=== PATIENT | female | born 1965 | race Caucasian/White ===

== ENCOUNTER 2016-10-06 17:02 | Inpatient (IN) ==
[2016-10-06] MEDS ORDERED: CLINDAMYCIN INJ 600 MG in PREMIX 1 EACH IV STA (17:19)
[2016-10-06] MEDS ORDERED: SODIUM CHLORIDE 0.9% 500 ML IV STA (17:19)
[2016-10-06 18:12] LABS: Basophils # 0.1 10*3/uL (0.0-0.2); Basophils % 0.7 % (0.0-0.8); Eosinophils # 0.3 10*3/uL (0.0-0.87); Eosinophils % 3.7 % (0.00-10.9); Hematocrit 31.1 VOL% (35.7-47.0); Hemoglobin 10.5 GM/DL (12.0-16.0); Immature Granulocytes % 0.5 %; Immature Granulocytes Absolute 0.04 #; Lymphocytes # 1.4 10*3/uL (1.4-4.0); Lymphocytes % 17.3 % (21.3-54.2); Mean Corpuscular HGB Conc 33.8 GM/DL (32-36); Mean Corpuscular Hemoglobin 31 PG (27-34); Mean Corpuscular Volume 91.2 FL (87-102); Mean Platelet Volume 10.2 FL (9.6-12.0); Monocytes # 0.6 10*3/uL (0.11-0.8); Monocytes % 6.7 % (1.7-12.7); Neutrophils # 5.8 10*3/uL (1.4-7.4); Neutrophils % 71.1 % (38.7-73.9); Platelet Count 272 10*3/uL (130-400); Red Blood Count 3.41 10*6/uL (3.8-5.5); Red Cell Distribution Width 15.8 % (9.3-17.3); White Blood Count 8.2 10*3/uL (4.5-13.71)
--- NOTE | 2016-10-06 18:17 | CT Report ---
History: Nausea and vomiting. History of CVA Date: 10/06/2016 Study: CT head without contrast Comparison exam: July 30, [address] sections were obtained through the head without IV contrast. Total DLP measures 282.6 mGy*cm. The patient has undergone interval cranioplasty since the comparison CT. Metallic plate and screws stabilize a bony calvarial flap. The ventricles are midline in position without evidence of hydrocephalus. There is evidence of a chronic large hemispheric stroke on the left as before, with ex vacuo dilatation of the left lateral ventricle. There is also chronic lacunar infarction in the left putamen and posterior left internal capsule. There is no definite acute hemorrhage or new area of ischemia. There is no new intracranial mass. There is a postsurgical fluid collection in the left parietal scalp, superficial to the calvarium, measuring over 4 cm. This could represent postsurgical seroma. No significant interval changes have occurred otherwise. Impression: There is evidence of interval cranioplasty on the left. Previous ischemic changes from a large hemispheric stroke on the left are noted as before. No new areas of hemorrhage or obvious new stroke. Postsurgical soft tissue swelling and fluid collection superficial to the left parietal calvarium PROCEDURE INTERPRETED AT [facility] DEPARTMENT OF RADIOLOGY Final Report Signed by: Dr. Annabel Valenzuela
[2016-10-06] MEDS ORDERED: CLINDAMYCIN INJ 50 ML IV ONE (18:28)
--- NOTE | 2016-10-06 18:29 | CT Report ---
History: Left parotid swelling Date: 10/06/2016 Study: CT soft tissue neck with IV contrast Comparison exam: Neck CT August 29, [address] sections were obtained through the soft tissue neck following 80 mL Omnipaque 350 IV contrast. Multiplanar reconstruction images are also evaluated. Total DLP measures 282.6 mGy*cm. There is extensive lymphadenopathy on the left. This includes a 20 mm short axis diameter left submandibular node, 19 mm internal jugular chain node inferior to the hyoid level, additional left internal jugular lymphadenopathy superior and inferior to the level of hyoid, and enlarged posterior cervical lymph nodes at and below the level of the hyoid. Some mildly enlarged intraparotid nodes are present as well. There is no intrinsic thyroid mass. There are remote tracheostomy changes below the level of the thyroid gland with mild narrowing of the trachea at this level. There is no intrinsic thyroid lesion. There is lobular mucosal thickening in the right maxillary sinus. There is mild scattered cervical degenerative disc narrowing. Impression: Extensive lymphadenopathy on the left. Consider reactive lymphadenopathy, lymphoma, and metastatic disease PROCEDURE INTERPRETED AT [facility] DEPARTMENT OF RADIOLOGY Final Report Signed by: Dr. Annabel Valenzuela
[2016-10-06 18:32] LABS: Albumin 3.3 G/DL (3.4-5.0); Bilirubin,Total 0.4 MG/DL (0.2-1.0); Calcium 8.9 MG/DL (8.5-10.1); Osmolality,Calculated 280.3 MOS/KG (273-304); Potassium 4.2 MMOL/L (3.5-5.1)
--- NOTE | 2016-10-06 18:50 | XRay Report ---
History: Dyspnea Date: 10/06/2016 Study: Chest x-ray AP portable Comparison exam: Chest x-ray September 19, 2016 The cardiac silhouette is borderline prominent. The mediastinal contours are similar to the previous study. The pulmonary vasculature is not engorged. There is some mild hazy and strandy increased perihilar parenchymal disease which could represent pneumonia. There is no gross pleural effusion. Shallow inspiration. The osseous structures are unchanged. The tracheostomy tube has been removed. Impression: Bilateral perihilar and infrahilar infiltrate which could represent pneumonia. Followup x-rays may provide clarification PROCEDURE INTERPRETED AT [facility] DEPARTMENT OF RADIOLOGY Final Report Signed by: Dr. Annabel Valenzuela
[2016-10-06] MEDS ORDERED: DEXAMETHASONE 4 MG/1 ML VIAL IV STA (19:09)
[2016-10-06] MEDS ORDERED: PIPERACILLIN/TAZOBACTAM 3,375 MG in SODIUM CHLORIDE 0.9% 100 ML IV STA (19:09)
[2016-10-06] MEDS ORDERED: DEXAMETHASONE 10 MG/1 ML VIAL ONE (19:39)
[2016-10-06] MEDS ORDERED: PIPERACILLIN/TAZOBACTAM 3,375 MG VIAL IV ONE (19:39)
--- NOTE | 2016-10-06 19:42 | Hospitalist History & Physical ---
Assessment and Plan - Time spent with patient Time spent with patient: Greater than 30 minutes (1) Parotid swelling Status: Acute Assessment and plan: She has left parotid swelling. We'll place her in ICU overnight for close monitoring of her airway. She's been cultured and placed on empiric IV antibiotics. We'll consult ENT for their evaluation in the morning. Of note her chest x-ray reveals possible pneumonitis however she is having no pulmonary symptoms at this time. We will continue low-dose O2, nebulizer therapy, IV antibiotics. 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 She's been at [facility]. Been no recent noted neurologic deterioration her condition. We'll continue current medical regimen and plan transfer back to [facility] once her acute issues have been resolved. Current Visit: No (4) Right hemiplegia Status: Chronic Current Visit: No (5) Seizures Status: Chronic Assessment and plan: No recent seizure activity documented. We'll continue her current antiepileptics. Current Visit: No (6) Status post craniotomy Status: Chronic Current Visit: No (7) Status post insertion of percutaneous endoscopic gastrostomy (PEG) tube Status: Chronic Assessment and plan: She received enteral feedings per PEG tube. We'll hold nothing by mouth for tonight and reinitiate after ENT evaluation in the a.m. Current Visit: No (8) Status post tracheostomy Status: Chronic Assessment and plan: Tracheostomy site appears to be healing well. We'll continue to follow. Current Visit: No History of Present Illness Chief complaint: clammy, nausea, vomiting, left neck swelling History of present illness: Ms. Goddard is a 51 year old female who is been at [facility] after sustaining a hemorrhagic followed by ischemic cerebrovascular accident. Her states he was called today and check an episode where she was clammy with associated nausea and vomiting. She had some swelling about her left neck yesterday which worsened today. There's no history of fever, chest pain, cough , shortness of breath, abdominal pain, melena, hematochezia, hematemesis. She is a phasic will obey simple commands. She previous tracheotomy which is healing and receives feedings per PEG tube. She was evaluated in our emergency room and is felt that she would benefit from admission with close observation in the ICU overnight, IV antibiotics empirically, and ENT evaluation in the a.m. Home Medications Medication Instructions Recorded Confirmed Type Acyclovir [Acyclovir Cap/Tab] 400 mg PO BID 03/17/15 10/06/16 History Amitriptyline [Elavil] 20 mg PO BEDTIME 03/17/15 10/06/16 History Dextroamphetamine/Amphetamine 30 mg PO AC BREAKFAST 03/17/15 10/06/16 History [Adderall XR] Loratadine [Claritin] 10 mg PO DAILY PRN 03/17/15 10/06/16 History Methocarbamol Tab [Robaxin Tab] 750 mg PO BID 03/17/15 10/06/16 History Atorvastatin [Lipitor] 10 mg PO BEDTIME 09/18/16 10/06/16 History Hydrocodone/Acetaminophen 1 each PO Q6H PRN 09/18/16 10/06/16 History [Hydrocodon-Acetaminophen 5-325] Naproxen [Naprosyn Tab] 500 mg PO DAILY 09/18/16 10/06/16 History Pantoprazole Tab [Protonix Tab] 40 mg PO DAILY 09/18/16 10/06/16 History guaiFENesin/DM ER 600-30 [Mucinex 1 tablet PO BID 09/18/16 10/06/16 History Dm] levETIRAcetam [Levetiracetam] 1,000 mg PO BID 09/18/16 10/06/16 History Acetaminophen [Acetaminophen ER 650 mg PO Q6H PRN 10/06/16 10/06/16 History Tab] Alum/Mag/Simeth Max Str Liquid 30 ml PO Q6H PRN 10/06/16 10/06/16 History [Mylanta Max Strength Liquid] Enoxaparin Sodium 40 mg SUBCUT Q24H 10/06/16 10/06/16 History HYDROcodone/ACETAMIN 5-325 [[place] 2 tablet PO Q6H PRN 10/06/16 10/06/16 History 5-325] Magnesium Hydroxide Susp [Milk of 30 ml PO DAILY PRN 10/06/16 10/06/16 History Magnesia] Nitrofurantoin Macro/[place] 100 mg PO BID 10/06/16 10/06/16 History [Macrobid] Ondansetron HCl/Pf [Ondansetron 4 4 mg IJ Q6H PRN 10/06/16 10/06/16 History mg/2 ml Ampule] Ondansetron Tab [Zofran Tab] 4 mg PO Q6H PRN 10/06/16 10/06/16 History Polyethylene Glycol Powder 17 gm PO DAILY PRN 10/06/16 10/06/16 History [Miralax] Allergies Allergy/AdvReac Type Severity Reaction Status Date / Time No Known Allergies Allergy Verified 03/17/15 13:59 Medical,Surgical,& Family Hx - Medical History Cardio: History of: Hypertension Psychological: History of: ADHD, Depression Neurology: History of: Cerebrovascular Accident (February 2016), Migraine Genitourinary: History of: Recurring Urinary Tract Infections Gastrointestinal: History of: GI Problems (Lactose intolerant) Musculoskeletal: History of: Musculoskeletal Problems (fibromyalgia) Other: History of: Miscellaneous Medical Problems (narcolepsy) - Surgical History Cardiac Surgeries: Sugical HX of: Cardiac Catheterization (x2) Abdominal Surgeries: Patient denies: Abdominal Surgery Reproductive Surgeries: Patient denies;: Genitourinary Surgery, Gynecologic Surgery Additional Surgical History: She's had craniotomy and tracheostomy - Family History Family History: Reports;: Family Cancer (BROTHER), Family Diabetes (FATHER), Family Hypertension (MOTHER AND FATHER), Family Stroke (FAHTER) - Social History Smoking Status: Former smoker Frequency of Alcohol Use: None Type of Drug Use: None 12 point system: reviewed and no additional remarkable complaints except as stated Exam - Constitutional Vitals: Period Temp Pulse Resp BP Sys/Mcwilliams Pulse Ox Last 24 Hr 97.8 F-97.8 F 92-92 18-18 106-106/72-72 97 General appearance: no acute distress - Head Head exam: Present: other (postcraniotomy changes) - Eye Eye exam: Present: EOMI Pupils: Present: DUSTIN - ENT ENT exam: Present: normal oropharynx - Neck Neck exam: Present: other (tender palpable mass over the parotid and left anterior neck; old tracheostomy site with dressing applied with no evidence of purulence or fluctuance or erythema) - Respiratory Respiratory exam: Present: clear to auscultation bilaterally. Absent: rales, rhonchi, wheezes - Cardiovascular Cardiovascular exam: Present: regular rate and rhythm. Absent: systolic murmur , tachycardia - GI/Abdominal GI/Abdominal exam: Present: normal bowel sounds, soft, other (PEG tube in place) . Absent: distended, mass, tenderness, rebound - Extremities Exam Extremities exam: Absent: calf tenderness, edema - Back Exam Back exam: Present: normal inspection - Neurological Exam Neurological exam: Present: alert, other (a phasic with a right hemiparesis; she will obey simple commands) - Psychiatric Psychiatric exam: Absent: agitated, anxious - Skin Skin exam: Present: warm, dry. Absent: rash Results - Labs CBC & BMP: 10/06/16 18:02 10/06/16 18:02 Lab Results: I have reviewed the past 24 hour labs - Diagnostic Findings Procedure: Chest x-ray: report reviewed by me, CT: report reviewed by me
[2016-10-06] MEDS ORDERED: LORATADINE 10 MG TABLET PO PRN (21:03)
[2016-10-06] MEDS ORDERED: MAGNESIUM HYDROXIDE SUSP 30 ML UDCUP PO PRN (21:03)
[2016-10-06] MEDS ORDERED: ONDANSETRON 4 MG/2 ML VIAL IV PRN (21:03)
[2016-10-06] MEDS ORDERED: ACETAMINOPHEN 325 MG TABLET PO PRN (21:03)
[2016-10-06] MEDS ORDERED: ALBUTEROL 0.63 MG/3 ML NEB RESP TX PRN (21:03)
[2016-10-06] MEDS ORDERED: ONDANSETRON 4 MG TABLET PO PRN (21:03)
[2016-10-06] MEDS ORDERED: ALUMINUM/MAGNES/SIMETH MAX STR 30 ML UDCUP PO PRN (21:03)
[2016-10-06] MEDS: SODIUM CHLORIDE 0.9% 1,000 ML IV SCH (21:53)
[2016-10-06] MEDS: levETIRAcetam 500 MG TABLET PO SCH (21:58)
[2016-10-06] MEDS: AMITRIPTYLINE 10 MG TABLET PO SCH (21:58)
[2016-10-06] MEDS: ENOXAPARIN 40 MG/0.4 ML SYRINGE SUBCUT SCH (21:58)
[2016-10-06] MEDS: ATORVASTATIN 10 MG TABLET PO SCH (21:58)
[2016-10-06] MEDS: METHOCARBAMOL 750 MG TABLET PO SCH (21:59)
[2016-10-06] MEDS: ACYCLOVIR 200 MG CAPSULE PO SCH (21:59)
[2016-10-06] MEDS: guaiFENesin/DM ER 600-30 MG TABLET PO SCH (21:59)
[2016-10-06] MEDS: ALBUTEROL 0.63 MG/3 ML NEB RESP TX SCH (23:46)
[2016-10-07] MEDS: ALBUTEROL 0.63 MG/3 ML NEB RESP TX SCH ×6 (03:27→23:02)
[2016-10-07 04:51] LABS: Basophils % 0.5 % (0.0-0.8); Eosinophils % 0.2 % (0.00-10.9); Hematocrit 28.1 VOL% (35.7-47.0); Immature Granulocytes % 0.3 %; Immature Granulocytes Absolute 0.02 #; Lymphocytes # 0.9 10*3/uL (1.4-4.0); Lymphocytes % 13.6 % (21.3-54.2); Mean Corpuscular HGB Conc 35.6 GM/DL (32-36); Mean Corpuscular Hemoglobin 32 PG (27-34); Mean Corpuscular Volume 88.6 FL (87-102); Mean Platelet Volume 10.7 FL (9.6-12.0); Monocytes % 0.6 % (1.7-12.7); Neutrophils # 5.3 10*3/uL (1.4-7.4); Neutrophils % 84.8 % (38.7-73.9); Platelet Count 276 10*3/uL (130-400); Red Blood Count 3.17 10*6/uL (3.8-5.5); Red Cell Distribution Width 15.3 % (9.3-17.3); White Blood Count 6.2 10*3/uL (4.5-13.71)
[2016-10-07] MEDS: PIPERACILLIN/TAZOBACTAM 3,375 MG in SODIUM CHLORIDE 0.9% 100 ML IV SCH ×3 (05:04→20:24)
[2016-10-07] MEDS: SODIUM CHLORIDE 0.9% 1,000 ML IV SCH ×2 (05:05→18:26)
[2016-10-07 05:20] LABS: Calcium 8.4 MG/DL (8.5-10.1); Osmolality,Calculated 289.7 MOS/KG (273-304); Potassium 4.7 MMOL/L (3.5-5.1)
--- NOTE | 2016-10-07 08:38 | Hospitalist Progress Note ---
Assessment and Plan - Time spent with patient Time spent with patient: Less than 30 minutes (1) Parotid swelling Status: Acute Assessment and plan: Swelling also extends above and around the ear. There is a fluid collection in the left scalp region status post craniotomy and bone flap replacement. No fevers overnight. ENT consult reviewed. Needle aspiration pending for today. KUB ordered. 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 Patient continues to have swelling and discomfort underneath the left jaw and into the left neck. Patient seen and examined with nurse and her at the bedside. Exam - Constitutional Vitals: Period Temp Pulse Resp BP Sys/Mcwilliams Pulse Ox Last 24 Hr 96.3 F-98.4 F 61-89 15-19 80-128/52-90 91-100 General appearance: no acute distress - Head Head exam: Present: hematoma, other (craniotomy noted) - Eye Pupils: Present: DUSTIN - Neck Neck exam: Present: tenderness (Swelling also extends above and around the ear. There is a fluid collection in the left scalp region status post craniotomy and bone flap replacement.) - Respiratory Respiratory exam: Present: clear to auscultation bilaterally - Cardiovascular Cardiovascular exam: Present: regular rate and rhythm - GI/Abdominal GI/Abdominal exam: Present: normal bowel sounds - Extremities Exam Extremities exam: Absent: edema - Neurological Exam Neurological exam: Present: alert, other (aphasic, right hemiparesis noted) - Skin Skin exam: Present: normal color, dry, intact. Absent: rash Results - Labs CBC & BMP: 10/07/16 03:36 10/07/16 03:36 Lab Results: I have reviewed the past 24 hour labs Specialty Discharge - Follow Up or Referrals - Discharge Medications No Action Acyclovir [Acyclovir Cap/Tab] 400 mg PO BID Dextroamphetamine/Amphetamine [Adderall XR] 30 mg PO AC BREAKFAST Amitriptyline [Elavil] 20 mg PO BEDTIME Loratadine [Claritin] 10 mg PO DAILY PRN PRN Reason: Allergy Symptoms Methocarbamol Tab [Robaxin Tab] 750 mg PO BID Polyethylene Glycol Powder [Miralax] 17 gm PO DAILY PRN PRN Reason: Constipation Ondansetron Tab [Zofran Tab] 4 mg PO Q6H PRN PRN Reason: Nausea/Vomiting Nitrofurantoin Macro/[place] [Macrobid] 100 mg PO BID Magnesium Hydroxide Susp [Milk of Magnesia] 30 ml PO DAILY PRN PRN Reason: Indigestion Enoxaparin Sodium 40 mg SUBCUT Q24H Alum/Mag/Simeth Max Str Liquid [Mylanta Max Strength Liquid] 30 ml PO Q6H PRN PRN Reason: Indigestion HYDROcodone/ACETAMIN 5-325 [[place] 5-325] 2 tablet PO Q6H PRN PRN Reason: Pain Ondansetron HCl/Pf [Ondansetron 4 mg/2 ml Ampule] 4 mg IJ Q6H PRN PRN Reason: Nausea/Vomiting Acetaminophen [Acetaminophen ER Tab] 650 mg PO Q6H PRN PRN Reason: Fever levETIRAcetam [Levetiracetam] 1,000 mg PO BID Pantoprazole Tab [Protonix Tab] 40 mg PO DAILY Naproxen [Naprosyn Tab] 500 mg PO DAILY guaiFENesin/DM ER 600-30 [Mucinex Dm] 1 tablet PO BID Atorvastatin [Lipitor] 10 mg PO BEDTIME Hydrocodone/Acetaminophen [Hydrocodon-Acetaminophen 5-325] 1 each PO Q6H PRN PRN Reason: Pain Moderate (4-7)
--- NOTE | 2016-10-07 09:40 | XRay Report ---
XR KUB Indication: Abdominal pain. Comparison: Abdominal series 03/21/2010. Technique: Supine AP image of the abdomen was obtained. Findings: Lung bases are clear. There is no evidence of organomegaly. Bowel gas pattern is unremarkable. Renal contours are bilaterally symmetric. Bones and soft tissues demonstrate no significant abnormalities. Gastrostomy tube is present within the left upper abdomen. Impression: 1. No active process is demonstrated within the abdomen or pelvis. 10/07/2016 9:37 AM PROCEDURE INTERPRETED AT [facility] DEPARTMENT OF RADIOLOGY Final Report Signed by: Dr. Sen Tellez
[2016-10-07] MEDS: ACYCLOVIR 200 MG CAPSULE PO SCH ×2 (10:10→20:27)
[2016-10-07] MEDS: guaiFENesin/DM ER 600-30 MG TABLET PO SCH ×2 (10:10→20:25)
[2016-10-07] MEDS: METHOCARBAMOL 750 MG TABLET PO SCH ×2 (10:12→20:26)
[2016-10-07] MEDS: PANTOPRAZOLE 40 MG TABLET PO SCH (10:13)
[2016-10-07] MEDS: levETIRAcetam 500 MG TABLET PO SCH ×2 (10:13→20:28)
[2016-10-07] MEDS: DEXTROAMPHETAMINE PO SCH (13:48)
[2016-10-07] MEDS: AMPHETAMINE PO SCH (13:48)
[2016-10-07] MEDS: fentaNYL 100 MCG/2 ML VIAL IV SCH ×3 (14:34→22:30)
[2016-10-07] MEDS: AMITRIPTYLINE 10 MG TABLET PO SCH (20:25)
[2016-10-07] MEDS: ATORVASTATIN 10 MG TABLET PO SCH (20:26)
[2016-10-07] MEDS: ENOXAPARIN 40 MG/0.4 ML SYRINGE SUBCUT SCH (20:28)
[2016-10-08] MEDS: SODIUM CHLORIDE 0.9% 1,000 ML IV SCH ×3 (01:24→16:09)
[2016-10-08] MEDS: ALBUTEROL 0.63 MG/3 ML NEB RESP TX SCH ×6 (03:03→23:50)
[2016-10-08] MEDS: PIPERACILLIN/TAZOBACTAM 3,375 MG in SODIUM CHLORIDE 0.9% 100 ML IV SCH ×3 (03:43→21:30)
--- NOTE | 2016-10-08 09:02 | Hospitalist Progress Note ---
Assessment and Plan (1) Parotid swelling Status: Acute Assessment and plan: Swelling also extends above and around the ear. There is a fluid collection in the left scalp region status post craniotomy and bone flap replacement. No fevers overnight. Needle aspiration pending for today. 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 No acute events overnight. No fever or chills. She continues to have pain and swelling in the left side of her neck. Needle biopsy is planned with interventional radiology for today. Could potentially move to the floor after her procedure if she is stable. Exam - Constitutional Vitals: Period Temp Pulse Resp BP Sys/Mcwilliams Pulse Ox Last 24 Hr 96.4 F-98.1 F 63-95 13-29 79-110/49-78 94-100 General appearance: no acute distress - Head Head exam: Present: other (previous craniotomy noted) - Eye Eye exam: Present: EOMI Pupils: Present: DUSTIN - Neck Neck exam: Present: other (previous tracheostomy noted. Swelling and tenderness without redness persists on the left neck. ) - Respiratory Respiratory exam: Present: clear to auscultation bilaterally - Cardiovascular Cardiovascular exam: Present: regular rate and rhythm - GI/Abdominal GI/Abdominal exam: Present: normal bowel sounds, soft - Extremities Exam Extremities exam: Present: normal inspection, other (right hemiparesis.). Absent: edema - Neurological Exam Neurological exam: Present: alert - Psychiatric Psychiatric exam: Present: normal affect Results - Labs CBC & BMP: 10/07/16 03:36 10/07/16 03:36 Lab Results: I have reviewed the past 24 hour labs Specialty Discharge - Follow Up or Referrals - Discharge Medications No Action Acyclovir [Acyclovir Cap/Tab] 400 mg PO BID Dextroamphetamine/Amphetamine [Adderall XR] 30 mg PO AC BREAKFAST Amitriptyline [Elavil] 20 mg PO BEDTIME Loratadine [Claritin] 10 mg PO DAILY PRN PRN Reason: Allergy Symptoms Methocarbamol Tab [Robaxin Tab] 750 mg PO BID Polyethylene Glycol Powder [Miralax] 17 gm PO DAILY PRN PRN Reason: Constipation Ondansetron Tab [Zofran Tab] 4 mg PO Q6H PRN PRN Reason: Nausea/Vomiting Nitrofurantoin Macro/[place] [Macrobid] 100 mg PO BID Magnesium Hydroxide Susp [Milk of Magnesia] 30 ml PO DAILY PRN PRN Reason: Indigestion Enoxaparin Sodium 40 mg SUBCUT Q24H Alum/Mag/Simeth Max Str Liquid [Mylanta Max Strength Liquid] 30 ml PO Q6H PRN PRN Reason: Indigestion HYDROcodone/ACETAMIN 5-325 [[place] 5-325] 2 tablet PO Q6H PRN PRN Reason: Pain Ondansetron HCl/Pf [Ondansetron 4 mg/2 ml Ampule] 4 mg IJ Q6H PRN PRN Reason: Nausea/Vomiting Acetaminophen [Acetaminophen ER Tab] 650 mg PO Q6H PRN PRN Reason: Fever levETIRAcetam [Levetiracetam] 1,000 mg PO BID Pantoprazole Tab [Protonix Tab] 40 mg PO DAILY Naproxen [Naprosyn Tab] 500 mg PO DAILY guaiFENesin/DM ER 600-30 [Mucinex Dm] 1 tablet PO BID Atorvastatin [Lipitor] 10 mg PO BEDTIME Hydrocodone/Acetaminophen [Hydrocodon-Acetaminophen 5-325] 1 each PO Q6H PRN PRN Reason: Pain Moderate (4-7)
[2016-10-08] MEDS: AMPHETAMINE PO SCH (09:24)
[2016-10-08] MEDS: DEXTROAMPHETAMINE PO SCH (09:24)
[2016-10-08] MEDS: fentaNYL 100 MCG/2 ML VIAL IV SCH ×3 (09:25→14:11)
[2016-10-08] MEDS: PANTOPRAZOLE 40 MG TABLET PO SCH (09:25)
[2016-10-08] MEDS: METHOCARBAMOL 750 MG TABLET PO SCH ×2 (09:25→21:29)
[2016-10-08] MEDS: guaiFENesin/DM ER 600-30 MG TABLET PO SCH ×2 (09:25→21:29)
[2016-10-08] MEDS: ACYCLOVIR 200 MG CAPSULE PO SCH ×2 (09:25→21:29)
--- NOTE | 2016-10-08 09:27 | IR History and Physical Update ---
IR Pre-Procedure - History and Physical H&P was reviewed, the patient examined and there: are no changes in the patients condition since last H&P was completed. Reason for procedure:: 51-year-old female with complicated medical course including recent stroke and new onset left neck swelling. CT shows extensive lymphadenopathy in the left neck of indeterminate etiology. Biopsy requested. - Dictation Physical: refer to scanned H&P - Physical Exam Vital Signs: Last Vital Signs Temp 97.5 F L 10/08/16 07:00 Pulse 67 10/08/16 08:00 Resp 15 10/08/16 08:00 BP 89/63 10/08/16 08:00 Pulse Ox 100 10/08/16 08:00 Mental Status: alert and oriented (expressive aphasia) - Sedation IR anesthesia plan for sedation: minimal ASA Class: III - Risks Risks: Bleeding, infection, pain. Plan ultrasound-guided FNA of left neck nodes, for routine pathology, culture and Gram stain and flow cytometry. Risks and benefits discussed with: patient, spouse Consent obtained from: patient, spouse All questions answered: Yes
[2016-10-08] MEDS: levETIRAcetam 500 MG TABLET PO SCH ×2 (10:45→21:29)
--- NOTE | 2016-10-08 14:17 | Post Interventional Procedure ---
Pre-op diagnosis: left neck lymphadenopathy Post-op diagnosis: same Procedure: Ultrasound-guided biopsy left neck lymph nodes Radiologist: Jayro Lake Anesthesia: local Specimens: other (218 Hemant core samples for flow cytometry, 218-gauge core samples for routine pathology) Estimated blood loss: none Complications: none Condition: stable Description/Findings: Uncomplicated ultrasound-guided biopsy reactive left neck lymphadenopathy. No abnormally solid mass identified on ultrasound. Tissue consistency was soft suggesting simply reactive lymphadenopathy as opposed to infiltrative neoplastic process.
--- NOTE | 2016-10-08 15:43 | Ultrasound Report ---
US biopsy soft tissue neck jordana Indication: Lymphadenopathy throughout the left neck. Ultrasound-guided biopsy of left neck lymphadenopathy Description: A formal timeout performed. Sonographic evaluation of the left neck was then performed showing extensive lymphadenopathy with multiple enlarged lymph nodes that maintain their normal architecture. No solid mass is seen. Specifically, no discrete parotid lesion is identified as is described in history. Regardless, the left neck was prepped and draped in sterile fashion. Under sonographic guidance, a 17-gauge guide needle was advanced into the dominant left cervical chain lymph node identified. Captured sonographic image documents needle position. Through the needle, multiple 18-gauge core samples were obtained. Needle was removed. Final imaging showed no evidence of hematoma. Patient tolerated the procedure well. Specimen: [id number] core samples for flow cytometry, [id number] core samples for routine pathology. Impression: Extensive lymphadenopathy throughout the left neck sampled with 18-gauge core biopsy as described above. No mass is separate from the identified lymph nodes in the left neck present on ultrasound. No parotid mass. PROCEDURE INTERPRETED AT [facility] DEPARTMENT OF RADIOLOGY Final Report Signed by: Jayro Lake M.D.
--- NOTE | 2016-10-08 17:09 | Consultation ---
Assessment and Plan - Time spent with patient Time spent with patient: Greater than 30 minutes (1) Reactive cervical lymphadenopathy Status: Acute Assessment and plan: I recommend confirmation with ultrasound-guided needle biopsy if possible and I recommend interventional radiology consultation for this. I do feel strongly this is just reactive cervical lymphadenopathy and I would recommend to move forward with massage physical therapy range of motion exercises and other lymphatic drainage techniques to improve this reactive cervical lymphadenopathy. I demonstrated some of the different options and treatment techniques with nursing and discussed the if it appears this is too painful for the patient she may be dosed with 50 g of fentanyl IV if that is cleared and okay with primary care physician prior to lymphatic drainage techniques. Thank you very much for this consult I will follow this patient intermittently I will be away from the hospital the rest of the day on 10/07/2016 but we will continue to follow this patient intermittently to watch for ultrasound guided needle biopsy results. Current Visit: Yes (2) Cervicalgia Status: Acute Current Visit: Yes (3) CVA (cerebral vascular accident) Status: Chronic Current Visit: No History of Present Illness - Data of Consult Patient: new to practice Consult date: 10/07/16 - Consult Narrative Reason for consult: Cervical lymphadenopathy History of present illness: Ms. Goddard is a 51 year old female status post cranial bone flap repositioning with new onset left cervical lymph adenopathy/lymphadenitis/possible neoplastic process. The patient notes tenderness to palpation which has not improved and ENT is consulted for evaluation and treatment recommendation CC: Gabino Campos MD - Home Medications and Allergies Home Medications: Home Medications Medication Instructions Recorded Confirmed Type Acyclovir [Acyclovir Cap/Tab] 400 mg PO BID 03/17/15 10/06/16 History Amitriptyline [Elavil] 20 mg PO BEDTIME 03/17/15 10/06/16 History Dextroamphetamine/Amphetamine 30 mg PO AC BREAKFAST 03/17/15 10/06/16 History [Adderall XR] Loratadine [Claritin] 10 mg PO DAILY PRN 03/17/15 10/06/16 History Methocarbamol Tab [Robaxin Tab] 750 mg PO BID 03/17/15 10/06/16 History Atorvastatin [Lipitor] 10 mg PO BEDTIME 09/18/16 10/06/16 History Hydrocodone/Acetaminophen 1 each PO Q6H PRN 09/18/16 10/06/16 History [Hydrocodon-Acetaminophen 5-325] Naproxen [Naprosyn Tab] 500 mg PO DAILY 09/18/16 10/06/16 History Pantoprazole Tab [Protonix Tab] 40 mg PO DAILY 09/18/16 10/06/16 History guaiFENesin/DM ER 600-30 [Mucinex 1 tablet PO BID 09/18/16 10/06/16 History Dm] levETIRAcetam [Levetiracetam] 1,000 mg PO BID 09/18/16 10/06/16 History Acetaminophen [Acetaminophen ER 650 mg PO Q6H PRN 10/06/16 10/06/16 History Tab] Alum/Mag/Simeth Max Str Liquid 30 ml PO Q6H PRN 10/06/16 10/06/16 History [Mylanta Max Strength Liquid] Enoxaparin Sodium 40 mg SUBCUT Q24H 10/06/16 10/06/16 History HYDROcodone/ACETAMIN 5-325 [[place] 2 tablet PO Q6H PRN 10/06/16 10/06/16 History 5-325] Magnesium Hydroxide Susp [Milk of 30 ml PO DAILY PRN 10/06/16 10/06/16 History Magnesia] Nitrofurantoin Macro/[place] 100 mg PO BID 10/06/16 10/06/16 History [Macrobid] Ondansetron HCl/Pf [Ondansetron 4 4 mg IJ Q6H PRN 10/06/16 10/06/16 History mg/2 ml Ampule] Ondansetron Tab [Zofran Tab] 4 mg PO Q6H PRN 10/06/16 10/06/16 History Polyethylene Glycol Powder 17 gm PO DAILY PRN 10/06/16 10/06/16 History [Miralax] Allergies/Adverse Reactions: Allergies Allergy/AdvReac Type Severity Reaction Status Date / Time No Known Allergies Allergy Verified 03/17/15 13:59 ROS unobtainable: due to mental status Medical,Surgical,& Family Hx - Medical History Cardio: History of: Hypertension (in the past. not taking meds at present) Psychological: History of: ADHD, Depression Neurology: History of: Cerebral Hemorrhage (disection), Cerebrovascular Accident (February 2016), Migraine, Seizures (after stroke in hospital), TIA ( possible in past?) No history of: Cerebral Palsy, Dementia, Parkinson's Disease, Peripheral Neuropathy, Vertigo, Neurologocal Cancer HEENT: History of: HEENT Problems (old trach. just d/c'd in september 2016) Rheumatology: History of;: Fibromyalgia Respiratory: History of: Intubation, Pneumonia Genitourinary: History of: Recurring Urinary Tract Infections Gastrointestinal: History of: GI Problems (Lactose intolerant) Musculoskeletal: History of: Musculoskeletal Problems (spondylosis. right side paralysis) Other: History of: Miscellaneous Medical Problems (narcolepsy) - Surgical History Cardiac Surgeries: Sugical HX of: Cardiac Catheterization (x2 (all negative)) Neurologic Surgeries: Surgical HX of: Cerebral Hemorrhage (disection), Neurologic Surgery (crainiotomy) Abdominal Surgeries: Surgical HX of: Abdominal Surgery (old peg. but does not use anymore) Reproductive Surgeries: Surgical HX of;: Gynecologic Surgery, Hysterectomy Patient denies;: Genitourinary Surgery - Family History Family History: Reports;: Family Cancer (mother), Family Diabetes (FATHER), Family Heart Disease (father and brother), Family Hypertension (MOTHER AND FATHER), Family Stroke (father) - Social History Smoking Status: Former smoker Frequency of Alcohol Use: None Type of Drug Use: None Exam - Constitutional Vitals: Period Temp Pulse Resp BP Sys/[place]illiams Pulse Ox Last 24 Hr 97.1 F-98.1 F 64-95 13-29 83-113/50-73 95-100 General appearance: mild distress, over weight - Head Head exam: Present: hematoma, other (Status post bone flap repositioning with secondary healing and swelling) - ENT ENT exam: Present: normal exam, normal external ear exam, normal oropharynx - Neck Neck exam: Present: lymphadenopathy (Clinically consistent with reactive lymphadenopathy versus lymphadenitis from bone flap repositioning no evidence of gross infection and no evidence of an underlying malignancy and clinically does not present like an underlying malignancy especially considering the level of tenderness. I would recommend ultrasound guided needle biopsy but I feel confident that it would be more than safe to proceed with massage and different lymphatic pump procedures to encourage drainage from the reactive lymphadenitis) , tenderness - GI/Abdominal GI/Abdominal exam: Present: soft, other (No gross organomegaly) - Neurological Exam Neurological exam: Present: altered (See previous surgical history this would be considered baseline at this point) - Psychiatric Psychiatric exam: Present: other (See above) - Skin Skin exam: Present: normal color, warm Results - Labs CBC & BMP: 10/07/16 03:36 10/07/16 03:36 Lab Results: I have reviewed the past 24 hour labs (Normal white blood cell count consistent with a reactive lymphadenitis) - Diagnostic Findings Procedure: CT: image reviewed by me, report reviewed by me (This appears to be a normal physiologic pathophysiologic reactive lymphadenitis lymphadenopathy of the left lymphatic chain after bone flap repositioning) Specialty Discharge - Follow Up or Referrals - Discharge Medications No Action Acyclovir [Acyclovir Cap/Tab] 400 mg PO BID Dextroamphetamine/Amphetamine [Adderall XR] 30 mg PO AC BREAKFAST Amitriptyline [Elavil] 20 mg PO BEDTIME Loratadine [Claritin] 10 mg PO DAILY PRN PRN Reason: Allergy Symptoms Methocarbamol Tab [Robaxin Tab] 750 mg PO BID Polyethylene Glycol Powder [Miralax] 17 gm PO DAILY PRN PRN Reason: Constipation Ondansetron Tab [Zofran Tab] 4 mg PO Q6H PRN PRN Reason: Nausea/Vomiting Nitrofurantoin Macro/[place] [Macrobid] 100 mg PO BID Magnesium Hydroxide Susp [Milk of Magnesia] 30 ml PO DAILY PRN PRN Reason: Indigestion Enoxaparin Sodium 40 mg SUBCUT Q24H Alum/Mag/Simeth Max Str Liquid [Mylanta Max Strength Liquid] 30 ml PO Q6H PRN PRN Reason: Indigestion HYDROcodone/ACETAMIN 5-325 [[place] 5-325] 2 tablet PO Q6H PRN PRN Reason: Pain Ondansetron HCl/Pf [Ondansetron 4 mg/2 ml Ampule] 4 mg IJ Q6H PRN PRN Reason: Nausea/Vomiting Acetaminophen [Acetaminophen ER Tab] 650 mg PO Q6H PRN PRN Reason: Fever levETIRAcetam [Levetiracetam] 1,000 mg PO BID Pantoprazole Tab [Protonix Tab] 40 mg PO DAILY Naproxen [Naprosyn Tab] 500 mg PO DAILY guaiFENesin/DM ER 600-30 [Mucinex Dm] 1 tablet PO BID Atorvastatin [Lipitor] 10 mg PO BEDTIME Hydrocodone/Acetaminophen [Hydrocodon-Acetaminophen 5-325] 1 each PO Q6H PRN PRN Reason: Pain Moderate (4-7)
[2016-10-08] MEDS: ATORVASTATIN 10 MG TABLET PO SCH (21:28)
[2016-10-08] MEDS: AMITRIPTYLINE 10 MG TABLET PO SCH (21:28)
[2016-10-09] MEDS: PIPERACILLIN/TAZOBACTAM 3,375 MG in SODIUM CHLORIDE 0.9% 100 ML IV SCH ×3 (03:19→22:27)
[2016-10-09] MEDS: ALBUTEROL 0.63 MG/3 ML NEB RESP TX SCH ×5 (03:30→20:34)
[2016-10-09] MEDS: fentaNYL 100 MCG/2 ML VIAL IV SCH ×8 (05:03→22:27)
[2016-10-09 05:26] LABS: Basophils # 0.1 10*3/uL (0.0-0.2); Eosinophils # 0.1 10*3/uL (0.0-0.87); Eosinophils % 1.7 % (0.00-10.9); Hematocrit 28.7 VOL% (35.7-47.0); Hemoglobin 9.2 GM/DL (12.0-16.0); Immature Granulocytes % 0.4 %; Immature Granulocytes Absolute 0.02 #; Lymphocytes # 1.5 10*3/uL (1.4-4.0); Lymphocytes % 29.3 % (21.3-54.2); Mean Corpuscular HGB Conc 32.1 GM/DL (32-36); Mean Corpuscular Hemoglobin 29 PG (27-34); Mean Platelet Volume 10.5 FL (9.6-12.0); Monocytes # 0.5 10*3/uL (0.11-0.8); Monocytes % 9.6 % (1.7-12.7); Platelet Count 235 10*3/uL (130-400); Red Blood Count 3.19 10*6/uL (3.8-5.5); Red Cell Distribution Width 15.4 % (9.3-17.3); White Blood Count 5.2 10*3/uL (4.5-13.71)
[2016-10-09] MEDS: SODIUM CHLORIDE 0.9% 1,000 ML IV SCH ×4 (09:20→21:43)
[2016-10-09] MEDS: AMPHETAMINE PO SCH (09:32)
[2016-10-09] MEDS: DEXTROAMPHETAMINE PO SCH (09:32)
[2016-10-09] MEDS: PANTOPRAZOLE 40 MG TABLET PO SCH (09:33)
[2016-10-09] MEDS: guaiFENesin/DM ER 600-30 MG TABLET PO SCH ×2 (09:33→22:23)
[2016-10-09] MEDS: METHOCARBAMOL 750 MG TABLET PO SCH ×2 (09:33→22:23)
[2016-10-09] MEDS: levETIRAcetam 500 MG TABLET PO SCH ×2 (09:33→22:23)
[2016-10-09] MEDS: ACYCLOVIR 200 MG CAPSULE PO SCH ×2 (09:33→22:22)
--- NOTE | 2016-10-09 17:10 | Hospitalist Progress Note ---
Assessment and Plan (1) Reactive cervical lymphadenopathy Status: Acute Assessment and plan: Swelling also extends above and around the ear. There is a fluid collection in the left scalp region status post craniotomy and bone flap replacement. No fevers overnight. Continue Zosyn IV -empiric abx Aspiration was performed as well as biopsy. Results pending. No significant change in the left side of the neck Current Visit: Yes (2) Parotid swelling Status: Acute Assessment and plan: This does not appear to involve the parotid gland. According to the ultrasound and interventional radiology reports this is related to lymphadenopathy. No solid masses noted.. 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 Family member at the bedside. No acute events overnight. She continues to have left neck swelling and lymphadenopathy. Exam - Constitutional Vitals: Period Temp Pulse Resp BP Sys/Mcwilliams Pulse Ox Last 24 Hr 97.5 F-98.3 F 61-96 16-20 87-115/55-74 94-99 General appearance: no acute distress - Head Head exam: Present: other (craniotomy changes noted.) - Neck Neck exam: Present: lymphadenopathy, tenderness, other (pain and swelling to palpation left side of the neck) - Respiratory Respiratory exam: Present: clear to auscultation bilaterally - Cardiovascular Cardiovascular exam: Present: regular rate and rhythm - GI/Abdominal GI/Abdominal exam: Present: normal bowel sounds, soft - Neurological Exam Neurological exam: Present: alert Results - Labs CBC & BMP: 10/09/16 04:29 10/07/16 03:36 Lab Results: I have reviewed the past 24 hour labs Specialty Discharge - Follow Up or Referrals - Discharge Medications No Action Acyclovir [Acyclovir Cap/Tab] 400 mg PO BID Dextroamphetamine/Amphetamine [Adderall XR] 30 mg PO AC BREAKFAST Amitriptyline [Elavil] 20 mg PO BEDTIME Loratadine [Claritin] 10 mg PO DAILY PRN PRN Reason: Allergy Symptoms Methocarbamol Tab [Robaxin Tab] 750 mg PO BID Polyethylene Glycol Powder [Miralax] 17 gm PO DAILY PRN PRN Reason: Constipation Ondansetron Tab [Zofran Tab] 4 mg PO Q6H PRN PRN Reason: Nausea/Vomiting Nitrofurantoin Macro/[place] [Macrobid] 100 mg PO BID Magnesium Hydroxide Susp [Milk of Magnesia] 30 ml PO DAILY PRN PRN Reason: Indigestion Enoxaparin Sodium 40 mg SUBCUT Q24H Alum/Mag/Simeth Max Str Liquid [Mylanta Max Strength Liquid] 30 ml PO Q6H PRN PRN Reason: Indigestion HYDROcodone/ACETAMIN 5-325 [[place] 5-325] 2 tablet PO Q6H PRN PRN Reason: Pain Ondansetron HCl/Pf [Ondansetron 4 mg/2 ml Ampule] 4 mg IJ Q6H PRN PRN Reason: Nausea/Vomiting Acetaminophen [Acetaminophen ER Tab] 650 mg PO Q6H PRN PRN Reason: Fever levETIRAcetam [Levetiracetam] 1,000 mg PO BID Pantoprazole Tab [Protonix Tab] 40 mg PO DAILY Naproxen [Naprosyn Tab] 500 mg PO DAILY guaiFENesin/DM ER 600-30 [Mucinex Dm] 1 tablet PO BID Atorvastatin [Lipitor] 10 mg PO BEDTIME Hydrocodone/Acetaminophen [Hydrocodon-Acetaminophen 5-325] 1 each PO Q6H PRN PRN Reason: Pain Moderate (4-7)
[2016-10-09] MEDS: AMITRIPTYLINE 10 MG TABLET PO SCH (22:23)
[2016-10-09] MEDS: ATORVASTATIN 10 MG TABLET PO SCH (22:23)
[2016-10-10] MEDS: ALBUTEROL 0.63 MG/3 ML NEB RESP TX SCH ×7 (00:05→23:28)
[2016-10-10] MEDS: PIPERACILLIN/TAZOBACTAM 3,375 MG in SODIUM CHLORIDE 0.9% 100 ML IV SCH ×3 (04:54→21:09)
[2016-10-10] MEDS: fentaNYL 100 MCG/2 ML VIAL IV SCH ×5 (06:24→23:44)
[2016-10-10] MEDS: METHOCARBAMOL 750 MG TABLET PO SCH ×2 (09:30→21:06)
[2016-10-10] MEDS: PANTOPRAZOLE 40 MG TABLET PO SCH (09:30)
[2016-10-10] MEDS: ACYCLOVIR 200 MG CAPSULE PO SCH ×2 (09:30→21:05)
[2016-10-10] MEDS: guaiFENesin/DM ER 600-30 MG TABLET PO SCH ×2 (09:30→21:06)
[2016-10-10] MEDS: levETIRAcetam 500 MG TABLET PO SCH ×2 (09:30→21:05)
[2016-10-10] MEDS: SODIUM CHLORIDE 0.9% 1,000 ML IV SCH ×2 (09:31→18:23)
--- NOTE | 2016-10-10 09:57 | Discharge Summary ---
Hospital Course - Hospital Course Hospital Course: 51-year-old female admitted with left neck swelling and pain. She was found to have acute lymphadenopathy without abscess formation. She was seen in consultation by ear nose and throat Dr. KIRK. She underwent a biopsy under ultrasound guidance. There were no masses. There were no pockets of infection or abscess or pus. She never had a fever. White blood cell count has remained normal. She was treated with Zosyn initially. Her hospital course has been uncomplicated. She continues to have some swelling and tenderness under the left jaw on the left neck consistent with her diagnosis of lymphadenopathy. This is likely reactive due to multiple procedures done on the left cranial cavity and previous craniotomy after stroke. She has been cleared for discharge back to [facility]. ENT recommends continued physical therapy to avoid any myositis involving the sternocleidomastoid muscle. He also recommended massage and stretching. She can follow-up as an outpatient with Dr. Kirk. 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 Specialty Discharge - Follow Up or Referrals - Discharge Medications No Action Acyclovir [Acyclovir Cap/Tab] 400 mg PO BID Dextroamphetamine/Amphetamine [Adderall XR] 30 mg PO AC BREAKFAST Amitriptyline [Elavil] 20 mg PO BEDTIME Loratadine [Claritin] 10 mg PO DAILY PRN PRN Reason: Allergy Symptoms Methocarbamol Tab [Robaxin Tab] 750 mg PO BID Polyethylene Glycol Powder [Miralax] 17 gm PO DAILY PRN PRN Reason: Constipation Ondansetron Tab [Zofran Tab] 4 mg PO Q6H PRN PRN Reason: Nausea/Vomiting Nitrofurantoin Macro/[place] [Macrobid] 100 mg PO BID Magnesium Hydroxide Susp [Milk of Magnesia] 30 ml PO DAILY PRN PRN Reason: Indigestion Enoxaparin Sodium 40 mg SUBCUT Q24H Alum/Mag/Simeth Max Str Liquid [Mylanta Max Strength Liquid] 30 ml PO Q6H PRN PRN Reason: Indigestion HYDROcodone/ACETAMIN 5-325 [[place] 5-325] 2 tablet PO Q6H PRN PRN Reason: Pain Ondansetron HCl/Pf [Ondansetron 4 mg/2 ml Ampule] 4 mg IJ Q6H PRN PRN Reason: Nausea/Vomiting Acetaminophen [Acetaminophen ER Tab] 650 mg PO Q6H PRN PRN Reason: Fever levETIRAcetam [Levetiracetam] 1,000 mg PO BID Pantoprazole Tab [Protonix Tab] 40 mg PO DAILY Naproxen [Naprosyn Tab] 500 mg PO DAILY guaiFENesin/DM ER 600-30 [Mucinex Dm] 1 tablet PO BID Atorvastatin [Lipitor] 10 mg PO BEDTIME Hydrocodone/Acetaminophen [Hydrocodon-Acetaminophen 5-325] 1 each PO Q6H PRN PRN Reason: Pain Moderate (4-7) Discharge Plan - Discharge Data Disposition: Disch/Xfer-Ip Rehab Fac Condition at Discharge: Stable Discharge Diet: advance to your usual diet Activity: as per physical therapy - Discharge Medications New oxyCODONE/ACETAMINOPHEN 5-325 [Percocet 5-325] 1 tablet PO Q6H #30 tablet Continue Acyclovir [Acyclovir Cap/Tab] 400 mg PO BID Dextroamphetamine/Amphetamine [Adderall XR] 30 mg PO AC BREAKFAST Amitriptyline [Elavil] 20 mg PO BEDTIME Loratadine [Claritin] 10 mg PO DAILY PRN PRN Reason: Allergy Symptoms Methocarbamol Tab [Robaxin Tab] 750 mg PO BID Polyethylene Glycol Powder [Miralax] 17 gm PO DAILY PRN PRN Reason: Constipation Ondansetron Tab [Zofran Tab] 4 mg PO Q6H PRN PRN Reason: Nausea/Vomiting Nitrofurantoin Macro/[place] [Macrobid] 100 mg PO BID Magnesium Hydroxide Susp [Milk of Magnesia] 30 ml PO DAILY PRN PRN Reason: Indigestion Enoxaparin Sodium 40 mg SUBCUT Q24H Alum/Mag/Simeth Max Str Liquid [Mylanta Max Strength Liquid] 30 ml PO Q6H PRN PRN Reason: Indigestion HYDROcodone/ACETAMIN 5-325 [[place] 5-325] 2 tablet PO Q6H PRN PRN Reason: Pain Ondansetron HCl/Pf [Ondansetron 4 mg/2 ml Ampule] 4 mg IJ Q6H PRN PRN Reason: Nausea/Vomiting Acetaminophen [Acetaminophen ER Tab] 650 mg PO Q6H PRN PRN Reason: Fever Hydrocodone/Acetaminophen [Hydrocodon-Acetaminophen 5-325] 1 each PO Q6H PRN #30 tablet PRN Reason: Pain Moderate (4-7) levETIRAcetam [Levetiracetam] 1,000 mg PO BID Pantoprazole Tab [Protonix Tab] 40 mg PO DAILY Naproxen [Naprosyn Tab] 500 mg PO DAILY guaiFENesin/DM ER 600-30 [Mucinex Dm] 1 tablet PO BID Atorvastatin [Lipitor] 10 mg PO BEDTIME - Follow Up or Referral - Forms/Instructions Exam - Constitutional Vitals: Period Temp Pulse Resp BP Sys/Mcwilliams Pulse Ox Last 24 Hr 97.6 F-98.3 F 61-99 16-24 96-120/58-77 90-99 General appearance: no acute distress - Head Head exam: Present: other (craniotomy noted) - Neck Neck exam: Present: lymphadenopathy, tenderness, other - Respiratory Respiratory exam: Present: clear to auscultation bilaterally - Cardiovascular Cardiovascular exam: Present: regular rate and rhythm - GI/Abdominal GI/Abdominal exam: Present: normal bowel sounds, soft - Neurological Exam Neurological exam: Present: alert DS: Provider Date of admission: 10/06/16 19:34 Primary care physician: . No PCP Attending physician on admission: Gabino Campos MD Consults: 10/06/16 21:03 Consult to Physician [CONS] Routine Comment: left parotid swelling Consulting Provider: Meek Kirk Consulting Provider Notified: Yes When should Consulting Provider be notified: Now Person Notified: carolin called Date Notified: 10/09/16 Time Notified: 08:27 Discharging clinician: Gabino Campos MD Expected date of discharge: 10/10/16
[2016-10-10] MEDS: DEXTROAMPHETAMINE PO SCH (10:48)
[2016-10-10] MEDS: AMPHETAMINE PO SCH (10:48)
[2016-10-10] MEDS: oxyCODONE/ACETAMINOPHEN 5-325 MG TABLET PO PRN (14:14)
[2016-10-10] MEDS: AMITRIPTYLINE 10 MG TABLET PO SCH (21:05)
[2016-10-10] MEDS: ATORVASTATIN 10 MG TABLET PO SCH (21:06)
[2016-10-11] MEDS: oxyCODONE/ACETAMINOPHEN 5-325 MG TABLET PO PRN ×2 (02:57→11:33)
[2016-10-11] MEDS: ALBUTEROL 0.63 MG/3 ML NEB RESP TX SCH ×6 (03:22→23:36)
[2016-10-11] MEDS: PIPERACILLIN/TAZOBACTAM 3,375 MG in SODIUM CHLORIDE 0.9% 100 ML IV SCH ×2 (04:52→12:08)
[2016-10-11] MEDS: fentaNYL 100 MCG/2 ML VIAL IV SCH ×5 (06:49→23:21)
[2016-10-11] MEDS: guaiFENesin/DM ER 600-30 MG TABLET PO SCH ×2 (09:14→20:17)
[2016-10-11] MEDS: levETIRAcetam 500 MG TABLET PO SCH ×2 (09:14→20:16)
[2016-10-11] MEDS: PANTOPRAZOLE 40 MG TABLET PO SCH (09:15)
[2016-10-11] MEDS: METHOCARBAMOL 750 MG TABLET PO SCH ×2 (09:15→20:17)
[2016-10-11] MEDS: AMPHETAMINE PO SCH (09:15)
[2016-10-11] MEDS: DEXTROAMPHETAMINE PO SCH (09:15)
[2016-10-11] MEDS: ACYCLOVIR 200 MG CAPSULE PO SCH ×2 (09:15→20:17)
[2016-10-11] MEDS: SODIUM CHLORIDE 0.9% 1,000 ML IV SCH ×2 (12:09→12:10)
--- NOTE | 2016-10-11 16:05 | Event Note ---
The patient has been discharged to rehabilitation. We are awaiting insurance approval. Antibiotics and IV fluids have been stopped. Oley and Percocet are ordered for pain control. We'll consult physical therapy. Case discussed with the patient's and [id number] today. There have been no changes. Left neck swelling and lymphadenopathy continue. Pain on palpation. No significant redness. No discharge. Remainder of physical exam unchanged.
[2016-10-11] MEDS: AMITRIPTYLINE 10 MG TABLET PO SCH (20:17)
[2016-10-11] MEDS: ATORVASTATIN 10 MG TABLET PO SCH (20:17)
[2016-10-12] MEDS: SODIUM CHLORIDE 0.9% 1,000 ML IV SCH (00:23)
[2016-10-12] MEDS: ALBUTEROL 0.63 MG/3 ML NEB RESP TX SCH ×6 (04:16→23:59)
[2016-10-12] MEDS: fentaNYL 100 MCG/2 ML VIAL IV SCH ×5 (07:05→21:42)
--- NOTE | 2016-10-12 09:27 | Hospitalist Progress Note ---
Assessment and Plan (1) Reactive cervical lymphadenopathy Status: Acute Assessment and plan: Swelling also extends above and around the ear. There is a fluid collection in the left scalp region status post craniotomy and bone flap replacement. No fevers overnight. Continue Zosyn IV -empiric abx Aspiration was performed as well as biopsy. Results pending. No significant change in the left side of the neck Current Visit: Yes (2) Parotid swelling Status: Ruled-out Assessment and plan: This does not appear to involve the parotid gland. According to the ultrasound and interventional radiology reports this is related to lymphadenopathy. No solid masses noted.. 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 at the bedside. Awaiting insurance approval. Pain is better controlled. Exam - Constitutional Vitals: Period Temp Pulse Resp BP Sys/Mcwilliams Pulse Ox Last 24 Hr 97.8 F-99.3 F 82-112 12-20 102-132/65-81 90-100 General appearance: no acute distress - Neck Neck exam: Present: lymphadenopathy, tenderness - Respiratory Respiratory exam: Present: clear to auscultation bilaterally - Cardiovascular Cardiovascular exam: Present: regular rate and rhythm - GI/Abdominal GI/Abdominal exam: Present: normal bowel sounds, soft - Neurological Exam Neurological exam: Present: alert - Skin Skin exam: Present: normal color, warm Results - Labs CBC & BMP: 10/09/16 04:29 10/07/16 03:36 Lab Results: I have reviewed the past 24 hour labs Specialty Discharge - Follow Up or Referrals Follow up with: Meek Hendricks DO [Physician] - (Call office if needed) - Discharge Medications New oxyCODONE/ACETAMINOPHEN 5-325 [Percocet 5-325] 1 tablet PO Q6H #30 tablet Continue Acyclovir [Acyclovir Cap/Tab] 400 mg PO BID Dextroamphetamine/Amphetamine [Adderall XR] 30 mg PO AC BREAKFAST Amitriptyline [Elavil] 20 mg PO BEDTIME Loratadine [Claritin] 10 mg PO DAILY PRN PRN Reason: Allergy Symptoms Methocarbamol Tab [Robaxin Tab] 750 mg PO BID Polyethylene Glycol Powder [Miralax] 17 gm PO DAILY PRN PRN Reason: Constipation Ondansetron Tab [Zofran Tab] 4 mg PO Q6H PRN PRN Reason: Nausea/Vomiting Nitrofurantoin Macro/[place] [Macrobid] 100 mg PO BID Magnesium Hydroxide Susp [Milk of Magnesia] 30 ml PO DAILY PRN PRN Reason: Indigestion Enoxaparin Sodium 40 mg SUBCUT Q24H Alum/Mag/Simeth Max Str Liquid [Mylanta Max Strength Liquid] 30 ml PO Q6H PRN PRN Reason: Indigestion HYDROcodone/ACETAMIN 5-325 [[place] 5-325] 2 tablet PO Q6H PRN PRN Reason: Pain Ondansetron HCl/Pf [Ondansetron 4 mg/2 ml Ampule] 4 mg IJ Q6H PRN PRN Reason: Nausea/Vomiting Acetaminophen [Acetaminophen ER Tab] 650 mg PO Q6H PRN PRN Reason: Fever Hydrocodone/Acetaminophen [Hydrocodon-Acetaminophen 5-325] 1 each PO Q6H PRN #30 tablet PRN Reason: Pain Moderate (4-7) levETIRAcetam [Levetiracetam] 1,000 mg PO BID Pantoprazole Tab [Protonix Tab] 40 mg PO DAILY Naproxen [Naprosyn Tab] 500 mg PO DAILY guaiFENesin/DM ER 600-30 [Mucinex Dm] 1 tablet PO BID Atorvastatin [Lipitor] 10 mg PO BEDTIME
[2016-10-12] MEDS: METHOCARBAMOL 750 MG TABLET PO SCH ×2 (10:41→20:53)
[2016-10-12] MEDS: PANTOPRAZOLE 40 MG TABLET PO SCH (10:41)
[2016-10-12] MEDS: levETIRAcetam 500 MG TABLET PO SCH ×2 (10:41→20:41)
[2016-10-12] MEDS: guaiFENesin/DM ER 600-30 MG TABLET PO SCH ×2 (10:41→20:41)
[2016-10-12] MEDS: AMPHETAMINE PO SCH (10:42)
[2016-10-12] MEDS: DEXTROAMPHETAMINE PO SCH (10:42)
[2016-10-12] MEDS: ACYCLOVIR 200 MG CAPSULE PO SCH ×2 (10:42→20:40)
[2016-10-12] MEDS: oxyCODONE/ACETAMINOPHEN 5-325 MG TABLET PO PRN (10:46)
[2016-10-12] MEDS: ATORVASTATIN 10 MG TABLET PO SCH (20:41)
[2016-10-12] MEDS: AMITRIPTYLINE 10 MG TABLET PO SCH (20:41)
[2016-10-13] MEDS: oxyCODONE/ACETAMINOPHEN 5-325 MG TABLET PO PRN (00:38)
[2016-10-13] MEDS: ALBUTEROL 0.63 MG/3 ML NEB RESP TX SCH ×5 (03:29→19:53)
[2016-10-13] MEDS: fentaNYL 100 MCG/2 ML VIAL IV SCH ×5 (05:41→23:51)
[2016-10-13] MEDS: ACYCLOVIR 200 MG CAPSULE PO SCH ×2 (08:06→21:10)
[2016-10-13] MEDS: levETIRAcetam 500 MG TABLET PO SCH ×2 (08:06→21:10)
[2016-10-13] MEDS: guaiFENesin/DM ER 600-30 MG TABLET PO SCH ×2 (08:06→21:10)
[2016-10-13] MEDS: DEXTROAMPHETAMINE PO SCH (08:07)
[2016-10-13] MEDS: METHOCARBAMOL 750 MG TABLET PO SCH ×2 (08:07→21:15)
[2016-10-13] MEDS: AMPHETAMINE PO SCH (08:07)
[2016-10-13] MEDS: PANTOPRAZOLE 40 MG TABLET PO SCH (08:07)
--- NOTE | 2016-10-13 09:17 | Pathology Report from [facility] ---
ACCESSION # : [id number] PATIENT NAME : Awilda Goddard ORDERING DR : KANCHAN GONZALEZ MD CLINICAL HX: Lymphadenopathy POST-OP DX: Same SPECIMEN INFO: Left neck mass sent for flow and permanent sections GROSS DESCRIPTION: #1 & #2 Received labeled with the patient's name "AWILDA GODDARD and LT NECK MASS BX" consists of multiple red-rivera tissue fragments measuring from 0.1 cm to 1.0 x 0.1 cm. Submitted for flow and permanent sections. 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 The integrity of the sample is suitable for analysis. B-cells are rare. There is no evidence of a monotypic B -cell population. T-cells show normal antigen expression, and the CD4:CD8 ratio is normal. NK-cells and plasma cells are not increased. There are ~94% non-lymphoid cells. A non-lymphoid neoplasm cannot be excluded. Correlation with all clinical data, morphology, and ancillary studies is recommended for complete evaluation. These results are interpreted with caution due to reduced viability of the specimen. SERVICE DATE: 10/08/2016 REPORT DATE: 10/11/2016 PATHOLOGIST: Frankie Fox III, M.D. MTDD
--- NOTE | 2016-10-13 11:29 | Hospitalist Progress Note ---
Assessment and Plan (1) Reactive cervical lymphadenopathy Status: Acute Assessment and plan: Swelling also extends above and around the ear. There is a fluid collection in the left scalp region status post craniotomy and bone flap replacement. No fevers overnight. Aspiration was performed as well as biopsy. No significant change in the left side of the neck. Follow up Needle biopsy results. Current Visit: Yes (2) Parotid swelling Status: Ruled-out Assessment and plan: This does not appear to involve the parotid gland. According to the ultrasound and interventional radiology reports this is related to lymphadenopathy. No solid masses noted.. 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 at the bedside. patients awaiting insurance approval for return to rehab. Exam - Constitutional Vitals: Period Temp Pulse Resp BP Sys/Mcwilliams Pulse Ox Last 24 Hr 97.1 F-100.3 F 76-129 18-24 97-119/57-78 90-99 General appearance: no acute distress - Head Head exam: Present: other (s/p craniotomy) - Neck Neck exam: Present: lymphadenopathy, tenderness - Respiratory Respiratory exam: Present: clear to auscultation bilaterally - Cardiovascular Cardiovascular exam: Present: regular rate and rhythm - GI/Abdominal GI/Abdominal exam: Present: normal bowel sounds, soft. Absent: tenderness, rebound - Neurological Exam Neurological exam: Present: alert - Skin Skin exam: Present: normal color, warm, dry Results - Labs CBC & BMP: 10/09/16 04:29 10/07/16 03:36 Lab Results: I have reviewed the past 24 hour labs Specialty Discharge - Follow Up or Referrals Follow up with: Meek Hendricks DO [Physician] - (Call office if needed) - Discharge Medications New oxyCODONE/ACETAMINOPHEN 5-325 [Percocet 5-325] 1 tablet PO Q6H #30 tablet Continue Acyclovir [Acyclovir Cap/Tab] 400 mg PO BID Dextroamphetamine/Amphetamine [Adderall XR] 30 mg PO AC BREAKFAST Amitriptyline [Elavil] 20 mg PO BEDTIME Loratadine [Claritin] 10 mg PO DAILY PRN PRN Reason: Allergy Symptoms Methocarbamol Tab [Robaxin Tab] 750 mg PO BID Polyethylene Glycol Powder [Miralax] 17 gm PO DAILY PRN PRN Reason: Constipation Ondansetron Tab [Zofran Tab] 4 mg PO Q6H PRN PRN Reason: Nausea/Vomiting Nitrofurantoin Macro/[place] [Macrobid] 100 mg PO BID Magnesium Hydroxide Susp [Milk of Magnesia] 30 ml PO DAILY PRN PRN Reason: Indigestion Enoxaparin Sodium 40 mg SUBCUT Q24H Alum/Mag/[place] Max Str Liquid [Mylanta Max Strength Liquid] 30 ml PO Q6H PRN PRN Reason: Indigestion HYDROcodone/ACETAMIN 5-325 [[place] 5-325] 2 tablet PO Q6H PRN PRN Reason: Pain Ondansetron HCl/Pf [Ondansetron 4 mg/2 ml Ampule] 4 mg IJ Q6H PRN PRN Reason: Nausea/Vomiting Acetaminophen [Acetaminophen ER Tab] 650 mg PO Q6H PRN PRN Reason: Fever Hydrocodone/Acetaminophen [Hydrocodon-Acetaminophen 5-325] 1 each PO Q6H PRN #30 tablet PRN Reason: Pain Moderate (4-7) levETIRAcetam [Levetiracetam] 1,000 mg PO BID Pantoprazole Tab [Protonix Tab] 40 mg PO DAILY Naproxen [Naprosyn Tab] 500 mg PO DAILY guaiFENesin/DM ER 600-30 [Mucinex Dm] 1 tablet PO BID Atorvastatin [Lipitor] 10 mg PO BEDTIME
[2016-10-13] MEDS: AMITRIPTYLINE 10 MG TABLET PO SCH (21:09)
[2016-10-13] MEDS: ATORVASTATIN 10 MG TABLET PO SCH (21:10)
[2016-10-14] MEDS: ALBUTEROL 0.63 MG/3 ML NEB RESP TX SCH ×6 (00:23→19:45)
[2016-10-14] MEDS: fentaNYL 100 MCG/2 ML VIAL IV SCH ×5 (06:24→22:47)
[2016-10-14] MEDS: ACYCLOVIR 200 MG CAPSULE PO SCH ×2 (09:41→22:37)
[2016-10-14] MEDS: PANTOPRAZOLE 40 MG TABLET PO SCH (09:42)
[2016-10-14] MEDS: guaiFENesin/DM ER 600-30 MG TABLET PO SCH ×2 (09:42→22:39)
[2016-10-14] MEDS: AMPHETAMINE PO SCH (09:42)
[2016-10-14] MEDS: levETIRAcetam 500 MG TABLET PO SCH ×2 (09:42→22:38)
[2016-10-14] MEDS: METHOCARBAMOL 750 MG TABLET PO SCH ×2 (09:42→22:37)
[2016-10-14] MEDS: DEXTROAMPHETAMINE PO SCH (09:42)
--- NOTE | 2016-10-14 10:13 | Hospitalist Progress Note ---
Assessment and Plan (1) Reactive cervical lymphadenopathy Status: Acute Assessment and plan: Swelling also extends above and around the ear. There is a fluid collection in the left scalp region status post craniotomy and bone flap replacement. No fevers overnight. Aspiration was performed as well as biopsy. No significant change in the left side of the neck. Needle biopsy results reviewed with pathology and ENT. Plan for further exploration and sampling to obtain bigger/better specimen for further testing. Planned for Friday this week. 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 Case discussed with her by phone and family members at the bedside. I also discussed the case with ENT and the pathologist. The patient has abnormal cells on the fine-needle aspiration that was performed. Recommendations are made for further exploration and excision of the symptomatic lymph nodes to ensure no malignant process. This is currently planned for Friday. If the patient is accepted to rehabilitation, she may return for outpatient surgery according to the ENT. Exam - Constitutional Vitals: Period Temp Pulse Resp BP Sys/Mcwilliams Pulse Ox Last 24 Hr 97.7 F-99.3 F 84-119 18-25 97-114/57-78 90-99 General appearance: no acute distress - Neck Neck exam: Present: lymphadenopathy, tenderness - Respiratory Respiratory exam: Present: clear to auscultation bilaterally - Cardiovascular Cardiovascular exam: Present: regular rate and rhythm - GI/Abdominal GI/Abdominal exam: Present: normal bowel sounds, soft - Extremities Exam Extremities exam: Absent: edema - Neurological Exam Neurological exam: Present: alert - Skin Skin exam: Present: normal color, warm Results - Labs CBC & BMP: 10/09/16 04:29 10/07/16 03:36 Lab Results: I have reviewed the past 24 hour labs Specialty Discharge - Follow Up or Referrals Follow up with: Meek Hendricks DO [Physician] - (Call office if needed) - Discharge Medications New oxyCODONE/ACETAMINOPHEN 5-325 [Percocet 5-325] 1 tablet PO Q6H #30 tablet Continue Acyclovir [Acyclovir Cap/Tab] 400 mg PO BID Dextroamphetamine/Amphetamine [Adderall XR] 30 mg PO AC BREAKFAST Amitriptyline [Elavil] 20 mg PO BEDTIME Loratadine [Claritin] 10 mg PO DAILY PRN PRN Reason: Allergy Symptoms Methocarbamol Tab [Robaxin Tab] 750 mg PO BID Polyethylene Glycol Powder [Miralax] 17 gm PO DAILY PRN PRN Reason: Constipation Ondansetron Tab [Zofran Tab] 4 mg PO Q6H PRN PRN Reason: Nausea/Vomiting Nitrofurantoin Macro/[place] [Macrobid] 100 mg PO BID Magnesium Hydroxide Susp [Milk of Magnesia] 30 ml PO DAILY PRN PRN Reason: Indigestion Enoxaparin Sodium 40 mg SUBCUT Q24H Alum/Mag/[place] Max Str Liquid [Mylanta Max Strength Liquid] 30 ml PO Q6H PRN PRN Reason: Indigestion HYDROcodone/ACETAMIN 5-325 [[place] 5-325] 2 tablet PO Q6H PRN PRN Reason: Pain Ondansetron HCl/Pf [Ondansetron 4 mg/2 ml Ampule] 4 mg IJ Q6H PRN PRN Reason: Nausea/Vomiting Acetaminophen [Acetaminophen ER Tab] 650 mg PO Q6H PRN PRN Reason: Fever Hydrocodone/Acetaminophen [Hydrocodon-Acetaminophen 5-325] 1 each PO Q6H PRN #30 tablet PRN Reason: Pain Moderate (4-7) levETIRAcetam [Levetiracetam] 1,000 mg PO BID Pantoprazole Tab [Protonix Tab] 40 mg PO DAILY Naproxen [Naprosyn Tab] 500 mg PO DAILY guaiFENesin/DM ER 600-30 [Mucinex Dm] 1 tablet PO BID Atorvastatin [Lipitor] 10 mg PO BEDTIME
[2016-10-14] MEDS: oxyCODONE/ACETAMINOPHEN 5-325 MG TABLET PO PRN ×2 (16:31→23:47)
--- NOTE | 2016-10-14 17:16 | Consultation ---
Assessment and Plan (1) Reactive cervical lymphadenopathy Status: Acute Assessment and plan: I recommend confirmation with ultrasound-guided needle biopsy if possible and I recommend interventional radiology consultation for this. I do feel strongly this is just reactive cervical lymphadenopathy and I would recommend to move forward with massage physical therapy range of motion exercises and other lymphatic drainage techniques to improve this reactive cervical lymphadenopathy. I demonstrated some of the different options and treatment techniques with nursing and discussed the if it appears this is too painful for the patient she may be dosed with 50 g of fentanyl IV if that is cleared and okay with primary care physician prior to lymphatic drainage techniques. Thank you very much for this consult I will follow this patient intermittently I will be away from the hospital the rest of the day on 10/07/2016 but we will continue to follow this patient intermittently to watch for ultrasound guided needle biopsy results. 10/14/2016 Because of the conflicting cytology versus pathology results are recommend an open biopsy versus potentially a core biopsy under ultrasound guidance for interventional radiology. Open biopsy may be difficult because of the diffuse cervical lymphadenitis and cellulitis but would be an option. I still feel strongly this is reactive cervical lymphadenopathy. If she is still present in the hospital will expect to perform 1 of the above on either Friday. Thank you very much for this consultation. Current Visit: Yes (2) Cervicalgia Status: Acute Current Visit: Yes (3) CVA (cerebral vascular accident) Status: Chronic Current Visit: No History of Present Illness - Data of Consult Patient: new to practice Consult date: 10/14/16 - Consult Narrative Reason for consult: Left cervical lymphadenopathy with differing pathology versus cytology History of present illness: Ms. Goddard is a 51 year old female with left-sided tender cervical lymphadenopathy secondary cervical cellulitis and tenderness. A fine-needle aspiration was performed and cytology was positive for lymphoma but pathology did not reveal anything concerning lymphoma. ENT was asked to reevaluate options for the patient. She has clinically improved but has a multitude of underlying medical comorbidities including multiple left-sided operations secondary to CVA and secondary craniotomy and recent replacement of a bone flap. All of these can contribute to her left-sided cervical reactive lymphadenitis which is the most likely cause for this but there may be an underlying pathologic process. CC: Gabino Campos MD - Home Medications and Allergies Home Medications: Home Medications Medication Instructions Recorded Confirmed Type Acyclovir [Acyclovir Cap/Tab] 400 mg PO BID 03/17/15 10/06/16 History Amitriptyline [Elavil] 20 mg PO BEDTIME 03/17/15 10/06/16 History Dextroamphetamine/Amphetamine 30 mg PO AC BREAKFAST 03/17/15 10/06/16 History [Adderall XR] Loratadine [Claritin] 10 mg PO DAILY PRN 03/17/15 10/06/16 History Methocarbamol Tab [Robaxin Tab] 750 mg PO BID 03/17/15 10/06/16 History Atorvastatin [Lipitor] 10 mg PO BEDTIME 09/18/16 10/06/16 History Naproxen [Naprosyn Tab] 500 mg PO DAILY 09/18/16 10/06/16 History Pantoprazole Tab [Protonix Tab] 40 mg PO DAILY 09/18/16 10/06/16 History guaiFENesin/DM ER 600-30 [Mucinex 1 tablet PO BID 09/18/16 10/06/16 History Dm] levETIRAcetam [Levetiracetam] 1,000 mg PO BID 09/18/16 10/06/16 History Acetaminophen [Acetaminophen ER 650 mg PO Q6H PRN 10/06/16 10/06/16 History Tab] Alum/Mag/Simeth Max Str Liquid 30 ml PO Q6H PRN 10/06/16 10/06/16 History [Mylanta Max Strength Liquid] Enoxaparin Sodium 40 mg SUBCUT Q24H 10/06/16 10/06/16 History HYDROcodone/ACETAMIN 5-325 [[place] 2 tablet PO Q6H PRN 10/06/16 10/06/16 History 5-325] Magnesium Hydroxide Susp [Milk of 30 ml PO DAILY PRN 10/06/16 10/06/16 History Magnesia] Nitrofurantoin Macro/[place] 100 mg PO BID 10/06/16 10/06/16 History [Macrobid] Ondansetron HCl/Pf [Ondansetron 4 4 mg IJ Q6H PRN 10/06/16 10/06/16 History mg/2 ml Ampule] Ondansetron Tab [Zofran Tab] 4 mg PO Q6H PRN 10/06/16 10/06/16 History Polyethylene Glycol Powder 17 gm PO DAILY PRN 10/06/16 10/06/16 History [Miralax] Hydrocodone/Acetaminophen 1 each PO Q6H PRN #30 tablet 10/10/16 Rx [Hydrocodon-Acetaminophen 5-325] oxyCODONE/ACETAMINOPHEN 5-325 1 tablet PO Q6H #30 tablet 10/10/16 Rx [Percocet 5-325] Allergies/Adverse Reactions: Allergies Allergy/AdvReac Type Severity Reaction Status Date / Time No Known Allergies Allergy Verified 03/17/15 13:59 ROS unobtainable: due to mental status Medical,Surgical,& Family Hx - Medical History Cardio: History of: Hypertension (in the past. not taking meds at present) Psychological: History of: ADHD, Depression Neurology: History of: Cerebral Hemorrhage (disection), Cerebrovascular Accident (February 2016), Migraine, Seizures (after stroke in hospital), TIA ( possible in past?) No history of: Cerebral Palsy, Dementia, Parkinson's Disease, Peripheral Neuropathy, Vertigo, Neurologocal Cancer HEENT: History of: HEENT Problems (old trach. just d/c'd in september 2016) Rheumatology: History of;: Fibromyalgia Respiratory: History of: Intubation, Pneumonia Genitourinary: History of: Recurring Urinary Tract Infections Gastrointestinal: History of: GI Problems (Lactose intolerant) Musculoskeletal: History of: Musculoskeletal Problems (spondylosis. right side paralysis) Other: History of: Miscellaneous Medical Problems (narcolepsy) - Surgical History Cardiac Surgeries: Sugical HX of: Cardiac Catheterization (x2 (all negative)) Neurologic Surgeries: Surgical HX of: Cerebral Hemorrhage (disection), Neurologic Surgery (crainiotomy) Abdominal Surgeries: Surgical HX of: Abdominal Surgery (old peg. but does not use anymore) Reproductive Surgeries: Surgical HX of;: Gynecologic Surgery, Hysterectomy Patient denies;: Genitourinary Surgery - Family History Family History: Reports;: Family Cancer (mother), Family Diabetes (FATHER), Family Heart Disease (father and brother), Family Hypertension (MOTHER AND FATHER), Family Stroke (father) - Social History Smoking Status: Former smoker Frequency of Alcohol Use: None Type of Drug Use: None Exam - Constitutional Vitals: Period Temp Pulse Resp BP Sys/Mcwilliams Pulse Ox Last 24 Hr 98.4 F-98.6 F 84-119 18-25 97-114/68-78 90-99 General appearance: mild distress, over weight - Head Head exam: Present: other (Well-healing left-sided bone flap incision with continued swelling consistent with her previous surgeries.) - ENT ENT exam: Present: normal exam, normal external ear exam, normal oropharynx - Neck Neck exam: Present: lymphadenopathy, tenderness, other (I recommend a open excisional biopsy versus a core biopsy under ultrasound guidance per interventional radiology I will try to ask interventional radiology and evaluate as to their recommendations. She has such extensive swelling that an open biopsy is possible but may not be prudent and may not yield the lymphadenopathy results needed.) - GI/Abdominal GI/Abdominal exam: Present: soft - Extremities Exam Extremities exam: Present: normal inspection, normal capillary refill - Neurological Exam Neurological exam: Present: altered - Psychiatric Psychiatric exam: Present: other - Skin Skin exam: Present: normal color, warm Results - Labs CBC & BMP: 10/09/16 04:29 10/07/16 03:36 Lab Results: I have reviewed the past 24 hour labs Specialty Discharge - Follow Up or Referrals Follow up with: Meek Hendricks DO [Physician] - (Call office if needed) - Discharge Medications New oxyCODONE/ACETAMINOPHEN 5-325 [Percocet 5-325] 1 tablet PO Q6H #30 tablet Continue Acyclovir [Acyclovir Cap/Tab] 400 mg PO BID Dextroamphetamine/Amphetamine [Adderall XR] 30 mg PO AC BREAKFAST Amitriptyline [Elavil] 20 mg PO BEDTIME Loratadine [Claritin] 10 mg PO DAILY PRN PRN Reason: Allergy Symptoms Methocarbamol Tab [Robaxin Tab] 750 mg PO BID Polyethylene Glycol Powder [Miralax] 17 gm PO DAILY PRN PRN Reason: Constipation Ondansetron Tab [Zofran Tab] 4 mg PO Q6H PRN PRN Reason: Nausea/Vomiting Nitrofurantoin Macro/[place] [Macrobid] 100 mg PO BID Magnesium Hydroxide Susp [Milk of Magnesia] 30 ml PO DAILY PRN PRN Reason: Indigestion Enoxaparin Sodium 40 mg SUBCUT Q24H Alum/Mag/[place] Max Str Liquid [Mylanta Max Strength Liquid] 30 ml PO Q6H PRN PRN Reason: Indigestion HYDROcodone/ACETAMIN 5-325 [[place] 5-325] 2 tablet PO Q6H PRN PRN Reason: Pain Ondansetron HCl/Pf [Ondansetron 4 mg/2 ml Ampule] 4 mg IJ Q6H PRN PRN Reason: Nausea/Vomiting Acetaminophen [Acetaminophen ER Tab] 650 mg PO Q6H PRN PRN Reason: Fever Hydrocodone/Acetaminophen [Hydrocodon-Acetaminophen 5-325] 1 each PO Q6H PRN #30 tablet PRN Reason: Pain Moderate (4-7) levETIRAcetam [Levetiracetam] 1,000 mg PO BID Pantoprazole Tab [Protonix Tab] 40 mg PO DAILY Naproxen [Naprosyn Tab] 500 mg PO DAILY guaiFENesin/DM ER 600-30 [Mucinex Dm] 1 tablet PO BID Atorvastatin [Lipitor] 10 mg PO BEDTIME
[2016-10-14] MEDS: AMITRIPTYLINE 10 MG TABLET PO SCH (22:38)
[2016-10-14] MEDS: ATORVASTATIN 10 MG TABLET PO SCH (22:38)
[2016-10-15] MEDS: ALBUTEROL 0.63 MG/3 ML NEB RESP TX SCH ×6 (00:57→20:51)
[2016-10-15] MEDS: fentaNYL 100 MCG/2 ML VIAL IV SCH ×5 (05:44→22:49)
[2016-10-15 06:20] LABS: Basophils # 0.1 10*3/uL (0.0-0.2); Basophils % 0.8 % (0.0-0.8); Eosinophils # 0.3 10*3/uL (0.0-0.87); Eosinophils % 4.3 % (0.00-10.9); Hematocrit 33.2 VOL% (35.7-47.0); Hemoglobin 9.9 GM/DL (12.0-16.0); Immature Granulocytes % 0.3 %; Immature Granulocytes Absolute 0.02 #; Lymphocytes # 1.8 10*3/uL (1.4-4.0); Lymphocytes % 22.7 % (21.3-54.2); Mean Corpuscular HGB Conc 29.8 GM/DL (32-36); Mean Corpuscular Hemoglobin 26 PG (27-34); Mean Corpuscular Volume 88.1 FL (87-102); Mean Platelet Volume 10.2 FL (9.6-12.0); Monocytes # 0.9 10*3/uL (0.11-0.8); Monocytes % 11.1 % (1.7-12.7); Neutrophils # 4.8 10*3/uL (1.4-7.4); Neutrophils % 60.8 % (38.7-73.9); Platelet Count 411 10*3/uL (130-400); Red Blood Count 3.77 10*6/uL (3.8-5.5); Red Cell Distribution Width 15.1 % (9.3-17.3); White Blood Count 7.9 10*3/uL (4.5-13.71)
[2016-10-15 06:34] LABS: PT Patient Result 10.7 SECS
[2016-10-15 07:00] LABS: Magnesium 2.1 MG/DL (1.8-2.4); Osmolality,Calculated 280.1 MOS/KG (273-304); Potassium 4.1 MMOL/L (3.5-5.1)
[2016-10-15 08:33] LABS: Sedimentation Rate-Westergren 107 MM/HR (0-30)
[2016-10-15] MEDS: DEXTROAMPHETAMINE PO SCH (09:43)
[2016-10-15] MEDS: AMPHETAMINE PO SCH (09:43)
[2016-10-15] MEDS: ACYCLOVIR 200 MG CAPSULE PO SCH ×2 (09:44→21:12)
[2016-10-15] MEDS: levETIRAcetam 500 MG TABLET PO SCH ×2 (09:44→21:12)
[2016-10-15] MEDS: PANTOPRAZOLE 40 MG TABLET PO SCH (09:44)
[2016-10-15] MEDS: METHOCARBAMOL 750 MG TABLET PO SCH ×2 (09:44→21:12)
[2016-10-15] MEDS: guaiFENesin/DM ER 600-30 MG TABLET PO SCH ×2 (09:44→21:12)
--- NOTE | 2016-10-15 14:31 | Hospitalist Progress Note ---
Assessment and Plan (1) Reactive cervical lymphadenopathy Status: Acute Assessment and plan: Swelling also extends above and around the ear. There is a fluid collection in the left scalp region status post craniotomy and bone flap replacement. No fevers overnight. Aspiration was performed as well as biopsy. No significant change in the left side of the neck. Needle biopsy results reviewed with pathology and ENT. Plan for further exploration and sampling to obtain bigger/better specimen for further testing. Planned for Friday this week. 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 Case discussed with Dr. Hendricks and patients family at the bedside. Plan for surgery tomorrow. Exam - Constitutional Vitals: Period Temp Pulse Resp BP Sys/Mcwilliams Pulse Ox Last 24 Hr 96.5 F-98.1 F 63-103 18-20 86-111/52-76 91-100 General appearance: no acute distress - Neck Neck exam: Present: lymphadenopathy, tenderness - Respiratory Respiratory exam: Present: clear to auscultation bilaterally - Cardiovascular Cardiovascular exam: Present: regular rate and rhythm - GI/Abdominal GI/Abdominal exam: Present: normal bowel sounds - Neurological Exam Neurological exam: Present: alert - Skin Skin exam: Present: normal color, warm Results - Labs CBC & BMP: 10/15/16 05:18 10/15/16 05:18 Lab Results: I have reviewed the past 24 hour labs Specialty Discharge - Follow Up or Referrals Follow up with: Meek Hendricks DO [Physician] - (Call office if needed) - Discharge Medications New oxyCODONE/ACETAMINOPHEN 5-325 [Percocet 5-325] 1 tablet PO Q6H #30 tablet Continue Acyclovir [Acyclovir Cap/Tab] 400 mg PO BID Dextroamphetamine/Amphetamine [Adderall XR] 30 mg PO AC BREAKFAST Amitriptyline [Elavil] 20 mg PO BEDTIME Loratadine [Claritin] 10 mg PO DAILY PRN PRN Reason: Allergy Symptoms Methocarbamol Tab [Robaxin Tab] 750 mg PO BID Polyethylene Glycol Powder [Miralax] 17 gm PO DAILY PRN PRN Reason: Constipation Ondansetron Tab [Zofran Tab] 4 mg PO Q6H PRN PRN Reason: Nausea/Vomiting Nitrofurantoin Macro/[place] [Macrobid] 100 mg PO BID Magnesium Hydroxide Susp [Milk of Magnesia] 30 ml PO DAILY PRN PRN Reason: Indigestion Enoxaparin Sodium 40 mg SUBCUT Q24H Alum/Mag/[place] Max Str Liquid [Mylanta Max Strength Liquid] 30 ml PO Q6H PRN PRN Reason: Indigestion HYDROcodone/ACETAMIN 5-325 [[place] 5-325] 2 tablet PO Q6H PRN PRN Reason: Pain Ondansetron HCl/Pf [Ondansetron 4 mg/2 ml Ampule] 4 mg IJ Q6H PRN PRN Reason: Nausea/Vomiting Acetaminophen [Acetaminophen ER Tab] 650 mg PO Q6H PRN PRN Reason: Fever Hydrocodone/Acetaminophen [Hydrocodon-Acetaminophen 5-325] 1 each PO Q6H PRN #30 tablet PRN Reason: Pain Moderate (4-7) levETIRAcetam [Levetiracetam] 1,000 mg PO BID Pantoprazole Tab [Protonix Tab] 40 mg PO DAILY Naproxen [Naprosyn Tab] 500 mg PO DAILY guaiFENesin/DM ER 600-30 [Mucinex Dm] 1 tablet PO BID Atorvastatin [Lipitor] 10 mg PO BEDTIME
--- NOTE | 2016-10-15 16:44 | Progress Note ---
Assessment and Plan - Time spent with patient Time spent with patient: Greater than 30 minutes (1) Reactive cervical lymphadenopathy Status: Acute Assessment and plan: I recommend confirmation with ultrasound-guided needle biopsy if possible and I recommend interventional radiology consultation for this. I do feel strongly this is just reactive cervical lymphadenopathy and I would recommend to move forward with massage physical therapy range of motion exercises and other lymphatic drainage techniques to improve this reactive cervical lymphadenopathy. I demonstrated some of the different options and treatment techniques with nursing and discussed the if it appears this is too painful for the patient she may be dosed with 50 g of fentanyl IV if that is cleared and okay with primary care physician prior to lymphatic drainage techniques. Thank you very much for this consult I will follow this patient intermittently I will be away from the hospital the rest of the day on 10/07/2016 but we will continue to follow this patient intermittently to watch for ultrasound guided needle biopsy results. 10/14/2016 Because of the conflicting cytology versus pathology results are recommend an open biopsy versus potentially a core biopsy under ultrasound guidance for interventional radiology. Open biopsy may be difficult because of the diffuse cervical lymphadenitis and cellulitis but would be an option. I still feel strongly this is reactive cervical lymphadenopathy. If she is still present in the hospital will expect to perform 1 of the above on either Friday. Thank you very much for this consultation. 10/15/2016. I recommend moving forward with open excisional biopsy of deep neck/jugular lymph adenopathy and neck ultrasound which will be performed for localization of lymphadenopathy prior to surgery. Risks and benefits were discussed and the patient's and family desired to proceed with surgery. Current Visit: Yes (2) Cervicalgia Status: Acute Current Visit: Yes (3) CVA (cerebral vascular accident) Status: Chronic Current Visit: No Family Medicine PN Sub Interval history: After speaking with interventional radiology the biopsies obtained for cord and large-bore and there were no other options except for to move to an open biopsy. No improvement since yesterday and spoke with regards they desired to proceed with open biopsy. Exam (Progress Note) - Constitutional Vitals: Period Temp Pulse Resp BP Sys/Mcwilliams Pulse Ox Last 24 Hr 96.5 F-98.1 F 63-103 18-20 86-111/52-76 91-100 General appearance: no acute distress, over weight - Head Head exam: Present: other (status post CVA with craniotomy and recently replaced bone flap.) - ENT ENT exam: Present: normal exam, normal oropharynx - Neck Neck exam: Present: lymphadenopathy, tenderness, other (gross tenderness and cellulitis along with reactive lymphadenitis) - GI/Abdominal GI/Abdominal exam: Present: soft - Extremities Exam Extremities exam: Present: normal inspection, normal capillary refill - Neurological Exam Neurological exam: Present: altered - Psychiatric Psychiatric exam: Present: flat affect, other (secondary to multiple CVAs this is her baseline affect) - Skin Skin exam: Present: normal color, warm Results - Labs CBC & BMP: 10/15/16 05:18 10/15/16 05:18 Lab Results: I have reviewed the past 24 hour labs Specialty Discharge - Follow Up or Referrals Follow up with: Meek Hendricks DO [Physician] - (Call office if needed) - Discharge Medications New oxyCODONE/ACETAMINOPHEN 5-325 [Percocet 5-325] 1 tablet PO Q6H #30 tablet Continue Acyclovir [Acyclovir Cap/Tab] 400 mg PO BID Dextroamphetamine/Amphetamine [Adderall XR] 30 mg PO AC BREAKFAST Amitriptyline [Elavil] 20 mg PO BEDTIME Loratadine [Claritin] 10 mg PO DAILY PRN PRN Reason: Allergy Symptoms Methocarbamol Tab [Robaxin Tab] 750 mg PO BID Polyethylene Glycol Powder [Miralax] 17 gm PO DAILY PRN PRN Reason: Constipation Ondansetron Tab [Zofran Tab] 4 mg PO Q6H PRN PRN Reason: Nausea/Vomiting Nitrofurantoin Macro/[place] [Macrobid] 100 mg PO BID Magnesium Hydroxide Susp [Milk of Magnesia] 30 ml PO DAILY PRN PRN Reason: Indigestion Enoxaparin Sodium 40 mg SUBCUT Q24H Alum/Mag/Simeth Max Str Liquid [Mylanta Max Strength Liquid] 30 ml PO Q6H PRN PRN Reason: Indigestion HYDROcodone/ACETAMIN 5-325 [[place] 5-325] 2 tablet PO Q6H PRN PRN Reason: Pain Ondansetron HCl/Pf [Ondansetron 4 mg/2 ml Ampule] 4 mg IJ Q6H PRN PRN Reason: Nausea/Vomiting Acetaminophen [Acetaminophen ER Tab] 650 mg PO Q6H PRN PRN Reason: Fever Hydrocodone/Acetaminophen [Hydrocodon-Acetaminophen 5-325] 1 each PO Q6H PRN #30 tablet PRN Reason: Pain Moderate (4-7) levETIRAcetam [Levetiracetam] 1,000 mg PO BID Pantoprazole Tab [Protonix Tab] 40 mg PO DAILY Naproxen [Naprosyn Tab] 500 mg PO DAILY guaiFENesin/DM ER 600-30 [Mucinex Dm] 1 tablet PO BID Atorvastatin [Lipitor] 10 mg PO BEDTIME
[2016-10-15] MEDS: oxyCODONE/ACETAMINOPHEN 5-325 MG TABLET PO PRN (17:58)
[2016-10-15] MEDS: AMITRIPTYLINE 10 MG TABLET PO SCH (21:12)
[2016-10-15] MEDS: ATORVASTATIN 10 MG TABLET PO SCH (21:12)
[2016-10-16] MEDS: ALBUTEROL 0.63 MG/3 ML NEB RESP TX SCH ×7 (00:25→23:44)
[2016-10-16] MEDS: oxyCODONE/ACETAMINOPHEN 5-325 MG TABLET PO PRN ×4 (01:47→22:58)
[2016-10-16] MEDS: PANTOPRAZOLE 40 MG TABLET PO SCH (09:36)
[2016-10-16] MEDS: DEXTROAMPHETAMINE PO SCH (09:36)
[2016-10-16] MEDS: AMPHETAMINE PO SCH (09:36)
[2016-10-16] MEDS: levETIRAcetam 500 MG TABLET PO SCH ×2 (09:36→21:51)
[2016-10-16] MEDS: METHOCARBAMOL 750 MG TABLET PO SCH ×2 (09:36→21:51)
[2016-10-16] MEDS: ACYCLOVIR 200 MG CAPSULE PO SCH ×2 (09:36→21:50)
[2016-10-16] MEDS: guaiFENesin/DM ER 600-30 MG TABLET PO SCH ×2 (09:36→21:51)
[2016-10-16] MEDS: fentaNYL 100 MCG/2 ML VIAL IV SCH ×5 (10:27→22:00)
--- NOTE | 2016-10-16 13:28 | EKG Report ---
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
[2016-10-16] MEDS ORDERED: PROPOFOL 200 MG/20 ML VIAL IV ONE (13:46)
[2016-10-16] MEDS ORDERED: ONDANSETRON 4 MG/2 ML VIAL ONE (13:46)
[2016-10-16] MEDS ORDERED: LIDOCAINE 1% 5 ML VIAL ONE (13:46)
[2016-10-16] MEDS ORDERED: ROCURONIUM 100 MG/10 ML VIAL IV ONE (13:46)
--- NOTE | 2016-10-16 14:37 | Hospitalist Progress Note ---
Assessment and Plan (1) Reactive cervical lymphadenopathy Status: Acute Assessment and plan: Swelling also extends above and around the ear. There is a fluid collection in the left scalp region status post craniotomy and bone flap replacement. No fevers overnight. Aspiration was performed as well as biopsy. No significant change in the left side of the neck. Needle biopsy results reviewed with pathology and ENT. Plan for further exploration and sampling to obtain bigger/better specimen for further testing. Planned for today. 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 No acute events overnight. Plan for operating room today for examination of lymphadenopathy and repeat sampling and biopsy. Exam - Constitutional Vitals: Period Temp Pulse Resp BP Sys/Mcwilliams Pulse Ox Last 24 Hr 97.7 F-99.3 F 77-123 17-20 103-110/59-71 91-100 General appearance: no acute distress - Neck Neck exam: Present: lymphadenopathy, tenderness - Respiratory Respiratory exam: Present: clear to auscultation bilaterally - Cardiovascular Cardiovascular exam: Present: regular rate and rhythm - GI/Abdominal GI/Abdominal exam: Present: normal bowel sounds, soft. Absent: tenderness, rebound - Extremities Exam Extremities exam: Absent: edema - Neurological Exam Neurological exam: Present: alert - Skin Skin exam: Present: normal color, warm, dry Results - Labs CBC & BMP: 10/15/16 05:18 10/15/16 05:18 Lab Results: I have reviewed the past 24 hour labs Specialty Discharge - Follow Up or Referrals Follow up with: Meek Hendricks DO [Physician] - (Call office if needed)
[2016-10-16] MEDS ORDERED: SEVOFLURANE 1 UNIT/15 MINUTE INH ONE (14:44)
[2016-10-16] MEDS ORDERED: fentaNYL 100 MCG/2 ML VIAL ONE (14:44)
[2016-10-16] MEDS: AMITRIPTYLINE 10 MG TABLET PO SCH (21:51)
[2016-10-16] MEDS: ATORVASTATIN 10 MG TABLET PO SCH (21:51)
[2016-10-17] MEDS: ALBUTEROL 0.63 MG/3 ML NEB RESP TX SCH ×6 (03:23→23:50)
[2016-10-17] MEDS: fentaNYL 100 MCG/2 ML VIAL IV SCH ×5 (06:00→21:33)
[2016-10-17] MEDS ORDERED: MIDAZOLAM 2 MG/2 ML VIAL ONE (06:59)
--- NOTE | 2016-10-17 07:39 | EKG Report ---
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
[2016-10-17] MEDS: PANTOPRAZOLE 40 MG TABLET PO SCH (08:20)
[2016-10-17] MEDS: ACYCLOVIR 200 MG CAPSULE PO SCH ×2 (08:20→20:57)
[2016-10-17] MEDS: levETIRAcetam 500 MG TABLET PO SCH ×2 (08:20→20:57)
[2016-10-17] MEDS: guaiFENesin/DM ER 600-30 MG TABLET PO SCH ×2 (08:21→20:57)
[2016-10-17] MEDS: METHOCARBAMOL 750 MG TABLET PO SCH ×2 (08:21→20:58)
[2016-10-17] MEDS: oxyCODONE/ACETAMINOPHEN 5-325 MG TABLET PO PRN ×2 (08:21→16:06)
--- NOTE | 2016-10-17 10:03 | Hospitalist Progress Note ---
Assessment and Plan (1) Reactive cervical lymphadenopathy Status: Acute Assessment and plan: Status post excisional biopsy. Follow-up path report. Follow-up with ENT as an outpatient as needed. 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 Operative notes reviewed. at the bedside. Awaiting acceptance to rehabilitation. No acute events overnight. Exam - Constitutional Vitals: Period Temp Pulse Resp BP Sys/Mcwilliams Pulse Ox Last 24 Hr 96.3 F-99.2 F 89-117 15-20 87-133/38-83 89-100 General appearance: no acute distress - Neck Neck exam: Present: lymphadenopathy, tenderness, other (postop area clean dry and intact) - Respiratory Respiratory exam: Present: clear to auscultation bilaterally - Cardiovascular Cardiovascular exam: Present: regular rate and rhythm - GI/Abdominal GI/Abdominal exam: Present: normal bowel sounds, soft. Absent: rebound Results - Labs CBC & BMP: 10/15/16 05:18 10/15/16 05:18 Lab Results: I have reviewed the past 24 hour labs Specialty Discharge - Follow Up or Referrals Follow up with: Meek Hendricks DO [Physician] - (Call office if needed)
[2016-10-17] MEDS: AMPHETAMINE PO SCH (10:23)
[2016-10-17] MEDS: DEXTROAMPHETAMINE PO SCH (10:23)
--- NOTE | 2016-10-17 10:28 | Anesthesia ---
Anesthesia Post OP - Post Ansesthetic Evaluation Patient seen in post op: Yes Resp: within normal limits CV: within normal limits Mental: within normal limits Temp: within normal limits [id number]: within normal limits Nausea and Vomiting: within normal limits Pain: within normal limits
[2016-10-17] MEDS: AMITRIPTYLINE 10 MG TABLET PO SCH (20:57)
[2016-10-17] MEDS: ATORVASTATIN 10 MG TABLET PO SCH (20:58)
[2016-10-18] MEDS: ALBUTEROL 0.63 MG/3 ML NEB RESP TX SCH ×5 (02:49→19:28)
[2016-10-18] MEDS: oxyCODONE/ACETAMINOPHEN 5-325 MG TABLET PO PRN ×2 (03:05→21:24)
[2016-10-18] MEDS: fentaNYL 100 MCG/2 ML VIAL IV SCH ×5 (05:55→23:32)
[2016-10-18] MEDS: METHOCARBAMOL 750 MG TABLET PO SCH ×2 (10:24→21:13)
[2016-10-18] MEDS: guaiFENesin/DM ER 600-30 MG TABLET PO SCH ×2 (10:24→21:12)
[2016-10-18] MEDS: DEXTROAMPHETAMINE PO SCH (10:24)
[2016-10-18] MEDS: ACYCLOVIR 200 MG CAPSULE PO SCH ×2 (10:24→21:13)
[2016-10-18] MEDS: levETIRAcetam 500 MG TABLET PO SCH ×2 (10:24→21:12)
[2016-10-18] MEDS: PANTOPRAZOLE 40 MG TABLET PO SCH (10:24)
[2016-10-18] MEDS: AMPHETAMINE PO SCH (10:24)
--- NOTE | 2016-10-18 12:20 | Pathology Report from [facility] ---
ACCESSION # : [id number] PATIENT NAME : Awilda Goddard ORDERING DR : Meek Hendricks DO CLINICAL HX: Reactive cervical lymphadenopathy POST-OP DX: Same SPECIMEN INFO: Left cervical lymph node GROSS DESCRIPTION: Received fresh labeled with the patient's name "AWILDA GODDARD " and consists of multiple fragments of hyperemic rivera tissue measuring 2.5 x 1.4 cm. Sectioned and submitted in one cassette. DIAGNOSIS FOR AWILDA GODDARD: LEFT CERVICAL LYMPH NODE: Malignant lymphoma, CD20+ Sent for marker studies. SERVICE DATE: 10/17/2016 REPORT DATE: 10/18/2016 PATHOLOGIST: Frankie Fox III, M.D. MTDD
--- NOTE | 2016-10-18 17:35 | Hospitalist Progress Note ---
Assessment and Plan (1) Reactive cervical lymphadenopathy Status: Acute Assessment and plan: Status post excisional biopsy. Follow-up path report. Follow-up with ENT as an outpatient as needed. 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 Case discussed with case management. Awaiting approval from insurance and possible swing bed transfer. Exam - Constitutional Vitals: Period Temp Pulse Resp BP Sys/Mcwilliams Pulse Ox Last 24 Hr 97.5 F-98.6 F 84-108 16-22 92-118/57-84 93-100 General appearance: no acute distress - Head Head exam: Present: other (status post craniotomy.) - Neck Neck exam: Present: lymphadenopathy, tenderness - Respiratory Respiratory exam: Present: clear to auscultation bilaterally - Cardiovascular Cardiovascular exam: Present: regular rate and rhythm - GI/Abdominal GI/Abdominal exam: Present: normal bowel sounds, soft. Absent: tenderness, rebound - Neurological Exam Neurological exam: Present: alert Results - Labs CBC & BMP: 10/15/16 05:18 10/15/16 05:18 Lab Results: I have reviewed the past 24 hour labs Specialty Discharge - Follow Up or Referrals Follow up with: Meek Hendricks DO [Physician] - (Call office if needed)
[2016-10-18] MEDS: AMITRIPTYLINE 10 MG TABLET PO SCH (21:12)
[2016-10-18] MEDS: ZALEPLON 5 MG CAPSULE PO PRN (21:13)
[2016-10-18] MEDS: ATORVASTATIN 10 MG TABLET PO SCH (21:13)
[2016-10-19] MEDS: ALBUTEROL 0.63 MG/3 ML NEB RESP TX SCH ×7 (00:23→23:00)
[2016-10-19] MEDS: oxyCODONE/ACETAMINOPHEN 5-325 MG TABLET PO PRN ×2 (03:49→21:05)
[2016-10-19] MEDS: fentaNYL 100 MCG/2 ML VIAL IV SCH ×4 (05:50→17:33)
[2016-10-19] MEDS: ACYCLOVIR 200 MG CAPSULE PO SCH ×2 (08:42→21:06)
[2016-10-19] MEDS: METHOCARBAMOL 750 MG TABLET PO SCH ×2 (08:42→21:05)
[2016-10-19] MEDS: AMPHETAMINE PO SCH (08:42)
[2016-10-19] MEDS: guaiFENesin/DM ER 600-30 MG TABLET PO SCH ×2 (08:42→21:05)
[2016-10-19] MEDS: DEXTROAMPHETAMINE PO SCH (08:42)
[2016-10-19] MEDS: levETIRAcetam 500 MG TABLET PO SCH ×2 (08:42→21:05)
[2016-10-19] MEDS: PANTOPRAZOLE 40 MG TABLET PO SCH (08:42)
--- NOTE | 2016-10-19 14:03 | Hospitalist Progress Note ---
Assessment and Plan (1) Reactive cervical lymphadenopathy Status: Acute Assessment and plan: Status post excisional biopsy. Follow-up path report. Follow-up with ENT as an outpatient as needed. Current Visit: Yes (2) Status post tracheostomy Status: Chronic Current Visit: No (3) Status post craniotomy Status: Chronic Current Visit: No (4) Right hemiplegia Status: Chronic Assessment and plan: continue PT and await acceptance to rehab. 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 Her father is at the bedside. Complains of pain overnight and difficulty sleeping. They are waiting except and started rehabilitation. Case discussed with nursing staff and family at the bedside. Pathology report pending. Exam - Constitutional Vitals: Period Temp Pulse Resp BP Sys/Mcwilliams Pulse Ox Last 24 Hr 97.2 F-99.5 F 90-115 16-21 106-117/59-84 92-100 General appearance: mild distress - Neck Neck exam: Present: lymphadenopathy, tenderness - Respiratory Respiratory exam: Present: clear to auscultation bilaterally - Cardiovascular Cardiovascular exam: Present: regular rate and rhythm - GI/Abdominal GI/Abdominal exam: Present: normal bowel sounds, soft. Absent: tenderness, rebound - Extremities Exam Extremities exam: Absent: edema - Psychiatric Psychiatric exam: Present: agitated - Skin Skin exam: Present: normal color, warm, dry Results - Labs CBC & BMP: 10/15/16 05:18 10/15/16 05:18 Lab Results: I have reviewed the past 24 hour labs Specialty Discharge - Follow Up or Referrals Follow up with: Meek Hendricks DO [Physician] - (Call office if needed)
[2016-10-19] MEDS: ATORVASTATIN 10 MG TABLET PO SCH (21:05)
[2016-10-19] MEDS: AMITRIPTYLINE 10 MG TABLET PO SCH (21:05)
[2016-10-20] MEDS: fentaNYL 100 MCG/2 ML VIAL IV SCH ×6 (00:40→22:35)
[2016-10-20 02:25] LABS: Basophils # 0.1 10*3/uL (0.0-0.2); Basophils % 0.8 % (0.0-0.8); Eosinophils # 0.3 10*3/uL (0.0-0.87); Eosinophils % 3.3 % (0.00-10.9); Hematocrit 33.3 VOL% (35.7-47.0); Hemoglobin 10.6 GM/DL (12.0-16.0); Immature Granulocytes % 0.5 %; Immature Granulocytes Absolute 0.04 #; Lymphocytes # 1.7 10*3/uL (1.4-4.0); Mean Corpuscular HGB Conc 31.8 GM/DL (32-36); Mean Corpuscular Hemoglobin 28 PG (27-34); Mean Corpuscular Volume 87.9 FL (87-102); Mean Platelet Volume 9.7 FL (9.6-12.0); Monocytes # 0.7 10*3/uL (0.11-0.8); Monocytes % 8.4 % (1.7-12.7); Neutrophils # 5.8 10*3/uL (1.4-7.4); Platelet Count 455 10*3/uL (130-400); Red Blood Count 3.79 10*6/uL (3.8-5.5); Red Cell Distribution Width 14.8 % (9.3-17.3); White Blood Count 8.7 10*3/uL (4.5-13.71)
[2016-10-20 02:57] LABS: Calcium 8.8 MG/DL (8.5-10.1); Osmolality,Calculated 282.1 MOS/KG (273-304); Potassium 4.4 MMOL/L (3.5-5.1)
[2016-10-20] MEDS: ALBUTEROL 0.63 MG/3 ML NEB RESP TX SCH ×5 (03:20→19:20)
[2016-10-20] MEDS: METHOCARBAMOL 750 MG TABLET PO SCH ×2 (09:11→21:12)
[2016-10-20] MEDS: levETIRAcetam 500 MG TABLET PO SCH ×2 (09:11→21:11)
[2016-10-20] MEDS: AMPHETAMINE PO SCH (09:11)
[2016-10-20] MEDS: DEXTROAMPHETAMINE PO SCH (09:11)
[2016-10-20] MEDS: ACYCLOVIR 200 MG CAPSULE PO SCH ×2 (09:11→21:12)
[2016-10-20] MEDS: guaiFENesin/DM ER 600-30 MG TABLET PO SCH ×2 (09:11→21:12)
[2016-10-20] MEDS: PANTOPRAZOLE 40 MG TABLET PO SCH (09:12)
[2016-10-20] MEDS: oxyCODONE/ACETAMINOPHEN 5-325 MG TABLET PO PRN (13:55)
--- NOTE | 2016-10-20 16:10 | Hospitalist Progress Note ---
Assessment and Plan (1) Reactive cervical lymphadenopathy Status: Acute Assessment and plan: Status post excisional biopsy. Follow-up path report. suspect lymphoma Current Visit: Yes (2) Status post tracheostomy Status: Chronic Current Visit: No (3) Status post craniotomy Status: Chronic Current Visit: No (4) Right hemiplegia Status: Chronic Assessment and plan: continue PT and await acceptance to rehab. 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 Family reports poor pain control overnight. Preliminary path report shows lymphoma. Final pending. Exam - Constitutional Vitals: Period Temp Pulse Resp BP Sys/Mcwilliams Pulse Ox Last 24 Hr 97.2 F-98.6 F 90-109 18-22 95-109/60-75 91-100 General appearance: mild distress - Neck Neck exam: Present: lymphadenopathy - Respiratory Respiratory exam: Present: clear to auscultation bilaterally - Cardiovascular Cardiovascular exam: Present: regular rate and rhythm - GI/Abdominal GI/Abdominal exam: Present: normal bowel sounds, soft - Neurological Exam Neurological exam: Present: other (right hemiparesis) Results - Labs CBC & BMP: 10/20/16 01:33 10/20/16 01:33 Lab Results: I have reviewed the past 24 hour labs Specialty Discharge - Follow Up or Referrals Follow up with: Meek Hendricks DO [Physician] - (Call office if needed)
[2016-10-20] MEDS: fentaNYL 25 MCG/HR PATCH TRANSDERM SCH (16:36)
[2016-10-20] MEDS: ATORVASTATIN 10 MG TABLET PO SCH (21:12)
[2016-10-20] MEDS: AMITRIPTYLINE 10 MG TABLET PO SCH (21:12)
[2016-10-21] MEDS: ALBUTEROL 0.63 MG/3 ML NEB RESP TX SCH ×7 (00:32→23:10)
[2016-10-21] MEDS: fentaNYL 100 MCG/2 ML VIAL IV SCH ×5 (07:30→22:03)
[2016-10-21] MEDS: oxyCODONE/ACETAMINOPHEN 5-325 MG TABLET PO PRN ×2 (08:55→20:03)
[2016-10-21] MEDS: guaiFENesin/DM ER 600-30 MG TABLET PO SCH ×2 (10:03→20:02)
[2016-10-21] MEDS: AMPHETAMINE PO SCH (10:03)
[2016-10-21] MEDS: DEXTROAMPHETAMINE PO SCH (10:03)
[2016-10-21] MEDS: METHOCARBAMOL 750 MG TABLET PO SCH ×2 (10:03→20:01)
[2016-10-21] MEDS: PANTOPRAZOLE 40 MG TABLET PO SCH (10:04)
[2016-10-21] MEDS: ACYCLOVIR 200 MG CAPSULE PO SCH ×2 (10:04→20:01)
[2016-10-21] MEDS: levETIRAcetam 500 MG TABLET PO SCH ×2 (10:04→20:03)
--- NOTE | 2016-10-21 11:46 | Hospitalist Progress Note ---
Assessment and Plan (1) Reactive cervical lymphadenopathy Status: Acute Assessment and plan: Status post excisional biopsy. Preliminary path report suggests lymphoma. Further testing pending Current Visit: Yes (2) Status post tracheostomy Status: Chronic Current Visit: No (3) Status post craniotomy Status: Chronic Current Visit: No (4) Right hemiplegia Status: Chronic Assessment and plan: continue PT and await acceptance to rehab. 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 Chart reviewed. Case discussed with and [id number]. The initial pathology report is positive for lymphoma. Awaiting final report and we'll proceed with heme/onc evaluation and plan. Case also discussed with case management & social group worker. She has been awaiting acceptance to rehabilitation, however this is being held up by this new diagnosis of lymphoma and possible treatment. Exam - Constitutional Vitals: Period Temp Pulse Resp BP Sys/Mcwilliams Pulse Ox Last 24 Hr 96.3 F-98.6 F 73-105 16-24 96-110/53-82 93-99 General appearance: no acute distress - Neck Neck exam: Present: lymphadenopathy, tenderness - Respiratory Respiratory exam: Present: clear to auscultation bilaterally - Cardiovascular Cardiovascular exam: Present: regular rate and rhythm - GI/Abdominal GI/Abdominal exam: Present: normal bowel sounds, soft - Extremities Exam Extremities exam: Absent: edema Results - Labs CBC & BMP: 10/20/16 01:33 10/20/16 01:33 Lab Results: I have reviewed the past 24 hour labs Specialty Discharge - Follow Up or Referrals Follow up with: Meek Hendricks DO [Physician] - (Call office if needed)
[2016-10-21] MEDS: ATORVASTATIN 10 MG TABLET PO SCH (20:02)
[2016-10-21] MEDS: AMITRIPTYLINE 10 MG TABLET PO SCH (20:02)
[2016-10-22] MEDS: ALBUTEROL 0.63 MG/3 ML NEB RESP TX SCH ×5 (03:38→21:00)
[2016-10-22] MEDS: fentaNYL 100 MCG/2 ML VIAL IV SCH ×6 (07:00→22:34)
--- NOTE | 2016-10-22 08:30 | Hospitalist Progress Note ---
Assessment and Plan (1) CVA (cerebral vascular accident) Status: Chronic Assessment and plan: Residual right hemiplegia and expressive aphasia with initial acute decompressive craniotomy. Current Visit: No (2) Reactive cervical lymphadenopathy Status: Acute Assessment and plan: Final pathology report pending with preliminary suggesting lymphoma. Current Visit: Yes Hospitalist: Subjective Interval history: 51 yo female with February 2015 hemorrhagic dominant hemispheric CVA with dense RIND. Had initially required decompressing craniotomy with subsequent repair precipitating tracheostomy and PEG. Found to have lymphadenopathy with biopsy on the preliminary consistent with lymphoma. Her vitals were stable overnight and she is awake and alert with dense right hemiplegia and expressive aphasia. Right foot cool with palpable pulse and capillary refill present, family member describes as consistent finding and patient indicates only sensation of numbness. Exam - Constitutional Vitals: Period Temp Pulse Resp BP Sys/Mcwilliams Pulse Ox Last 24 Hr 96.8 F-98.3 F 73-110 18-21 103-123/58-80 91-99 General appearance: normal weight - Respiratory Respiratory exam: Present: clear to auscultation bilaterally. Absent: rales, rhonchi, wheezes - Cardiovascular Cardiovascular exam: Present: regular rate and rhythm - GI/Abdominal GI/Abdominal exam: Present: normal bowel sounds. Absent: tenderness - Extremities Exam Extremities exam: Present: other (right lower extremity discoloration and reduced skin temperature) - Neurological Exam Neurological exam: Present: alert, oriented X3, other (RIND with right hemiplegia and expressive aphasiia) Results - Labs CBC & BMP: 10/20/16 01:33 10/20/16 01:33 Specialty Discharge - Follow Up or Referrals Follow up with: Meek Hendricks DO [Physician] - (Call office if needed)
[2016-10-22] MEDS: guaiFENesin/DM ER 600-30 MG TABLET PO SCH ×2 (08:49→20:32)
[2016-10-22] MEDS: levETIRAcetam 500 MG TABLET PO SCH ×2 (08:49→20:32)
[2016-10-22] MEDS: METHOCARBAMOL 750 MG TABLET PO SCH ×2 (08:49→20:32)
[2016-10-22] MEDS: ACYCLOVIR 200 MG CAPSULE PO SCH ×2 (08:50→20:32)
[2016-10-22] MEDS: AMPHETAMINE PO SCH (08:50)
[2016-10-22] MEDS: DEXTROAMPHETAMINE PO SCH (08:50)
[2016-10-22] MEDS: PANTOPRAZOLE 40 MG TABLET PO SCH (08:50)
[2016-10-22] MEDS: diphenhydrAMINE CAP 50 MG CAPSULE PO PRN (12:11)
[2016-10-22] MEDS: ZALEPLON 5 MG CAPSULE PO PRN (20:31)
[2016-10-22] MEDS: ATORVASTATIN 10 MG TABLET PO SCH (20:32)
[2016-10-22] MEDS: AMITRIPTYLINE 10 MG TABLET PO SCH (20:32)
[2016-10-22] MEDS: oxyCODONE/ACETAMINOPHEN 5-325 MG TABLET PO PRN (20:32)
[2016-10-23] MEDS: ALBUTEROL 0.63 MG/3 ML NEB RESP TX SCH ×6 (01:01→20:12)
[2016-10-23] MEDS: fentaNYL 100 MCG/2 ML VIAL IV SCH ×5 (05:55→22:50)
--- NOTE | 2016-10-23 07:41 | Hospitalist Progress Note ---
Assessment and Plan (1) CVA (cerebral vascular accident) Status: Chronic Assessment and plan: Residual right hemiplegia and expressive aphasia with initial acute decompressive craniotomy. Current Visit: No (2) Reactive cervical lymphadenopathy Status: Acute Assessment and plan: Final pathology report pending with preliminary suggesting lymphoma. Current Visit: Yes Hospitalist: Subjective Interval history: 51 yo female sustaining in February 2015 hemorrhagic dominant hemispheric CVA with dense residual neurologic deficit. Found to have lymph node enlargement with preliminary biopsy report indicating lymphoma on this admission. Yesterday's right foot changes have resolved supporting post CVA vascular instability rather than fixed obstruction (Doppler report pending). Exam - Constitutional Vitals: Period Temp Pulse Resp BP Sys/Mcwilliams Pulse Ox Last 24 Hr 97.7 F-98.5 F 61-113 18-25 95-117/62-70 91-100 General appearance: normal weight - Respiratory Respiratory exam: Present: clear to auscultation bilaterally. Absent: rales, rhonchi, wheezes - Cardiovascular Cardiovascular exam: Present: regular rate and rhythm - GI/Abdominal GI/Abdominal exam: Present: normal bowel sounds. Absent: tenderness - Extremities Exam Extremities exam: Absent: edema - Neurological Exam Neurological exam: Present: alert, other (stable neurologic defect (expressive aphasia with dense right hemiplegia)) - Psychiatric Psychiatric exam: Present: other (appears uncomfortable this AM) Results - Labs CBC & BMP: 10/20/16 01:33 10/20/16 01:33 Specialty Discharge - Follow Up or Referrals Follow up with: Meek Hendricks DO [Physician] - (Call office if needed)
[2016-10-23] MEDS: AMPHETAMINE PO SCH (08:04)
[2016-10-23] MEDS: DEXTROAMPHETAMINE PO SCH (08:04)
[2016-10-23] MEDS: fentaNYL 25 MCG/HR PATCH TRANSDERM SCH (10:28)
[2016-10-23] MEDS: METHOCARBAMOL 750 MG TABLET PO SCH ×2 (10:30→20:29)
[2016-10-23] MEDS: PANTOPRAZOLE 40 MG TABLET PO SCH (10:31)
[2016-10-23] MEDS: guaiFENesin/DM ER 600-30 MG TABLET PO SCH ×2 (10:31→20:30)
[2016-10-23] MEDS: levETIRAcetam 500 MG TABLET PO SCH ×2 (10:31→20:29)
[2016-10-23] MEDS: ACYCLOVIR 200 MG CAPSULE PO SCH ×2 (10:34→20:29)
[2016-10-23] MEDS: AMITRIPTYLINE 10 MG TABLET PO SCH (20:29)
[2016-10-23] MEDS: ZALEPLON 5 MG CAPSULE PO PRN (20:29)
[2016-10-23] MEDS: ATORVASTATIN 10 MG TABLET PO SCH (20:30)
[2016-10-23] MEDS: oxyCODONE/ACETAMINOPHEN 5-325 MG TABLET PO PRN (20:35)
[2016-10-24] MEDS: ALBUTEROL 0.63 MG/3 ML NEB RESP TX SCH ×6 (00:04→20:22)
[2016-10-24] MEDS: fentaNYL 100 MCG/2 ML VIAL IV SCH ×5 (06:27→23:42)
--- NOTE | 2016-10-24 08:22 | Hospitalist Progress Note ---
Assessment and Plan (1) CVA (cerebral vascular accident) Status: Chronic Assessment and plan: Residual right hemiplegia and expressive aphasia with initial acute decompressive craniotomy. Current Visit: No (2) Reactive cervical lymphadenopathy Status: Acute Assessment and plan: Final pathology report pending with preliminary suggesting lymphoma. Current Visit: Yes Hospitalist: Subjective Interval history: 51 yo female sustaining in February 2015 hemorrhagic dominant hemispheric CVA with dense residual neurologic deficit. Complicated course subsequently with repair of decompressive craniotomy apparently complicated by requirement for tracheostomy and PEG tube placement. Admitted after had been noted to have neck swelling at rehab center. Had initial needle biopsy done on the with indeterminate report on the . Operative biopsy was done on the with report of the consistent with lymphoma apparently awaiting surface antigen report. She continues clinically stable Exam - Constitutional Vitals: Period Temp Pulse Resp BP Sys/Mcwilliams Pulse Ox Last 24 Hr 97.3 F-98.3 F 86-112 17-20 81-110/56-80 92-110 General appearance: normal weight - Respiratory Respiratory exam: Present: clear to auscultation bilaterally - Cardiovascular Cardiovascular exam: Present: regular rate and rhythm - GI/Abdominal GI/Abdominal exam: Present: normal bowel sounds. Absent: tenderness - Extremities Exam Extremities exam: Absent: edema - Neurological Exam Neurological exam: Present: alert, oriented X3, other (expressive aphasia and dense right hemiplegia.) Results - Labs CBC & BMP: 10/20/16 01:33 10/20/16 01:33 Specialty Discharge - Follow Up or Referrals Follow up with: Meek Hendricks DO [Physician] - (Call office if needed)
[2016-10-24] MEDS: AMPHETAMINE PO SCH (09:20)
[2016-10-24] MEDS: ACYCLOVIR 200 MG CAPSULE PO SCH ×2 (09:20→20:36)
[2016-10-24] MEDS: METHOCARBAMOL 750 MG TABLET PO SCH ×2 (09:20→20:36)
[2016-10-24] MEDS: guaiFENesin/DM ER 600-30 MG TABLET PO SCH ×2 (09:20→20:36)
[2016-10-24] MEDS: PANTOPRAZOLE 40 MG TABLET PO SCH (09:20)
[2016-10-24] MEDS: levETIRAcetam 500 MG TABLET PO SCH ×2 (09:20→20:36)
[2016-10-24] MEDS: DEXTROAMPHETAMINE PO SCH (09:20)
[2016-10-24] MEDS: oxyCODONE/ACETAMINOPHEN 5-325 MG TABLET PO PRN ×2 (13:38→20:36)
[2016-10-24] MEDS: AMITRIPTYLINE 10 MG TABLET PO SCH (20:36)
[2016-10-24] MEDS: ATORVASTATIN 10 MG TABLET PO SCH (20:36)
[2016-10-25] MEDS: ALBUTEROL 0.63 MG/3 ML NEB RESP TX SCH ×7 (00:14→23:06)
[2016-10-25] MEDS: ZALEPLON 5 MG CAPSULE PO PRN ×2 (00:24→20:55)
[2016-10-25] MEDS: oxyCODONE/ACETAMINOPHEN 5-325 MG TABLET PO PRN ×2 (04:56→20:56)
[2016-10-25] MEDS: fentaNYL 100 MCG/2 ML VIAL IV SCH ×5 (05:52→21:09)
[2016-10-25] MEDS: AMPHETAMINE PO SCH (09:27)
[2016-10-25] MEDS: METHOCARBAMOL 750 MG TABLET PO SCH ×2 (09:27→20:55)
[2016-10-25] MEDS: ACYCLOVIR 200 MG CAPSULE PO SCH ×2 (09:27→20:55)
[2016-10-25] MEDS: guaiFENesin/DM ER 600-30 MG TABLET PO SCH ×2 (09:27→20:55)
[2016-10-25] MEDS: levETIRAcetam 500 MG TABLET PO SCH ×2 (09:27→20:55)
[2016-10-25] MEDS: PANTOPRAZOLE 40 MG TABLET PO SCH (09:27)
[2016-10-25] MEDS: DEXTROAMPHETAMINE PO SCH (09:27)
[2016-10-25] MEDS ORDERED: RACEPINEPHRINE 0.5 ML NEB RESP TX PRN (11:01)
[2016-10-25] MEDS: diphenhydrAMINE CAP 50 MG CAPSULE PO PRN (11:39)
--- NOTE | 2016-10-25 13:12 | Hospitalist Progress Note ---
Assessment and Plan (1) Malignant lymphoma Status: Acute Assessment and plan: Patient was not aware of her diagnosis. I have only seen her today but not sure why she is still in the hospital. Current Visit: Yes (2) CVA (cerebral vascular accident) Status: Chronic Assessment and plan: Previous craniotomy. Current Visit: No (3) Anemia Status: Acute Assessment and plan: stable Current Visit: No Hospitalist: Subjective Interval history: Patient still snoring when I walked into the room. I am concerned about tracheal stenosis was seen to her breathing. I discussed it with Dr. Hendricks said that is a possibility but with her current diagnosis of lymphoma he is not sure how aggressive family wants to be. Patient had a recent craniotomy after having an acute stroke. Prognosis poor. removed trach two weeks ago Exam - Constitutional Vitals: Period Temp Pulse Resp BP Sys/Mcwilliams Pulse Ox Last 24 Hr 96.6 F-99.3 F 84-123 18-24 93-117/53-80 91-99 Exam: Heart Rate-[tachy] Lungs-[rhonchi] GI-[+bs soft, NT] neuro cannot assess sleeping psych cannot assess sleeping Results - Labs CBC & BMP: 10/20/16 01:33 10/20/16 01:33 Lab Results: I have reviewed the past 24 hour labs Labs: Pathology report shows malignant lymphoma Specialty Discharge - Follow Up or Referrals Follow up with: Meek Hendricks DO [Physician] - (Call office if needed)
--- NOTE | 2016-10-25 15:14 | Emergency Department Note ---
IGrover Brittany, am scribing for, and in the presence of, Boni Rivera MD 17:20. Miguel Restrepo Doug C, MD, personally performed the services described in this documentation, ascribed by Odilia Ness in my presence, and it is both accurate and complete 811 . Arrival <Donald Jones - Last Filed: 10/06/16 19:15> - Arrival ED Nursing Triage Note: c/o n/v times 1 today. pt also has swelling to the lt side of her neck Mode of Arrival: Stretcher Source: RN Notes Reviewed <Boni Rivera - Last Filed: 10/25/16 15:13> - Arrival Chief Complaint: Nausea/Vomiting/Diarrhea Time Seen by Provider: 10/06/16 17:16 - History of Present Illness HPI Narrative: Patient is a 51-year-old white female transferred from [facility] rehab unit for evaluation of neck swelling and vomiting. She apparently developed some nausea and vomiting today and staff at rehab noticed that her left neck was very swollen and apparently tender. There is no recorded fever and patient is unable to give any history whatsoever. Patient has history of intracerebral hemorrhage with resultant brain injury. Patient had a tracheostomy in place but this has been bandaged and she has been maintaining her airway very nicely.. (Boni Rivera) Allergies/Adverse Reactions: Allergies Allergy/AdvReac Type Severity Reaction Status Date / Time No Known Allergies Allergy Verified 03/17/15 13:59 Home Medications: Home Medications Medication Instructions Recorded Confirmed Type Acyclovir [Acyclovir Cap/Tab] 400 mg PO BID 03/17/15 10/06/16 History Amitriptyline [Elavil] 20 mg PO BEDTIME 03/17/15 10/06/16 History Dextroamphetamine/Amphetamine 30 mg PO AC BREAKFAST 03/17/15 10/06/16 History [Adderall XR] Loratadine [Claritin] 10 mg PO DAILY PRN 03/17/15 10/06/16 History Methocarbamol Tab [Robaxin Tab] 750 mg PO BID 03/17/15 10/06/16 History Atorvastatin [Lipitor] 10 mg PO BEDTIME 09/18/16 10/06/16 History Naproxen [Naprosyn Tab] 500 mg PO DAILY 09/18/16 10/06/16 History Pantoprazole Tab [Protonix Tab] 40 mg PO DAILY 09/18/16 10/06/16 History guaiFENesin/DM ER 600-30 [Mucinex 1 tablet PO BID 09/18/16 10/06/16 History Dm 600-30 MG] levETIRAcetam [Levetiracetam] 1,000 mg PO BID 09/18/16 10/06/16 History Acetaminophen [Acetaminophen ER 650 mg PO Q6H PRN 10/06/16 10/06/16 History Tab] Alum/Mag/Simeth Max Str Liquid 30 ml PO Q6H PRN 10/06/16 10/06/16 History [Mylanta Max Strength Liquid] Enoxaparin Sodium 40 mg SUBCUT Q24H 10/06/16 10/06/16 History HYDROcodone/ACETAMIN 5-325 [Shiloh 2 tablet PO Q6H PRN 10/06/16 10/06/16 History 5-325] Magnesium Hydroxide Susp [Milk of 30 ml PO DAILY PRN 10/06/16 10/06/16 History Magnesia] Nitrofurantoin Macro/Woodson 100 mg PO BID 10/06/16 10/06/16 History [Macrobid] Ondansetron HCl/Pf [Ondansetron 4 4 mg IJ Q6H PRN 10/06/16 10/06/16 History mg/2 ml Ampule] Ondansetron Tab [Zofran Tab] 4 mg PO Q6H PRN 10/06/16 10/06/16 History Polyethylene Glycol Powder 17 gm PO DAILY PRN 10/06/16 10/06/16 History [Miralax] Hydrocodone/Acetaminophen 1 each PO Q6H PRN #30 tablet 10/10/16 Rx [Hydrocodon-Acetaminophen 5-325] oxyCODONE/ACETAMINOPHEN 5-325 1 tablet PO Q6H #30 tablet 10/10/16 Rx [Percocet 5-325] Review of System - Review of System ROS unobtainable: due to mental status (Patient has an expressive aphasia) <Boni Rivera - Last Filed: 10/25/16 15:13> Medical,Surgical,& Family Hx - Medical History Cardio: History of: Hypertension Psychological: History of: ADHD, Depression Neurology: History of: Cerebrovascular Accident (February 2016), Migraine Genitourinary: History of: Recurring Urinary Tract Infections Gastrointestinal: History of: GI Problems (Lactose intolerant) Musculoskeletal: History of: Musculoskeletal Problems (fibromyalgia) Other: History of: Miscellaneous Medical Problems (narcolepsy) - Surgical History Cardiac Surgeries: Sugical HX of: Cardiac Catheterization (x2) Neurologic Surgeries: Surgical HX of: Cerebral Hemorrhage Abdominal Surgeries: Patient denies: Abdominal Surgery Reproductive Surgeries: Patient denies;: Genitourinary Surgery, Gynecologic Surgery - Family History Family History: Reports;: Family Cancer (BROTHER), Family Diabetes (FATHER), Family Hypertension (MOTHER AND FATHER), Family Stroke (FAHTER) - Social History Smoking Status: Smoker, status unknown Frequency of Alcohol Use: None Type of Drug Use: None <Boni Rivera - Last Filed: 10/25/16 15:13> Exam - General General appearance: alert, in no apparent distress - Head Head exam: Present: other (Patient has postoperative changes in the left frontal parietal area.) - Eye Eye exam: Present: PERRL, EOMI - ENT ENT exam: Present: normal oropharynx (There is no purulence at Stensen's duct). Absent: normal exam (Patient is noted to have left parotid and left neck swelling which is quite tender.) - Neck Neck exam: Present: tenderness, lymphadenopathy (Left anterior cervical adenopathy which is quite tender.) - Respiratory Respiratory exam: Present: normal lung sounds bilaterally - Cardiovascular Cardiovascular exam: Present: regular rate, normal rhythm, normal heart sounds - Abdominal Exam Abdominal exam: Present: soft, other (PEG tube in place). Absent: tenderness - Extremities Exam Extremities exam: Present: normal inspection - Neurological Exam Neurological exam: Present: alert, motor sensory deficit (Right hemiparesis). Absent: oriented X3, CN II-XII intact (Right central facial weakness) - Skin Skin exam: Present: warm, dry <Boni Rivera - Last Filed: 10/25/16 15:13> Vital Signs: Vital Signs Temperature 96.6 F L 10/25/16 12:00 Pulse Rate 103 H 10/25/16 12:00 Respiratory Rate 22 10/25/16 12:00 Blood Pressure 113/72 10/25/16 12:00 O2 Sat by Pulse Oximetry 98 10/25/16 12:00 (Odilia Ness) (Donald Jones) (Boni Rivera) Course - Consultations Time: 19:15 <Donald Jones - Last Filed: 10/06/16 19:15> <Boni Rivera - Last Filed: 10/25/16 15:13> - Consultations Consultation #1: Dr. Walden will come and admit patient (RobertDonald Crandall) Results - Labs CBC & BMP: 10/06/16 18:02 10/06/16 18:02 Lab Results: I have reviewed the patients labs <Donald Jones - Last Filed: 10/06/16 19:15> - Labs CBC & BMP: 10/20/16 01:33 10/20/16 01:33 <Boni Rivera - Last Filed: 10/25/16 15:13> Critical Care Time Critical Care Time: Yes Total Critical Care Time: 60 <Donald Jones - Last Filed: 10/06/16 19:15> Disposition Case discussed with: patient, patient's family Time of Disposition: 19:17 <Donald Jones - Last Filed: 10/06/16 19:15> <Boni Rivera - Last Filed: 10/25/16 15:13> Clinical Impression: Aphasia as late effect of cerebrovascular accident (CVA), swelling left neck, nonspecific lymphadenopathy left neck, Bilateral pneumonia Disposition: Still a Patient New Prescriptions: Rx's Medication Instructions Recorded Hydrocodone/Acetaminophen 1 each PO Q6H PRN #30 tablet 10/10/16 [Hydrocodon-Acetaminophen 5-325] oxyCODONE/ACETAMINOPHEN 5-325 1 tablet PO Q6H #30 tablet 10/10/16 [Percocet 5-325]
[2016-10-25] MEDS: POLYETHYLENE GLYCOL POWDER 17 GM PACK PO PRN (19:02)
[2016-10-25] MEDS: ATORVASTATIN 10 MG TABLET PO SCH (20:55)
[2016-10-25] MEDS: AMITRIPTYLINE 10 MG TABLET PO SCH (20:55)
[2016-10-26] MEDS: oxyCODONE/ACETAMINOPHEN 5-325 MG TABLET PO PRN ×2 (02:12→20:54)
[2016-10-26] MEDS: ALBUTEROL 0.63 MG/3 ML NEB RESP TX SCH ×6 (03:42→23:27)
[2016-10-26] MEDS: fentaNYL 100 MCG/2 ML VIAL IV SCH ×5 (06:16→21:31)
[2016-10-26 06:42] LABS: Basophils # 0.1 10*3/uL (0.0-0.2); Basophils % 0.6 % (0.0-0.8); Eosinophils # 0.1 10*3/uL (0.0-0.87); Eosinophils % 0.5 % (0.00-10.9); Hematocrit 31.5 VOL% (35.7-47.0); Hemoglobin 9.8 GM/DL (12.0-16.0); Immature Granulocytes % 0.4 %; Immature Granulocytes Absolute 0.05 #; Lymphocytes # 1.8 10*3/uL (1.4-4.0); Lymphocytes % 14.6 % (21.3-54.2); Mean Corpuscular HGB Conc 31.1 GM/DL (32-36); Mean Corpuscular Hemoglobin 27 PG (27-34); Mean Corpuscular Volume 85.8 FL (87-102); Monocytes # 0.9 10*3/uL (0.11-0.8); Neutrophils # 9.7 10*3/uL (1.4-7.4); Neutrophils % 76.9 % (38.7-73.9); Platelet Count 486 10*3/uL (130-400); Red Blood Count 3.67 10*6/uL (3.8-5.5); Red Cell Distribution Width 14.9 % (9.3-17.3); White Blood Count 12.6 10*3/uL (4.5-13.71)
[2016-10-26 07:10] LABS: Calcium 8.8 MG/DL (8.5-10.1); Osmolality,Calculated 280.3 MOS/KG (273-304); Potassium 4.7 MMOL/L (3.5-5.1)
[2016-10-26] MEDS: fentaNYL 25 MCG/HR PATCH TRANSDERM SCH (09:00)
[2016-10-26] MEDS: guaiFENesin/DM ER 600-30 MG TABLET PO SCH ×2 (09:01→20:55)
[2016-10-26] MEDS: ACYCLOVIR 200 MG CAPSULE PO SCH ×2 (09:01→20:54)
[2016-10-26] MEDS: DEXTROAMPHETAMINE PO SCH (09:01)
[2016-10-26] MEDS: AMPHETAMINE PO SCH (09:01)
[2016-10-26] MEDS: METHOCARBAMOL 750 MG TABLET PO SCH ×2 (09:01→20:55)
[2016-10-26] MEDS: PANTOPRAZOLE 40 MG TABLET PO SCH (09:02)
[2016-10-26] MEDS: levETIRAcetam 500 MG TABLET PO SCH ×2 (09:02→20:55)
--- NOTE | 2016-10-26 09:42 | Oncology Progress Note ---
Oncology Subjective PN Interval history: Consult taken for lymphoma. Patient with biopsy of the left cervical region. She does have multiple palpable nodes on examination. Her history is notable for CVA with craniotomy. Her [id number] was present this morning. She actually states CVA 2. Patient is referred from [facility] previously. I reviewed the case management notes and there is concern about insurance not approving further rehabilitation. Regarding her lymphoma this is a CD20 positive B-cell non-Hodgkin's lymphoma. Further subtype identification is still pending at this time. Formal staging is also pending. 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 The patient has expressive aphasia but does appear awake and alert. I will need to know more characteristics of the cell type and speak with the in the next 1-2 days. Also disposition to be arranged, home versus rehab Exam - Constitutional Vitals: Period Temp Pulse Resp BP Sys/Mcwilliams Pulse Ox Last 24 Hr 96.6 F-98.7 F 74-127 18-22 108-144/63-86 92-100 Results - Labs CBC & BMP: 10/26/16 04:12 10/26/16 04:12 Specialty Discharge - Follow Up or Referrals Follow up with: Meek Hendricks DO [Physician] - (Call office if needed)
[2016-10-26] MEDS: diphenhydrAMINE CAP 50 MG CAPSULE PO PRN (10:07)
--- NOTE | 2016-10-26 15:11 | Hospitalist Progress Note ---
Assessment and Plan (1) Non-Hodgkin lymphoma Status: Acute Assessment and plan: Patient with non-Hodgkin lymphoma with subtyping is pending. Oncology service following and to discuss the treatment with the Current Visit: Yes (2) Anemia Status: Chronic Assessment and plan: Overall stable hemoglobin and hematocrit Current Visit: No (3) CVA (cerebral vascular accident) Status: Chronic Assessment and plan: Pt remained aphasic. she has a PEG tube but reported tolerating by mouth food Current Visit: No (4) Seizures Status: Chronic Assessment and plan: No recent seizures documented Current Visit: No Hospitalist: Subjective Interval history: Ms. Goddard is a 51 year old female who is been at [facility] after CVA. She was admitted on 10/06/2016 for episode of cold clammy nausea and vomiting and left-sided neck swelling is out of any fever. Initially she was in the ICU but then is transferred to the regular ann. She was on antibiotics initially but had been discontinued. She underwent biopsy of a neck mass and recently revealed to be CD20 positive non-Hodgkin lymphoma. Further subtyping is pending and the [facility] options to discuss oncology with the patient's and patient is a phasic unable to provide any information or subjective complaint. She remained afebrile Exam - Constitutional Vitals: Period Temp Pulse Resp BP Sys/Mcwilliams Pulse Ox Last 24 Hr 97.5 F-99.0 F 68-127 18-22 108-144/63-86 92-100 General appearance: no acute distress - ENT ENT exam: Present: other (left-sided neck mass / lymphadenopathy involving the tissue overlying the angle of mandible and parotid) - Respiratory Respiratory exam: Absent: rhonchi (equal air entry bilaterally with bilateral rhonchi on auscultation) - Cardiovascular Cardiovascular exam: Present: regular rate and rhythm. Absent: tachycardia - GI/Abdominal GI/Abdominal exam: Present: normal bowel sounds, soft. Absent: tenderness - Extremities Exam Extremities exam: Present: edema (bilateral lower extremity edema present reported chronic) Results - Labs CBC & BMP: 10/26/16 04:12 10/26/16 04:12 Lab Results: I have reviewed the past 24 hour labs Specialty Discharge - Follow Up or Referrals Follow up with: Meek Hendricks DO [Physician] - (Call office if needed)
[2016-10-26] MEDS: AMITRIPTYLINE 10 MG TABLET PO SCH (20:54)
[2016-10-26] MEDS: ATORVASTATIN 10 MG TABLET PO SCH (20:55)
[2016-10-27] MEDS: ALBUTEROL 0.63 MG/3 ML NEB RESP TX SCH ×5 (03:09→20:31)
[2016-10-27] MEDS: fentaNYL 100 MCG/2 ML VIAL IV SCH ×5 (06:29→22:14)
--- NOTE | 2016-10-27 07:17 | Oncology Progress Note ---
Oncology Subjective PN Interval history: Patient was seen briefly this morning appears to be resting without change. I had a private conversation with her . They are requesting Dr. Temple to see tomorrow when he is available. Hopefully we will have some additional pathologic information to accurately subtype the lymphoma. It does appear to be an aggressive cell type based on rapid growth. I am going to go ahead and order a CT of the chest abdomen pelvis for further staging. I have explained that a PET scan is for outpatient purposes only. I have discussed probable [facility] Rituxan in the setting of a large cell lymphoma. Exam - Constitutional Vitals: Period Temp Pulse Resp BP Sys/Mcwilliams Pulse Ox Last 24 Hr 97.3 F-100.2 F 68-115 18-24 91-127/63-80 92-100 Results - Labs CBC & BMP: 10/26/16 04:12 10/26/16 04:12 Specialty Discharge - Follow Up or Referrals Follow up with: Meek Hendricks DO [Physician] - (Call office if needed)
[2016-10-27] MEDS: fentaNYL 50 MCG/HR PATCH TRANSDERM SCH (10:07)
--- NOTE | 2016-10-27 11:13 | Hospitalist Progress Note ---
Assessment and Plan (1) Non-Hodgkin lymphoma Status: Acute Assessment and plan: Patient with non-Hodgkin lymphoma with subtyping is pending. Diagnostic and therapeutic plan per oncology Current Visit: Yes (2) Anemia Status: Chronic Assessment and plan: Remained overall stable Current Visit: No (3) CVA (cerebral vascular accident) Status: Chronic Assessment and plan: No change Current Visit: No (4) Seizures Status: Chronic Assessment and plan: No recent seizures documented Current Visit: No (5) Leukocytosis Status: Acute Assessment and plan: Mild leukocytosis noted today on lab work patient is afebrile. We'll order a CBC in the a.m. to follow-up. and watch Current Visit: Yes Hospitalist: Subjective Interval history: Ms. Goddard is a 51 year old female was admitted on 10/06/2016 for episode of cold clammy nausea and vomiting and left-sided neck swelling is out of any fever. Initially she was in the ICU but then is transferred to the regular ann. She was on antibiotics initially but had been discontinued. She underwent biopsy of a neck mass and recently revealed to be CD20 positive non- Hodgkin lymphoma. Further subtyping is pending . Dr. Cabello ( had conversation with the patient's today it is came thorax abdomen and pelvis planned. Dr. Dunne to see patient tomorrow per the request . Patient afebrile unable to describe any subjective symptoms Exam - Constitutional Vitals: Period Temp Pulse Resp BP Sys/Mcwilliams Pulse Ox Last 24 Hr 97.3 F-100.2 F 68-115 18-24 91-127/65-80 92-99 General appearance: no acute distress - Respiratory Respiratory exam: Present: rhonchi (equal air entry bilaterally with few rhonchi ). Absent: accessory muscle use - Cardiovascular Cardiovascular exam: Present: regular rate and rhythm. Absent: tachycardia - GI/Abdominal GI/Abdominal exam: Present: normal bowel sounds, soft. Absent: distended, tenderness - Neurological Exam Neurological exam: Present: alert Results - Labs CBC & BMP: 10/26/16 04:12 10/26/16 04:12 Lab Results: I have reviewed the past 24 hour labs Specialty Discharge - Follow Up or Referrals Follow up with: Meek Hendricks DO [Physician] - (Call office if needed)
--- NOTE | 2016-10-27 12:15 | CT Report ---
Exam:CT chest w con Date:10/27/2016 7:13 AM Indication:Lymphoma staging Comparison:None Technical: Images were obtained from the thoracic inlet through the lung bases with 100 cc of contrast. Axial sagittal coronal imaging. Axial sagittal and coronal imaging was available for review. Dose reduction was performed with decreasing kv and mA and automated exposure Total DLP: 2462.5 mGy*cm Findings: The thyroid gland reveals tiny area of decreased attenuation measuring approximately 12 mm in the left lobe of the thyroid gland. The right lobe is unremarkable. The trachea and esophagus are unremarkable. The anterior middle and posterior mediastinum are intact. The exam reveals a small supraclavicular node suspected. This measures approximately 2.3 cm No significant axillary adenopathy present. The heart and pulmonary artery are unremarkable. ASVD is present in the aorta. The lungs are initially with some basilar atelectatic change and/or interstitial infiltrates bilaterally The bony structures are unremarkable. Impression: 1. Mild interstitial infiltrates and atelectatic change present bilaterally 2. Small node present in the left supraclavicular region 3. Small nodule suggest a cyst in the left lower thyroid gland measuring 11.7 mm Exam: CT abdomen pelvis w con Date: 10/27/2016 7:13 AM Comparison: None Indication: Lymphoma staging Total DLP: mGy*cm Technical: Images were performed in conjunction with the CT scan of the chest above Images were obtained from the lung bases to the iliac crest continuation through the pelvis with 100 cc of Omnipaque 350 with axial sagittal coronal imaging available for review. Dose reduction was performed with decreasing kv and mA and automated exposure Findings: Liver and Spleen: Liver hepatic and portal veins are demonstrated. There is an area of low density in the liver in the right hepatic lobe measuring 17 mm inferiorly with a small area in the lowest aspect of the liver anteriorly measuring 11 mm. Tiny low-density present in the central aspect of the spleen with multiple small low-density areas present. Low densities are present in the anterior aspect of the spleen as well. No obvious splenomegaly present the spleen measures approximately 12 cm Gallbladder and Pancreas: Unremarkable Adrenals: Unremarkable Kidneys: Both kidneys are equally perfused and demonstrate no evidence for obstructive uropathy. Stomach:Gastrostomy PEG tube is present within the stomach Retroperitoneum: Small tiny nodes present para-aortic region less than 1 cm in size Aorta and IVC: No obvious aneurysm the iliac vessels and IVC revealed no significant abnormalities. Bowel and Mesentery: Contrast is present within the small bowel. There are minimal contrast in the cecal region. Moderate diverticular changes present in the rectosigmoid colon . No evidence of diverticulitis present. Pelvis: Bladder: Partially distended with contrast the possibility of a mass in the posterior right margin of the bladder cannot be excluded with the filling defect present this area measures approximately 3.6 cm x 1.5 cm. Fluid: No free fluid identified. Lymph nodes: No significant bulky adenopathy in the inguinal regions or pelvic sidewall region. Pelvic organs: Previous hysterectomy and oophorectomy suspected with phleboliths the true pelvis. Osseous structures: Degenerative change present at L5-S1 with disc space narrowing. Mild facet arthropathy is present. Impression: 1. Small shotty nodes in the para-aortic region no bulky adenopathy within the abdomen or pelvis 2. Gastrostomy PEG tube 3. Diverticulosis 4. Small tiny low-density nodules cystic and appear in the lower right hepatic lobe and scattered areas of nodular density are present in the spleen that have cystic characteristics 5. Question mass lesion in the posterior right margin of the bladder with filling defect present measuring up to 3.6 cm. PROCEDURE INTERPRETED AT [facility] DEPARTMENT OF RADIOLOGY Final Report Signed by: Dr. Soren Molina
[2016-10-27] MEDS: ACYCLOVIR 200 MG CAPSULE PO SCH ×2 (13:27→20:27)
[2016-10-27] MEDS: METHOCARBAMOL 750 MG TABLET PO SCH ×2 (13:27→20:28)
[2016-10-27] MEDS: guaiFENesin/DM ER 600-30 MG TABLET PO SCH ×2 (13:27→20:27)
[2016-10-27] MEDS: PANTOPRAZOLE 40 MG TABLET PO SCH (13:40)
[2016-10-27] MEDS: DEXTROAMPHETAMINE PO SCH (13:40)
[2016-10-27] MEDS: AMPHETAMINE PO SCH (13:40)
[2016-10-27] MEDS: levETIRAcetam 500 MG TABLET PO SCH ×2 (13:40→20:27)
[2016-10-27] MEDS: ATORVASTATIN 10 MG TABLET PO SCH (20:28)
[2016-10-27] MEDS: AMITRIPTYLINE 10 MG TABLET PO SCH (20:28)
[2016-10-27] MEDS: diphenhydrAMINE CAP 50 MG CAPSULE PO PRN (20:28)
[2016-10-27] MEDS: oxyCODONE/ACETAMINOPHEN 5-325 MG TABLET PO PRN (21:21)
[2016-10-28] MEDS: ALBUTEROL 0.63 MG/3 ML NEB RESP TX SCH ×6 (00:10→19:24)
[2016-10-28 04:58] LABS: Basophils % 0.4 % (0.0-0.8); Eosinophils # 0.1 10*3/uL (0.0-0.87); Eosinophils % 1.6 % (0.00-10.9); Hemoglobin 9.9 GM/DL (12.0-16.0); Immature Granulocytes % 0.4 %; Immature Granulocytes Absolute 0.04 #; Lymphocytes # 1.5 10*3/uL (1.4-4.0); Lymphocytes % 16.9 % (21.3-54.2); Mean Corpuscular HGB Conc 30.9 GM/DL (32-36); Mean Corpuscular Hemoglobin 26 PG (27-34); Mean Corpuscular Volume 84.7 FL (87-102); Mean Platelet Volume 9.6 FL (9.6-12.0); Monocytes # 0.9 10*3/uL (0.11-0.8); Monocytes % 9.5 % (1.7-12.7); Neutrophils # 6.4 10*3/uL (1.4-7.4); Neutrophils % 71.2 % (38.7-73.9); Platelet Count 465 10*3/uL (130-400); Red Blood Count 3.78 10*6/uL (3.8-5.5); Red Cell Distribution Width 15.1 % (9.3-17.3); White Blood Count 8.9 10*3/uL (4.5-13.71)
[2016-10-28 05:29] LABS: Calcium 8.9 MG/DL (8.5-10.1); Osmolality,Calculated 278.3 MOS/KG (273-304); Potassium 4.3 MMOL/L (3.5-5.1)
[2016-10-28] MEDS: fentaNYL 100 MCG/2 ML VIAL IV SCH ×5 (06:16→23:14)
[2016-10-28] MEDS: levETIRAcetam 500 MG TABLET PO SCH ×2 (09:09→20:24)
[2016-10-28] MEDS: ACYCLOVIR 200 MG CAPSULE PO SCH ×2 (09:09→20:20)
[2016-10-28] MEDS: guaiFENesin/DM ER 600-30 MG TABLET PO SCH ×2 (09:09→20:20)
[2016-10-28] MEDS: METHOCARBAMOL 750 MG TABLET PO SCH ×2 (09:09→20:22)
[2016-10-28] MEDS: PANTOPRAZOLE 40 MG TABLET PO SCH (09:09)
--- NOTE | 2016-10-28 09:44 | Oncology Progress Note ---
Oncology Subjective PN Interval history: Ms. Goddard has a CD20 positive myeloma. Additional studies are pending. Depending on the results of the additional flow cytometry and cytogenetics, we will make recommendations concerning her treatment. If this is a low-grade, small lymphocytic lymphoma, we may be able to use Rituxan and IBRUTINIB. If it is a large cell lymphoma, Dr. Cabello has already mentioned using Cytoxan, Adriamycin, vincristine, prednisone and Rituxan. We will await the final pathology report. I will follow with you. Thank you. Exam - Constitutional Vitals: Period Temp Pulse Resp BP Sys/Mcwilliams Pulse Ox Last 24 Hr 97.8 F-99.3 F 84-115 18-22 96-108/69-73 90-99 Results - Labs CBC & BMP: 10/28/16 04:25 10/28/16 04:25 Specialty Discharge - Follow Up or Referrals Follow up with: Meek Hendricks DO [Physician] - (Call office if needed)
[2016-10-28] MEDS: AMPHETAMINE PO SCH (12:07)
[2016-10-28] MEDS: DEXTROAMPHETAMINE PO SCH (12:07)
--- NOTE | 2016-10-28 16:47 | Hospitalist Progress Note ---
Assessment and Plan (1) Non-Hodgkin lymphoma Status: Acute Assessment and plan: 1)lymphoma- awaiting final path studies for treatment plan per onc. 2)seizures- on meds. 3)aphasia from stroke 4)anemia- stable 5)low grade fever- monitor Current Visit: Yes (2) Seizures Status: Chronic Current Visit: No (3) UTI (urinary tract infection) Status: Acute Current Visit: No (4) Aphasia as late effect of cerebrovascular accident (CVA) Status: Chronic Current Visit: Yes (5) Bilateral pneumonia Status: Acute Current Visit: Yes (6) Leukocytosis Status: Acute Current Visit: Yes Hospitalist: Subjective Interval history: Mrs Goddard is doing ok today. She has a low grade fever. Denies shortness of breath or pain. Her friend is at the bedside. She reports she had a good breakfast but only ate a few bites of lunch. Exam - Constitutional Vitals: Period Temp Pulse Resp BP Sys/Mcwilliams Pulse Ox Last 24 Hr 97.8 F-99.3 F 85-115 16-22 83-107/56-71 89-100 General appearance: no acute distress, over weight - Eye Eye exam: Present: EOMI. Absent: scleral icterus - Respiratory Respiratory exam: Present: clear to auscultation bilaterally - Cardiovascular Cardiovascular exam: Present: regular rate and rhythm - GI/Abdominal GI/Abdominal exam: Present: normal bowel sounds, soft. Absent: tenderness - Extremities Exam Extremities exam: Absent: edema Results - Labs CBC & BMP: 10/28/16 04:25 10/28/16 04:25 Lab Results: I have reviewed the past 24 hour labs Specialty Discharge - Follow Up or Referrals Follow up with: Meek Hendricks DO [Physician] - (Call office if needed)
[2016-10-28] MEDS: AMITRIPTYLINE 10 MG TABLET PO SCH (20:21)
[2016-10-28] MEDS: ATORVASTATIN 10 MG TABLET PO SCH (20:22)
[2016-10-29] MEDS: ALBUTEROL 0.63 MG/3 ML NEB RESP TX SCH ×7 (03:20→20:19)
[2016-10-29] MEDS: fentaNYL 100 MCG/2 ML VIAL IV SCH ×5 (06:21→23:26)
--- NOTE | 2016-10-29 07:26 | Oncology Progress Note ---
Oncology Subjective PN Interval history: Spencer is not working. This is delayed and impeded patient care. We are still awaiting the results of the final pathology report on this patient. I am considering proceeding with Rituxan today while awaiting the results of the additional studies. I discussed the patient's case with the pathologist. They are going to check to see if any additional information can be provided on her case. I am also considering proceeding with Rituxan while we wait. I placed a consult to Dr. STANTON for Mediport placement and I will probably proceed with Rituxan tomorrow. I have provided information to the patient and her on Rituxan from up-to-date. Exam - Constitutional Vitals: Period Temp Pulse Resp BP Sys/Mcwilliams Pulse Ox Last 24 Hr 97.7 F-99.4 F 78-115 16-20 83-116/56-74 89-100 Results - Labs CBC & BMP: 10/28/16 04:25 10/28/16 04:25 Specialty Discharge - Follow Up or Referrals Follow up with: Meek Hendricks DO [Physician] - (Call office if needed)
[2016-10-29] MEDS: DEXTROAMPHETAMINE PO SCH (09:13)
[2016-10-29] MEDS: ACYCLOVIR 200 MG CAPSULE PO SCH ×2 (09:13→21:46)
[2016-10-29] MEDS: PANTOPRAZOLE 40 MG TABLET PO SCH (09:13)
[2016-10-29] MEDS: AMPHETAMINE PO SCH (09:13)
[2016-10-29] MEDS: METHOCARBAMOL 750 MG TABLET PO SCH ×2 (09:13→21:46)
[2016-10-29] MEDS: levETIRAcetam 500 MG TABLET PO SCH ×2 (09:13→21:47)
[2016-10-29] MEDS: guaiFENesin/DM ER 600-30 MG TABLET PO SCH ×2 (09:14→21:46)
[2016-10-29] MEDS: diphenhydrAMINE CAP 50 MG CAPSULE PO PRN ×2 (09:16→22:05)
--- NOTE | 2016-10-29 09:26 | Hospitalist Progress Note ---
Assessment and Plan (1) CVA (cerebral vascular accident) Status: Chronic Assessment and plan: Residual right hemiplegia and expressive aphasia with initial acute decompressive craniotomy. Current Visit: No (2) Non-Hodgkin lymphoma Status: Acute Assessment and plan: Treatment plan initiated by Oncology Current Visit: Yes Hospitalist: Subjective Interval history: 51 yo female with hemorrhagic dominant hemispheric CVA with dense residual neurologic deficit. At repair of prior decompressive craniotomy site had respiratory issues with tracheostomy and PEG placement. While in rehabilation noted to have swelling in neck area. Biopsy is positive for presumptive B cell lymphoma with final typing pending. Anticipated for port placement and initiation of Rituxan. She is alert, aphasic with stable overnight vital signs. Exam - Constitutional Vitals: Period Temp Pulse Resp BP Sys/Mcwilliams Pulse Ox Last 24 Hr 97.7 F-99.4 F 78-115 16-20 83-116/57-74 89-100 General appearance: normal weight - Respiratory Respiratory exam: Present: clear to auscultation bilaterally. Absent: rales, rhonchi, wheezes - Cardiovascular Cardiovascular exam: Present: regular rate and rhythm - GI/Abdominal GI/Abdominal exam: Present: normal bowel sounds - Extremities Exam Extremities exam: Present: other (mild reticularis pattern right foot (variably present)). Absent: edema - Neurological Exam Neurological exam: Present: alert Results - Labs CBC & BMP: 10/28/16 04:25 10/28/16 04:25 Specialty Discharge - Follow Up or Referrals Follow up with: Meek Hendricks DO [Physician] - (Call office if needed)
[2016-10-29] MEDS ORDERED: ceFAZolin 2,000 MG in PREMIX 1 EACH IV ONE (12:58)
--- NOTE | 2016-10-29 13:01 | General Surgery Consult Note ---
Assessment and Plan (1) Malignant lymphoma Status: Acute Assessment and plan: Plan for Mediport placement tomorrow. This is been discussed with the patient and her in the room. Current Visit: Yes History of Present Illness Chief complaint: lymphoma History of present illness: Ms. Goddard is a 51 year old female who was admitted to the hospital and diagnosed with lymphoma and she has a history of recent major stroke with residual deficit and feeding gastrostomy tube. I have been asked to see her for Mediport placement. Home Medications Medication Instructions Recorded Confirmed Type RX: Acyclovir [Acyclovir Cap/Tab] 400 mg PO BID 03/17/15 10/06/16 History RX: Amitriptyline [Elavil] 20 mg PO BEDTIME 03/17/15 10/06/16 History RX: Dextroamphetamine/Amphetamine 30 mg PO AC BREAKFAST 03/17/15 10/06/16 History [Adderall XR] RX: Loratadine [Claritin] 10 mg PO DAILY PRN 03/17/15 10/06/16 History RX: Methocarbamol Tab [Robaxin Tab] 750 mg PO BID 03/17/15 10/06/16 History RX: Atorvastatin [Lipitor] 10 mg PO BEDTIME 09/18/16 10/06/16 History RX: Naproxen [Naprosyn Tab] 500 mg PO DAILY 09/18/16 10/06/16 History RX: Pantoprazole Tab [Protonix Tab] 40 mg PO DAILY 09/18/16 10/06/16 History RX: guaiFENesin/DM ER 600-30 1 tablet PO BID 09/18/16 10/06/16 History [Mucinex Dm 600-30 MG] RX: levETIRAcetam [Levetiracetam] 1,000 mg PO BID 09/18/16 10/06/16 History RX: Acetaminophen [Acetaminophen 650 mg PO Q6H PRN 10/06/16 10/06/16 History ER Tab] RX: Alum/Mag/Simeth Max Str Liquid 30 ml PO Q6H PRN 10/06/16 10/06/16 History [Mylanta Max Strength Liquid] RX: Enoxaparin Sodium 40 mg SUBCUT Q24H 10/06/16 10/06/16 History RX: HYDROcodone/ACETAMIN 5-325 2 tablet PO Q6H PRN 10/06/16 10/06/16 History [[place] 5-325] RX: Magnesium Hydroxide Susp [Milk 30 ml PO DAILY PRN 10/06/16 10/06/16 History of Magnesia] RX: Nitrofurantoin Macro/[place] 100 mg PO BID 10/06/16 10/06/16 History [Macrobid] RX: Ondansetron HCl/Pf 4 mg IJ Q6H PRN 10/06/16 10/06/16 History [Ondansetron 4 mg/2 ml Ampule] RX: Ondansetron Tab [Zofran Tab] 4 mg PO Q6H PRN 10/06/16 10/06/16 History RX: Polyethylene Glycol Powder 17 gm PO DAILY PRN 10/06/16 10/06/16 History [Miralax] RX: Hydrocodone/Acetaminophen 1 each PO Q6H PRN #30 tablet 10/10/16 Rx [Hydrocodon-Acetaminophen 5-325] oxyCODONE/ACETAMINOPHEN 5-325 1 tablet PO Q6H #30 tablet 10/10/16 Rx [Percocet 5-325] Allergies Allergy/AdvReac Type Severity Reaction Status Date / Time No Known Allergies Allergy Verified 03/17/15 13:59 Medical,Surgical,& Family Hx - Medical History Cardio: History of: Hypertension Psychological: History of: ADHD, Depression Neurology: History of: Cerebral Hemorrhage, Cerebrovascular Accident (February 2016) , Migraine, Seizures (after stroke in hospital), TIA (possible in past?) No history of: Cerebral Palsy, Dementia, Parkinson's Disease, Peripheral Neuropathy, Vertigo, Neurologocal Cancer HEENT: History of: HEENT Problems (old trach. just d/c'd in september 2016) Rheumatology: History of;: Fibromyalgia Respiratory: History of: Intubation, Pneumonia Genitourinary: History of: Recurring Urinary Tract Infections Gastrointestinal: History of: GI Problems (Lactose intolerant) Musculoskeletal: History of: Musculoskeletal Problems (fibromyalgia) Other: History of: Miscellaneous Medical Problems (narcolepsy) - Surgical History Cardiac Surgeries: Sugical HX of: Cardiac Catheterization (x2) Neurologic Surgeries: Surgical HX of: Cerebral Hemorrhage, Neurologic Surgery ( crainiotomy) Abdominal Surgeries: Patient denies: Abdominal Surgery Reproductive Surgeries: Surgical HX of;: Hysterectomy Patient denies;: Genitourinary Surgery, Gynecologic Surgery - Family History Family History: Reports;: Family Cancer (BROTHER), Family Diabetes (FATHER), Family Heart Disease (father and brother), Family Hypertension (MOTHER AND FATHER), Family Stroke (FAHTER) - Social History Smoking Status: Smoker, status unknown Frequency of Alcohol Use: None Type of Drug Use: None - Constitutional Constitutional: Present: as per HPI - EENT Nose, mouth and throat: Present: as per HPI - Cardiovascular Cardiovascular: Present: as per HPI - Respiratory Respiratory: Present: as per HPI - Gastrointestinal Gastrointestinal: Present: as per HPI - Genitourinary Genitourinary: Present: as per HPI - Musculoskeletal Musculoskeletal: Present: as per HPI - Neurological Neurological: Present: as per HPI - Endocrine Endocrine: Present: as per HPI Hematologic/Lymphatic: Present: as per HPI Exam - Constitutional Vitals: Period Temp Pulse Resp BP Sys/Mcwilliams Pulse Ox Last 24 Hr 97.7 F-99.4 F 78-115 16-20 83-116/57-74 92-100 General appearance: no acute distress, over weight - Head Head exam: Present: normal inspection - Eye Eye exam: Present: EOMI - ENT ENT exam: Present: normal exam Mouth exam: Present: normal external inspection - Neck Neck exam: Present: lymphadenopathy, other (prior tracheostomy) - Respiratory Respiratory exam: Absent: accessory muscle use, chest wall tenderness - Cardiovascular Cardiovascular exam: Present: RRR. Absent: systolic murmur, tachycardia - GI/Abdominal GI/Abdominal exam: Present: soft. Absent: distended - Extremities Exam Extremities exam: Present: normal inspection - Neurological Exam Neurological exam: Present: alert Results - Labs CBC & BMP: 10/28/16 04:25 10/28/16 04:25 Specialty Discharge - Follow Up or Referrals Follow up with: Meek Hendricks DO [Physician] - (Call office if needed)
[2016-10-29] MEDS: oxyCODONE/ACETAMINOPHEN 5-325 MG TABLET PO PRN (13:34)
[2016-10-29] MEDS: LACTATED RINGERS 1,000 ML IV SCH (21:46)
[2016-10-29] MEDS: ATORVASTATIN 10 MG TABLET PO SCH (21:46)
[2016-10-29] MEDS: AMITRIPTYLINE 10 MG TABLET PO SCH (21:46)
[2016-10-30] MEDS: ALBUTEROL 0.63 MG/3 ML NEB RESP TX SCH ×6 (00:18→19:43)
[2016-10-30] MEDS: LACTATED RINGERS 1,000 ML IV SCH ×2 (01:20→12:17)
[2016-10-30] MEDS ORDERED: FAMOTIDINE 20 MG/2 ML VIAL IV ONE (06:30)
[2016-10-30] MEDS: fentaNYL 100 MCG/2 ML VIAL IV SCH ×5 (06:48→22:38)
--- NOTE | 2016-10-30 07:31 | General Surgery Progress Note ---
Assessment and Plan (1) Malignant lymphoma Status: Acute Assessment and plan: Plan for Mediport placement today. Current Visit: Yes Subjective Patient reports: Present: no new complaints Exam - Constitutional Vitals: Period Temp Pulse Resp BP Sys/Mcwilliams Pulse Ox Last 24 Hr 96.5 F-98.6 F 96-110 16-24 90-117/60-79 93-100 General appearance: no acute distress, over weight - Head Head exam: Present: normal inspection, normocephalic - Eye Eye exam: Present: EOMI Pupils: Present: DUSTIN - ENT ENT exam: Present: normal exam Mouth exam: Present: normal external inspection, normal voice - Neck Neck exam: Present: trachea midline - Respiratory Respiratory exam: Present: clear to auscultation bilaterally. Absent: accessory muscle use, chest wall tenderness - Cardiovascular Cardiovascular exam: Present: RRR. Absent: systolic murmur, tachycardia - GI/Abdominal GI/Abdominal exam: Present: soft. Absent: tenderness, rebound - Extremities Exam Extremities exam: Present: normal inspection - Neurological Exam Neurological exam: Present: alert - Skin Skin exam: Present: normal color, warm Results - Labs CBC & BMP: 10/28/16 04:25 10/28/16 04:25 Specialty Discharge - Follow Up or Referrals Follow up with: Meek Hendricks DO [Physician] - (Call office if needed)
--- NOTE | 2016-10-30 07:38 | Oncology Progress Note ---
Oncology Subjective PN Interval history: The pathology report finally came to my office yesterday. I do not know whether it has been loaded on to this electronic medical record here or not. This is a diffuse large cell non-Hodgkin's lymphoma that we will need to treat with Cytoxan, Adriamycin, vincristine and prednisone. I have given the patient information on diffuse large cell non-Hodgkin's lymphoma as well as Cytoxan, Adriamycin, vincristine and Rituxan. My plan is to start chemotherapy tomorrow. I have verbally instructed the patient nurse and the nursing staff that I plan to institute chemotherapy starting tomorrow and that the patient will need to be moved to 4 E. Exam - Constitutional Vitals: Period Temp Pulse Resp BP Sys/Mcwilliams Pulse Ox Last 24 Hr 96.5 F-98.6 F 96-110 16-24 90-117/60-79 93-100 Results - Labs CBC & BMP: 10/28/16 04:25 10/28/16 04:25 Specialty Discharge - Follow Up or Referrals Follow up with: Meek Hendricks DO [Physician] - (Call office if needed)
[2016-10-30] MEDS ORDERED: HEPARIN 5,000 UNIT/1 ML VIAL ONE (08:18)
[2016-10-30] MEDS ORDERED: BUPIVACAINE MPF 0.25% /EPI 30 ML VIAL ONE (08:18)
[2016-10-30] MEDS ORDERED: LIDOCAINE 1%/EPI INJ 20 ML VIAL ONE (08:18)
[2016-10-30] MEDS ORDERED: PROPOFOL 200 MG/20 ML VIAL IV ONE (08:33)
[2016-10-30] MEDS ORDERED: ceFAZolin 1,000 MG VIAL ONE (08:55)
--- NOTE | 2016-10-30 09:28 | Operative Note ---
Date of procedure: 10/30/16 Pre-op diagnosis: lymphoma Post-op diagnosis: same Procedure: Preoperative diagnosis Lymphoma Postoperative diagnosis Same Procedures performed Right sided cephalic vein cutdown Mediport placement Fluoroscopic guidance and interpretation of images Findings The cephalic vein is cannulated and the Mediport catheter was placed directly into the venotomy. Fluoroscopy confirmed placement of the catheter at the cavoatrial junction and the superior vena cava. The Mediport was left accessed. It was flushed with heparin. Complications None apparent Specimen None Anesthesia Monitored with local Blood loss 5 mL Indication Lymphoma Description of procedure The patient was taken to the operating room and transferred to the operating table in the supine position. Pressure points were padded and SCDs placed lower extremities. Monitored anesthesia was administered and the neck and chest was prepped chlorhexidine after the arms were tucked. Preoperative antibiotics were administered and a timeout was performed. Local anesthetic was administered in the deltopectoral groove and an incision was made with a 15 blade scalpel. Bovie electrocautery was used to dissected just above the pectoralis muscle into the deltopectoral fat pad where the cephalic vein was identified and controlled with 3-0 Vicryl ties. The distal tie was tied down and the proximal tie was used for retraction. A venotomy was made with an 11 blade scalpel and the Mediport catheter was inserted into the cephalic vein. The catheter was then threaded under fluoroscopic guidance into the superior vena cava. It returned blood easily and was flushed with heparinized saline. The distal tie was then tied down around the catheter within the vein and the Mediport pocket was created with Bovie electrocautery just below the dermis on the anterior chest wall skin. The Mediport catheter was then cut and secured to the Mediport and the flange was secured to the head. The Mediport was secured in the Mediport pocket with 3-0 Vicryl ties 3. The skin incision was irrigated and closed with a 4-0 Monocryl running subcuticular suture and sterile skin glue was applied. A Leo needle was used to access the Mediport and it was connected to IV tubing through Mediport access kit. This system was flushed with heparin after it was aspirated and returned blood easily. A sterile dressing was applied over the Mediport catheter access site. Patient was awakened from anesthesia and transferred to recovery. Postoperative plan Follow up as needed Implants: mediport catheter Anesthesia: MAC, local Surgeon / Physician: Brigido Dempsey Estimated blood loss: minimal (5 mL) Specimens: none sent Condition: stable Disposition: PACU Results - Labs CBC & BMP: 10/28/16 04:25 10/28/16 04:25 Discharge Plan - Discharge Data Disposition: Disch/Xfer-Ip Rehab Fac - Discharge Medications New oxyCODONE/ACETAMINOPHEN 5-325 [Percocet 5-325] 1 tablet PO Q6H #30 tablet Continue Acyclovir [Acyclovir Cap/Tab] 400 mg PO BID Dextroamphetamine/Amphetamine [Adderall XR] 30 mg PO AC BREAKFAST Amitriptyline [Elavil] 20 mg PO BEDTIME Loratadine [Claritin] 10 mg PO DAILY PRN PRN Reason: Allergy Symptoms Methocarbamol Tab [Robaxin Tab] 750 mg PO BID Polyethylene Glycol Powder [Miralax] 17 gm PO DAILY PRN PRN Reason: Constipation Ondansetron Tab [Zofran Tab] 4 mg PO Q6H PRN PRN Reason: Nausea/Vomiting Nitrofurantoin Macro/[place] [Macrobid] 100 mg PO BID Magnesium Hydroxide Susp [Milk of Magnesia] 30 ml PO DAILY PRN PRN Reason: Indigestion Enoxaparin Sodium 40 mg SUBCUT Q24H Alum/Mag/Simeth Max Str Liquid [Mylanta Max Strength Liquid] 30 ml PO Q6H PRN PRN Reason: Indigestion HYDROcodone/ACETAMIN 5-325 [[place] 5-325] 2 tablet PO Q6H PRN #30 tablet PRN Reason: Pain Ondansetron HCl/Pf [Ondansetron 4 mg/2 ml Ampule] 4 mg IJ Q6H PRN PRN Reason: Nausea/Vomiting Acetaminophen [Acetaminophen ER Tab] 650 mg PO Q6H PRN PRN Reason: Fever Hydrocodone/Acetaminophen [Hydrocodon-Acetaminophen 5-325] 1 each PO Q6H PRN #30 tablet PRN Reason: Pain Moderate (4-7) levETIRAcetam [Levetiracetam] 1,000 mg PO BID Pantoprazole Tab [Protonix Tab] 40 mg PO DAILY Naproxen [Naprosyn Tab] 500 mg PO DAILY guaiFENesin/DM ER 600-30 [Mucinex Dm 600-30 MG] 1 tablet PO BID Atorvastatin [Lipitor] 10 mg PO BEDTIME - Follow Up or Referral Follow Up: Meek Hendricks DO [Physician] - (Call office if needed) - Forms/Instructions Instructions: Lymphadenopathy (GEN)
[2016-10-30] MEDS ORDERED: MIDAZOLAM 2 MG/2 ML VIAL ONE (09:38)
[2016-10-30] MEDS ORDERED: RACEPINEPHRINE 0.5 ML NEB RESP TX ONE ×2 (09:38→09:56)
[2016-10-30] MEDS ORDERED: fentaNYL 100 MCG/2 ML VIAL ONE (09:38)
[2016-10-30 10:19] LABS: ABG Base Excess 3.1 MMOL/L (-2.5-2.5); ABG HCO3 27.6 MMOL/L (20-26); ABG Oxygen Saturation 91.8 % (95-100); ABG PCO2 42.3 MM HG (35-48); ABG PH 7.433 (7.35-7.45); ABG PO2 65.2 MM HG (80-95); ABG TCO2 28.9 MMOL/L (23-27)
--- NOTE | 2016-10-30 10:19 | XRay Report ---
Portable chest. Indication: Postoperative for Mediport placement. A central venous catheter has been placed. Its distal tip is within the SVC. The heart is normal in size. There is bilateral basilar atelectasis, worsened from the previous of October 06, 2016. No pneumothorax. No pleural effusion. The osseous structures present a normal appearance. Impression: Bilateral basilar atelectasis. Satisfactory line placement. No evidence of immediate complication. PROCEDURE INTERPRETED AT [facility] DEPARTMENT OF RADIOLOGY Final Report Signed by: Dr. Cassie Hawkins
[2016-10-30] MEDS: DEXTROAMPHETAMINE PO SCH (11:44)
[2016-10-30] MEDS: AMPHETAMINE PO SCH (11:44)
[2016-10-30] MEDS: guaiFENesin/DM ER 600-30 MG TABLET PO SCH ×2 (11:45→21:42)
[2016-10-30] MEDS: ACYCLOVIR 200 MG CAPSULE PO SCH ×2 (11:45→21:41)
[2016-10-30] MEDS: PANTOPRAZOLE 40 MG TABLET PO SCH (11:45)
[2016-10-30] MEDS: METHOCARBAMOL 750 MG TABLET PO SCH ×2 (11:45→21:42)
[2016-10-30] MEDS: levETIRAcetam 500 MG TABLET PO SCH ×2 (11:45→21:42)
[2016-10-30] MEDS: fentaNYL 50 MCG/HR PATCH TRANSDERM SCH (12:01)
--- NOTE | 2016-10-30 13:42 | Hospitalist Progress Note ---
Assessment and Plan (1) CVA (cerebral vascular accident) Status: Chronic Assessment and plan: Residual right hemiplegia and expressive aphasia with initial acute decompressive craniotomy. Current Visit: No (2) Non-Hodgkin lymphoma Status: Acute Assessment and plan: Treatment plan initiated by Oncology for diffuse large cell non-Hodgkin's lymphoma. Current Visit: Yes Qualifiers: B-cell lymphoma type: diffuse large B-cell Lymphoma site: neck Hospitalist: Subjective Interval history: 51 yo female with intracranial hemorrhage with residual right hemiplegia and expressive aphasia, who was discovered to have swelling in cervical lymph nodes with biopsy showin a diffuse large cell non-Hodgkins lymphoma. Earlier today she had access placed and is anticipated for therapy. Post procedure chest Xray shows appropriate device position with low lung volumes. Exam - Constitutional Vitals: Period Temp Pulse Resp BP Sys/Mcwilliams Pulse Ox Last 24 Hr 96.5 F-98.9 F 96-137 16-28 92-160/60-104 91-100 General appearance: normal weight - Respiratory Respiratory exam: Present: clear to auscultation bilaterally. Absent: rales, rhonchi, wheezes - Cardiovascular Cardiovascular exam: Present: regular rate and rhythm - GI/Abdominal GI/Abdominal exam: Present: normal bowel sounds - Extremities Exam Extremities exam: Absent: edema - Neurological Exam Neurological exam: Present: alert Results - Labs CBC & BMP: 10/28/16 04:25 10/28/16 04:25 Specialty Discharge - Follow Up or Referrals Follow up with: Meek Hendricks DO [Physician] - (Call office if needed)
[2016-10-30] MEDS: oxyCODONE/ACETAMINOPHEN 5-325 MG TABLET PO PRN ×2 (13:48→19:51)
--- NOTE | 2016-10-30 14:32 | Anesthesia ---
Anesthesia Post OP - Post Ansesthetic Evaluation Patient seen in post op: Yes Resp: within normal limits CV: within normal limits Mental: within normal limits Temp: within normal limits [id number]: within normal limits Nausea and Vomiting: within normal limits Pain: within normal limits
--- NOTE | 2016-10-30 16:47 | Interventional Radiology Rpt ---
Exam: IR fluoro guide cv cath Date: 10/30/2016 Indication: Mediport catheter placement Comparison: None Findings: 10.4 seconds fluoroscopy time provided to Dr. Dempsey for placement of a right-sided the subclavian port catheter. The distal tip is in the region of the proximal right atrium. Impression: 1. Satisfactory placement of a right subclavian port catheter PROCEDURE INTERPRETED AT [facility] DEPARTMENT OF RADIOLOGY Final Report Signed by: Dr. Soren Molina
[2016-10-30] MEDS: AMITRIPTYLINE 10 MG TABLET PO SCH (21:41)
[2016-10-30] MEDS: DESITIN 4OZ/NYSTATIN 15 GRAM MIXTURE PASTE TOP SCH (21:42)
[2016-10-30] MEDS: ATORVASTATIN 10 MG TABLET PO SCH (21:42)
[2016-10-31] MEDS: ALBUTEROL 0.63 MG/3 ML NEB RESP TX SCH ×7 (00:38→23:57)
[2016-10-31] MEDS: LACTATED RINGERS 1,000 ML IV SCH ×4 (01:29→18:06)
[2016-10-31] MEDS: fentaNYL 100 MCG/2 ML VIAL IV SCH ×4 (06:23→18:08)
[2016-10-31] MEDS ORDERED: CYCLOPHOSPHAMIDE INJ 1,500 MG in SODIUM CHLORIDE 0.9% 250 ML IV ONE (07:36)
[2016-10-31] MEDS ORDERED: vinCRIStine 2 MG in SYRINGE 1 EACH IV ONE (07:36)
[2016-10-31] MEDS ORDERED: DOXOrubicin 100 MG in SYRINGE 1 EACH IV ONE (07:36)
[2016-10-31] MEDS ORDERED: riTUXimab 500 MG, riTUXimab 250 MG in SODIUM CHLORIDE 0.9% 675 ML IV ONE (07:38)
--- NOTE | 2016-10-31 07:40 | Oncology Progress Note ---
Oncology Subjective PN Interval history: For the record, I have just ordered chemotherapy on this patient to include Cytoxan 1500 mg, Adriamycin 100 mg, vincristine 2 mg and Rituxan 750 mg all to be given intravenously today. I have also ordered Kytril 1 mg daily for 4 days and dexamethasone 20 mg IV daily for 3 days. She has a diffuse large cell CD20 positive non-Hodgkin's lymphoma and she is about to receive her first course of chemotherapy. A Mediport catheter was placed yesterday. This lymphoma is complicated by the fact that she has a dense aphasia from a recent hemorrhagic and subsequently thrombotic stroke that occurred and that was treated elsewhere with craniotomy. She also has severe right arm pain and tenderness that I think are related to the stroke, possibly thalamic pain. She will be on relatively high-dose dexamethasone for the next 3 days and we will see if this improves her condition. She appears to be oriented and alert but she has dense a fascia. Her lungs are clear with normal breath sounds. Heart sounds are normal. Exam - Constitutional Vitals: Period Temp Pulse Resp BP Sys/Mcwilliams Pulse Ox Last 24 Hr 96.7 F-98.9 F 86-137 16-28 92-160/62-104 90-100 Results - Labs CBC & BMP: 10/28/16 04:25 10/28/16 04:25 Specialty Discharge - Follow Up or Referrals Follow up with: Meek Hendricks DO [Physician] - (Call office if needed)
[2016-10-31] MEDS ORDERED: DEXAMETHASONE 10 MG/1 ML VIAL IV SCH (08:00)
[2016-10-31] MEDS ORDERED: DEXAMETHASONE INJ 20 MG in SODIUM CHLORIDE 0.9% 50 ML IV ONE (08:00)
--- NOTE | 2016-10-31 08:28 | Hospitalist Progress Note ---
Assessment and Plan (1) CVA (cerebral vascular accident) Status: Chronic Assessment and plan: Residual right hemiplegia and expressive aphasia with initial acute decompressive craniotomy. Current Visit: No (2) Non-Hodgkin lymphoma Status: Acute Assessment and plan: Treatment plan initiated by Oncology for diffuse large cell non-Hodgkin's lymphoma. Current Visit: Yes Qualifiers: B-cell lymphoma type: diffuse large B-cell Lymphoma site: neck Hospitalist: Subjective Interval history: 51 yo female with intracranial hemorrhage with residual expressive aphasia and right hemiplegia. Complicated course after pentecostalism after decompressive craniotomy. While in rehab noted to have swelling in neck with biopsy showing diffuse large cell non-Hodgkin's lymphoma. To initiate therapy today. Vital stable and afebrile. Exam - Constitutional Vitals: Period Temp Pulse Resp BP Sys/Mcwilliams Pulse Ox Last 24 Hr 96.7 F-98.9 F 86-137 16-28 92-160/62-104 90-100 General appearance: normal weight - Respiratory Respiratory exam: Present: clear to auscultation bilaterally. Absent: rales, rhonchi, wheezes - Cardiovascular Cardiovascular exam: Present: regular rate and rhythm - GI/Abdominal GI/Abdominal exam: Present: normal bowel sounds - Extremities Exam Extremities exam: Absent: edema - Neurological Exam Neurological exam: Present: alert Results - Labs CBC & BMP: 10/28/16 04:25 10/28/16 04:25 Specialty Discharge - Follow Up or Referrals Follow up with: Meek Hendricks DO [Physician] - (Call office if needed)
[2016-10-31] MEDS: diphenhydrAMINE CAP 50 MG CAPSULE PO PRN (09:10)
[2016-10-31] MEDS: levETIRAcetam 500 MG TABLET PO SCH ×2 (09:11→22:12)
[2016-10-31] MEDS: ACYCLOVIR 200 MG CAPSULE PO SCH ×2 (09:11→22:13)
[2016-10-31] MEDS: AMPHETAMINE PO SCH (09:11)
[2016-10-31] MEDS: DEXTROAMPHETAMINE PO SCH (09:11)
[2016-10-31] MEDS: GRANISETRON 1 MG/1 ML VIAL IV SCH (09:11)
[2016-10-31] MEDS: guaiFENesin/DM ER 600-30 MG TABLET PO SCH ×2 (09:11→22:16)
[2016-10-31] MEDS: METHOCARBAMOL 750 MG TABLET PO SCH ×2 (09:11→22:15)
[2016-10-31] MEDS: PANTOPRAZOLE 40 MG TABLET PO SCH (09:12)
[2016-10-31] MEDS: DESITIN 4OZ/NYSTATIN 15 GRAM MIXTURE PASTE TOP SCH (09:12)
[2016-10-31] MEDS: AMITRIPTYLINE 10 MG TABLET PO SCH (22:08)
[2016-10-31] MEDS: ATORVASTATIN 10 MG TABLET PO SCH (22:15)
[2016-11-01] MEDS: ALBUTEROL 0.63 MG/3 ML NEB RESP TX SCH ×5 (03:28→21:35)
[2016-11-01] MEDS: LACTATED RINGERS 1,000 ML IV SCH ×5 (04:07→23:21)
[2016-11-01] MEDS: DESITIN 4OZ/NYSTATIN 15 GRAM MIXTURE PASTE TOP SCH ×3 (04:08→23:22)
[2016-11-01] MEDS: fentaNYL 100 MCG/2 ML VIAL IV SCH ×4 (05:29→18:15)
--- NOTE | 2016-11-01 08:35 | Oncology Progress Note ---
Oncology Subjective PN Interval history: Patient with diffuse large cell CD20 positive non-Hodgkin's lymphoma. Received first course of R-CHOP yesterday. She really has not had any improvement of her lymphoma yet. It should begin to improve shortly. I have ordered lab work for today and the results are pending. These include an LDH and uric acid as well as CMP and CBC. This patient has expressive aphasia and right-sided hemiplegia due to a thrombotic and hemorrhagic stroke that occurred shortly before she was diagnosed with this lymphoma. I am not optimistic that her neurologic deficit is going to improve significantly. She responds when I talk to her. She indicates that she is not having any significant pain. Her oral mucosa is normal. Lids and conjunctivae are normal. She has a persistent large left neck mass. She continues to have a fairly dense right sided paraplegia. Exam - Constitutional Vitals: Period Temp Pulse Resp BP Sys/Mcwilliams Pulse Ox Last 24 Hr 96.4 F-97.7 F 81-107 16-25 85-106/49-61 92-99 Results - Labs CBC & BMP: 10/28/16 04:25 10/28/16 04:25 Specialty Discharge - Follow Up or Referrals Follow up with: Meek Hendricks DO [Physician] - (Call office if needed)
[2016-11-01] MEDS ORDERED: DEXAMETHASONE INJ 20 MG in SODIUM CHLORIDE 0.9% 50 ML IV SCH (09:00)
[2016-11-01] MEDS: GRANISETRON 1 MG/1 ML VIAL IV SCH (10:19)
[2016-11-01] MEDS: METHOCARBAMOL 750 MG TABLET PO SCH ×2 (10:20→22:04)
[2016-11-01] MEDS: levETIRAcetam 500 MG TABLET PO SCH ×2 (10:20→22:05)
[2016-11-01] MEDS: ACYCLOVIR 200 MG CAPSULE PO SCH ×2 (10:20→22:04)
[2016-11-01] MEDS: PANTOPRAZOLE 40 MG TABLET PO SCH (10:23)
[2016-11-01] MEDS: DEXAMETHASONE INJ 20 MG in SODIUM CHLORIDE 0.9% 50 ML IV SCH (10:33)
[2016-11-01 10:42] LABS: Basophils % 0.1 % (0.0-0.8); Hematocrit 32.2 VOL% (35.7-47.0); Hemoglobin 9.7 GM/DL (12.0-16.0); Immature Granulocytes % 0.5 %; Immature Granulocytes Absolute 0.05 #; Lymphocytes # 0.5 10*3/uL (1.4-4.0); Lymphocytes % 5.2 % (21.3-54.2); Mean Corpuscular HGB Conc 30.1 GM/DL (32-36); Mean Corpuscular Hemoglobin 26 PG (27-34); Mean Corpuscular Volume 84.7 FL (87-102); Mean Platelet Volume 9.6 FL (9.6-12.0); Monocytes # 0.4 10*3/uL (0.11-0.8); Monocytes % 3.6 % (1.7-12.7); Neutrophils # 8.9 10*3/uL (1.4-7.4); Neutrophils % 90.6 % (38.7-73.9); Platelet Count 388 10*3/uL (130-400); Red Cell Distribution Width 14.4 % (9.3-17.3); White Blood Count 9.8 10*3/uL (4.5-13.71)
[2016-11-01 11:04] LABS: Band Neutrophils 1 % (0-10); Hypochromasia 1+; Lymphocytes 5 % (20-55); Ovalocytes Slight; Platelet Estimate Adequate; Segmented Neutrophils 88 % (50-85); Total Cells Counted 100
[2016-11-01 11:05] LABS: Alanine Aminotransferase 9 U/L (13-56); Albumin 2.5 G/DL (3.4-5.0); Alkaline Phosphatase 90 U/L (45-117); Aspartate Amino Transferase 16 U/L (0-37); Bilirubin,Total < 0.39 MG/DL (0.2-1.0); Blood Urea Nitrogen 9 MG/DL (7-18); Calcium 8.5 MG/DL (8.5-10.1); Glucose 136 MG/DL (74-106); Potassium 4.2 MMOL/L (3.5-5.1); Sodium 143 MMOL/L (136-145); Total Protein 6.6 G/DL (6.4-8.3); Uric Acid 3.7 MG/DL (2.6-6.0)
[2016-11-01] MEDS: AMPHETAMINE PO SCH (13:47)
[2016-11-01] MEDS: DEXTROAMPHETAMINE PO SCH (13:47)
[2016-11-01] MEDS: guaiFENesin/DM ER 600-30 MG TABLET PO SCH ×2 (13:48→22:03)
--- NOTE | 2016-11-01 19:18 | Hospitalist Progress Note ---
Assessment and Plan (1) CVA (cerebral vascular accident) Status: Chronic Current Visit: No (2) Malignant lymphoma Status: Acute Assessment and plan: Undergoing chemotherapy. Current Visit: Yes (3) Non-Hodgkin lymphoma Status: Acute Assessment and plan: Appreciate input from Dr. Temple. Undergoing chemotherapy. Current Visit: Yes Qualifiers: B-cell lymphoma type: diffuse large B-cell Lymphoma site: neck Hospitalist: Subjective Interval history: Family at the bedside with patient. She has an expressive aphasia. Status post chemotherapy. Continue to follow direction from Dr. Temple. Exam - Constitutional Vitals: Period Temp Pulse Resp BP Sys/Mcwilliams Pulse Ox Last 24 Hr 96.4 F-98 F 65-96 16-25 85-107/51-67 92-100 General appearance: no acute distress - Respiratory Respiratory exam: Present: clear to auscultation bilaterally - Cardiovascular Cardiovascular exam: Present: regular rate and rhythm - GI/Abdominal GI/Abdominal exam: Present: normal bowel sounds Results - Labs CBC & BMP: 11/01/16 09:58 11/01/16 09:57 Specialty Discharge - Follow Up or Referrals Follow up with: Meek Hendricks DO [Physician] - (Call office if needed)
[2016-11-01] MEDS: AMITRIPTYLINE 10 MG TABLET PO SCH (22:01)
[2016-11-01] MEDS: ATORVASTATIN 10 MG TABLET PO SCH (22:02)
[2016-11-02] MEDS: ALBUTEROL 0.63 MG/3 ML NEB RESP TX SCH ×7 (00:45→23:47)
[2016-11-02] MEDS: fentaNYL 100 MCG/2 ML VIAL IV SCH ×2 (01:50→08:47)
[2016-11-02 05:58] LABS: Hematocrit 25.6 VOL% (35.7-47.0); Hemoglobin 8.3 GM/DL (12.0-16.0); Immature Granulocytes % 0.7 %; Immature Granulocytes Absolute 0.05 #; Lymphocytes # 0.5 10*3/uL (1.4-4.0); Lymphocytes % 6.6 % (21.3-54.2); Mean Corpuscular HGB Conc 32.4 GM/DL (32-36); Mean Corpuscular Hemoglobin 28 PG (27-34); Mean Corpuscular Volume 87.7 FL (87-102); Mean Platelet Volume 10.2 FL (9.6-12.0); Monocytes # 0.4 10*3/uL (0.11-0.8); Monocytes % 5.5 % (1.7-12.7); Neutrophils # 6.7 10*3/uL (1.4-7.4); Neutrophils % 87.2 % (38.7-73.9); Platelet Count 391 10*3/uL (130-400); Red Blood Count 2.92 10*6/uL (3.8-5.5); Red Cell Distribution Width 15.4 % (9.3-17.3); White Blood Count 7.7 10*3/uL (4.5-13.71)
[2016-11-02 07:57] LABS: Alanine Aminotransferase < 9 U/L (13-56); Albumin 2.1 G/DL (3.4-5.0); Alkaline Phosphatase 73 U/L (45-117); Aspartate Amino Transferase 12 U/L (0-37); Bilirubin,Total < 0.39 MG/DL (0.2-1.0); Blood Urea Nitrogen 12 MG/DL (7-18); Calcium 8.5 MG/DL (8.5-10.1); Glucose 117 MG/DL (74-106); Osmolality,Calculated 290.6 MOS/KG (273-304); Potassium 4.5 MMOL/L (3.5-5.1); Sodium 146 MMOL/L (136-145); Total Protein 5.7 G/DL (6.4-8.3)
[2016-11-02] MEDS: AMPHETAMINE PO SCH (08:08)
[2016-11-02] MEDS: DEXTROAMPHETAMINE PO SCH (08:08)
--- NOTE | 2016-11-02 08:20 | Hospitalist Progress Note ---
Assessment and Plan (1) CVA (cerebral vascular accident) Status: Chronic Current Visit: No (2) Malignant lymphoma Status: Acute Assessment and plan: Undergoing chemotherapy. Current Visit: Yes (3) Non-Hodgkin lymphoma Status: Acute Assessment and plan: Appreciate input from Dr. Temple. Undergoing chemotherapy. Current Visit: Yes Qualifiers: B-cell lymphoma type: diffuse large B-cell Lymphoma site: neck Hospitalist: Subjective Interval history: The patient sitting up in bed. Family members at the bedside. She appears much more comfortable this morning. She denies any complaints this morning. She has completed her first round of chemotherapy. Exam - Constitutional Vitals: Period Temp Pulse Resp BP Sys/Mcwilliams Pulse Ox Last 24 Hr 96.1 F-98 F 64-78 16-22 87-107/52-67 94-100 General appearance: no acute distress - Eye Eye exam: Present: EOMI Pupils: Present: DUSTIN - Respiratory Respiratory exam: Present: clear to auscultation bilaterally - Cardiovascular Cardiovascular exam: Present: regular rate and rhythm - GI/Abdominal GI/Abdominal exam: Present: normal bowel sounds - Extremities Exam Extremities exam: Present: normal inspection - Neurological Exam Neurological exam: Present: alert - Psychiatric Psychiatric exam: Present: flat affect Results - Labs CBC & BMP: 11/02/16 Unknown 11/02/16 04:00 Specialty Discharge - Follow Up or Referrals Follow up with: Meek Hendricks DO [Physician] - (Call office if needed)
[2016-11-02] MEDS: DESITIN 4OZ/NYSTATIN 15 GRAM MIXTURE PASTE TOP SCH ×2 (08:30→20:00)
--- NOTE | 2016-11-02 09:05 | Oncology Progress Note ---
Assessment and Plan (1) CVA (cerebral vascular accident) Status: Chronic Current Visit: No (2) Status post craniotomy Status: Chronic Current Visit: No (3) Malignant lymphoma Status: Acute Current Visit: Yes Oncology Subjective PN Interval history: Mrs. Bunch has newly diagnosed CVA and large cell lymphoma. She has expressive aphasia secondary to her CVA. She received her first dose of chemotherapy approximately 2 days ago. Her hemoglobin levels are at 8.3 today and we will transfuse these if she drops below 8 or develops any worsening symptoms. She seems stable today. She is not having any fevers. Her family was present at bedside and had no new questions or complaints. On exam she moves her left arm without problems of her right arm appears dysfunctional. Lungs are clear. Her abdomen is soft. Exam - Constitutional Vitals: Period Temp Pulse Resp BP Sys/Mcwilliams Pulse Ox Last 24 Hr 96.1 F-98 F 64-78 16-22 87-107/52-67 94-100 General appearance: normal weight, no acute distress - ENT ENT exam: Present: normal oropharynx - Respiratory Respiratory exam: Present: CTAB. Absent: wheezes Results - Labs CBC & BMP: 11/02/16 Unknown 11/02/16 04:00 Lab Results: I have reviewed the past 24 hour labs Specialty Discharge - Follow Up or Referrals Follow up with: Meek Hendricks DO [Physician] - (Call office if needed)
[2016-11-02] MEDS: DEXAMETHASONE INJ 20 MG in SODIUM CHLORIDE 0.9% 50 ML IV SCH (10:24)
[2016-11-02] MEDS: LACTATED RINGERS 1,000 ML IV SCH ×3 (10:24→23:05)
[2016-11-02] MEDS: GRANISETRON 1 MG/1 ML VIAL IV SCH (10:26)
[2016-11-02] MEDS: fentaNYL 50 MCG/HR PATCH TRANSDERM SCH (10:30)
[2016-11-02] MEDS: levETIRAcetam 500 MG TABLET PO SCH ×2 (10:32→20:47)
[2016-11-02] MEDS: ACYCLOVIR 200 MG CAPSULE PO SCH ×2 (10:34→20:45)
[2016-11-02] MEDS: PANTOPRAZOLE 40 MG TABLET PO SCH (10:35)
[2016-11-02] MEDS: METHOCARBAMOL 750 MG TABLET PO SCH ×2 (10:35→20:46)
[2016-11-02] MEDS: guaiFENesin/DM ER 600-30 MG TABLET PO SCH ×2 (14:31→20:44)
[2016-11-02] MEDS: AMITRIPTYLINE 10 MG TABLET PO SCH (20:44)
[2016-11-02] MEDS: ATORVASTATIN 10 MG TABLET PO SCH (20:46)
[2016-11-03] MEDS: ALBUTEROL 0.63 MG/3 ML NEB RESP TX SCH ×5 (03:34→19:08)
[2016-11-03 05:22] LABS: Hematocrit 27.3 VOL% (35.7-47.0); Hemoglobin 8.3 GM/DL (12.0-16.0); Immature Granulocytes % 0.5 %; Immature Granulocytes Absolute 0.02 #; Lymphocytes # 0.4 10*3/uL (1.4-4.0); Lymphocytes % 8.2 % (21.3-54.2); Mean Corpuscular HGB Conc 30.4 GM/DL (32-36); Mean Corpuscular Hemoglobin 26 PG (27-34); Mean Corpuscular Volume 83.7 FL (87-102); Mean Platelet Volume 10.3 FL (9.6-12.0); Monocytes # 0.2 10*3/uL (0.11-0.8); Monocytes % 4.7 % (1.7-12.7); Neutrophils # 3.7 10*3/uL (1.4-7.4); Neutrophils % 86.6 % (38.7-73.9); Platelet Count 395 10*3/uL (130-400); Red Blood Count 3.26 10*6/uL (3.8-5.5); Red Cell Distribution Width 14.6 % (9.3-17.3); White Blood Count 4.3 10*3/uL (4.5-13.71)
[2016-11-03 05:48] LABS: Alanine Aminotransferase < 6 U/L (13-56); Albumin 2.3 G/DL (3.4-5.0); Alkaline Phosphatase 66 U/L (45-117); Aspartate Amino Transferase 11 U/L (0-37); Blood Urea Nitrogen 12 MG/DL (7-18); Calcium 8.4 MG/DL (8.5-10.1); Glucose 111 MG/DL (74-106); Osmolality,Calculated 286.8 MOS/KG (273-304); Potassium 4.4 MMOL/L (3.5-5.1); Sodium 144 MMOL/L (136-145); Total Protein 5.8 G/DL (6.4-8.3)
[2016-11-03] MEDS: LACTATED RINGERS 1,000 ML IV SCH ×2 (06:40→06:53)
[2016-11-03] MEDS: METHOCARBAMOL 750 MG TABLET PO SCH ×2 (08:53→22:03)
[2016-11-03] MEDS: PANTOPRAZOLE 40 MG TABLET PO SCH (08:54)
[2016-11-03] MEDS: levETIRAcetam 500 MG TABLET PO SCH ×2 (08:54→22:04)
[2016-11-03] MEDS: ACYCLOVIR 200 MG CAPSULE PO SCH ×2 (08:55→22:00)
[2016-11-03] MEDS: guaiFENesin/DM ER 600-30 MG TABLET PO SCH ×2 (08:56→22:11)
[2016-11-03] MEDS: AMPHETAMINE PO SCH (08:56)
[2016-11-03] MEDS: DEXTROAMPHETAMINE PO SCH (08:56)
--- NOTE | 2016-11-03 09:32 | Oncology Progress Note ---
Assessment and Plan (1) CVA (cerebral vascular accident) Status: Chronic Current Visit: No (2) Status post craniotomy Status: Chronic Current Visit: No (3) Malignant lymphoma Status: Acute Current Visit: Yes Oncology Subjective PN Interval history: She is doing well with no new issues. We will discontinue her IV fluids since she seems to be taking in adequate by mouth intake. Her family is present at bedside and states that do not see any new issues. She still has expressive aphasia. She is using her left arm well but her right arm remains immobile. We 'll continue to keep a watch on her blood counts. Her primary oncologist will be back tomorrow. Exam - Constitutional Vitals: Period Temp Pulse Resp BP Sys/Mcwilliams Pulse Ox Last 24 Hr 96.2 F-97.2 F 50-77 15-22 85-101/49-58 93-100 Results - Labs CBC & BMP: 11/03/16 04:00 11/03/16 04:00 Specialty Discharge - Follow Up or Referrals Follow up with: Meek Hendricks DO [Physician] - (Call office if needed)
[2016-11-03] MEDS: DESITIN 4OZ/NYSTATIN 15 GRAM MIXTURE PASTE TOP SCH (10:35)
--- NOTE | 2016-11-03 10:58 | Hospitalist Progress Note ---
Assessment and Plan (1) CVA (cerebral vascular accident) Status: Chronic Current Visit: No (2) Malignant lymphoma Status: Acute Assessment and plan: Undergoing chemotherapy. Current Visit: Yes (3) Non-Hodgkin lymphoma Status: Acute Assessment and plan: Appreciate input from Dr. Temple. Undergoing chemotherapy. Current Visit: Yes Qualifiers: B-cell lymphoma type: diffuse large B-cell Lymphoma site: neck Hospitalist: Subjective Interval history: Patient is resting comfortably no acute changes. Again with expressive aphasia. Appears more comfortable today. Exam - Constitutional Vitals: Period Temp Pulse Resp BP Sys/Mcwilliams Pulse Ox Last 24 Hr 96.2 F-97.2 F 50-77 15-22 85-101/49-58 93-100 General appearance: other (no distress) - Eye Pupils: Present: DUSTIN - Respiratory Respiratory exam: Present: clear to auscultation bilaterally - Cardiovascular Cardiovascular exam: Present: regular rate and rhythm - GI/Abdominal GI/Abdominal exam: Present: normal bowel sounds - Neurological Exam Neurological exam: Present: alert Results - Labs CBC & BMP: 11/03/16 04:00 11/03/16 04:00 Specialty Discharge - Follow Up or Referrals Follow up with: Meek Hendricks DO [Physician] - (Call office if needed)
[2016-11-03] MEDS: AMITRIPTYLINE 10 MG TABLET PO SCH (22:03)
[2016-11-03] MEDS: ATORVASTATIN 10 MG TABLET PO SCH (22:05)
[2016-11-03] MEDS: POLYETHYLENE GLYCOL POWDER 17 GM PACK PO PRN (22:07)
[2016-11-04] MEDS: ALBUTEROL 0.63 MG/3 ML NEB RESP TX SCH ×7 (00:10→23:00)
[2016-11-04] MEDS: DESITIN 4OZ/NYSTATIN 15 GRAM MIXTURE PASTE TOP SCH ×3 (02:17→20:31)
[2016-11-04 06:02] LABS: Basophils % 0.3 % (0.0-0.8); Eosinophils % 0.6 % (0.00-10.9); Hematocrit 28.5 VOL% (35.7-47.0); Hemoglobin 8.8 GM/DL (12.0-16.0); Immature Granulocytes % 0.3 %; Immature Granulocytes Absolute 0.01 #; Lymphocytes # 0.9 10*3/uL (1.4-4.0); Lymphocytes % 24.3 % (21.3-54.2); Mean Corpuscular HGB Conc 30.9 GM/DL (32-36); Mean Corpuscular Hemoglobin 26 PG (27-34); Mean Corpuscular Volume 84.8 FL (87-102); Mean Platelet Volume 10.1 FL (9.6-12.0); Monocytes # 0.1 10*3/uL (0.11-0.8); Monocytes % 1.7 % (1.7-12.7); Neutrophils # 2.6 10*3/uL (1.4-7.4); Neutrophils % 72.8 % (38.7-73.9); Platelet Count 374 10*3/uL (130-400); Red Blood Count 3.36 10*6/uL (3.8-5.5); Red Cell Distribution Width 14.8 % (9.3-17.3); White Blood Count 3.5 10*3/uL (4.5-13.71)
[2016-11-04 06:29] LABS: Albumin 2.3 G/DL (3.4-5.0); Bilirubin,Total 0.6 MG/DL (0.2-1.0); Calcium 7.9 MG/DL (8.5-10.1)
--- NOTE | 2016-11-04 07:46 | Oncology Progress Note ---
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 She received chemotherapy last week consisting of Rituxan, Cytoxan, Adriamycin, vincristine and high-dose dexamethasone. Her white cell count is beginning to fall from the chemotherapy. Her white cell count today is 3500. She continues to have dense a phase and right-sided no-plegia. The left sided cervical adenopathy has shrunk significantly already. Her lungs are clear and her heart sounds are normal. She appears to be oriented and alert but she has an extremely limited vocabulary. Her absolute neutrophil count is 2600 and her total platelet count is 374,000. We are going to monitor her for a while longer. Possible worsening neutropenia and then we will be working on getting her to rehab once again. Her next course of chemotherapy is not due for another 2 weeks. I did explain to her and her family that the total number of chemotherapy doses would probably be between 4 and 8 and that we would give Rituxan with the chemotherapy and possibly for couple of doses after chemotherapy but we would not plan to continue it long-term. Exam - Constitutional Vitals: Period Temp Pulse Resp BP Sys/Mcwilliams Pulse Ox Last 24 Hr 96.2 F-98.2 F 50-93 18-20 82-118/46-58 94-100 Results - Labs CBC & BMP: 11/04/16 04:00 11/04/16 04:00 Specialty Discharge - Follow Up or Referrals Follow up with: Meek Hendricks DO [Physician] - (Call office if needed)
[2016-11-04] MEDS ORDERED: HEPARIN LOCK FLUSH 500 UNIT/5 ML SYRINGE IV ONE (08:13)
[2016-11-04] MEDS: POLYETHYLENE GLYCOL POWDER 17 GM PACK PO PRN (08:27)
[2016-11-04] MEDS: PANTOPRAZOLE 40 MG TABLET PO SCH (08:28)
[2016-11-04] MEDS: METHOCARBAMOL 750 MG TABLET PO SCH ×2 (08:28→20:30)
[2016-11-04] MEDS: levETIRAcetam 500 MG TABLET PO SCH ×2 (08:28→20:30)
[2016-11-04] MEDS: DEXTROAMPHETAMINE PO SCH (08:28)
[2016-11-04] MEDS: AMPHETAMINE PO SCH (08:28)
[2016-11-04] MEDS: ACYCLOVIR 200 MG CAPSULE PO SCH ×2 (08:28→20:30)
[2016-11-04] MEDS: guaiFENesin/DM ER 600-30 MG TABLET PO SCH ×2 (08:30→20:31)
--- NOTE | 2016-11-04 13:51 | Hospitalist Progress Note ---
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 Dr. Temple is following along for her B- cell lymphoma. He is guiding therapy. account services coordinator is working on getting her transferred either to swing bed [facility]. Maybe later on this current week Current Visit: Yes Qualifiers: B-cell lymphoma type: diffuse large B-cell Lymphoma site: neck Hospitalist: Subjective Interval history: Patient has limited vocabulary. She can't really verbalize any complaints. Family reports she had okay night Exam - Constitutional Vitals: Period Temp Pulse Resp BP Sys/Mcwilliams Pulse Ox Last 24 Hr 96.4 F-98.2 F 55-93 18-20 82-118/46-58 94-100 General appearance: over weight - Head Head exam: Present: other (patient has a craniotomy scar) - ENT ENT exam: Present: normal exam - Neck Neck exam: Present: normal inspection - Respiratory Respiratory exam: Present: clear to auscultation bilaterally - Cardiovascular Cardiovascular exam: Present: regular rate and rhythm - GI/Abdominal GI/Abdominal exam: Present: normal bowel sounds - Extremities Exam Extremities exam: Present: normal inspection - Neurological Exam Neurological exam: Present: other (patient's had a little left hemiparesis and aphasia) Results - Labs CBC & BMP: 11/04/16 04:00 11/04/16 04:00 Specialty Discharge - Follow Up or Referrals Follow up with: Meek Hendricks DO [Physician] - (Call office if needed)
[2016-11-04] MEDS: AMITRIPTYLINE 10 MG TABLET PO SCH (20:30)
[2016-11-04] MEDS: ATORVASTATIN 10 MG TABLET PO SCH (20:31)
[2016-11-04] MEDS ORDERED: oxyCODONE/ACETAMINOPHEN 5-325 MG TABLET PO PRN (23:04)
[2016-11-05] MEDS: ALBUTEROL 0.63 MG/3 ML NEB RESP TX SCH ×6 (02:30→23:10)
[2016-11-05] MEDS ORDERED: HEPARIN LOCK FLUSH 500 UNIT/5 ML SYRINGE IV ONE (03:33)
[2016-11-05] MEDS: AMPHETAMINE PO SCH (07:30)
[2016-11-05] MEDS: DEXTROAMPHETAMINE PO SCH (07:30)
--- NOTE | 2016-11-05 08:14 | Oncology Progress Note ---
Oncology Subjective PN Interval history: This patient has diffuse large cell non-Hodgkin's lymphoma. She has now received 1 course of chemotherapy that included Cytoxan 1500 mg, Adriamycin 100 mg, vincristine 2 mg and Rituxan 750 mg all to be given intravenously today. I have also ordered Kytril 1 mg daily for 4 days and dexamethasone 20 mg IV daily for 3 days. Interestingly, the order for the dexamethasone to be given daily for 3 days was not recorded in the orders. This is why I hand write the chemotherapy orders instead of trusting this faulty equipment. Her white cell count is falling. She has a dense right-sided hemiplegia with expressive dysphasia that is fairly severe also. She basically has no vocabulary at all. She will not be due chemotherapy again for about 2 weeks and we are working on rehab for now. I had standing orders for daily CBCs and comprehensive metabolic profiles. They have disappeared from the patient's orders. This is important to the patient's well-being. The patient's white cell count has finally been reported out for today and her white cell count is dropping but is still within the safe range. The lymphadenopathy on the left side of her neck continues to shrink. She continues to have dense dysphagia/apraxia and right-sided hemiplegia but her right arm is not as painful as it once was. I am hoping this is a positive sign that her neurologic deficit may be improving at least a little. We are working on referral to resume physical therapy and occupational therapy. Exam - Constitutional Vitals: Period Temp Pulse Resp BP Sys/Mcwilliams Pulse Ox Last 24 Hr 96.1 F-97.7 F 56-88 14-21 85-99/54-55 94-99 Results - Labs CBC & BMP: 11/05/16 08:15 11/04/16 04:00 Specialty Discharge - Follow Up or Referrals Follow up with: Meek Hendricks DO [Physician] - (Call office if needed)
[2016-11-05 08:39] LABS: Basophils % 0.6 % (0.0-0.8); Eosinophils # 0.1 10*3/uL (0.0-0.87); Eosinophils % 1.8 % (0.00-10.9); Hematocrit 30.5 VOL% (35.7-47.0); Hemoglobin 9.5 GM/DL (12.0-16.0); Immature Granulocytes % 0.3 %; Immature Granulocytes Absolute 0.01 #; Lymphocytes % 31.2 % (21.3-54.2); Mean Corpuscular HGB Conc 31.1 GM/DL (32-36); Mean Corpuscular Hemoglobin 27 PG (27-34); Mean Corpuscular Volume 85.9 FL (87-102); Mean Platelet Volume 9.7 FL (9.6-12.0); Monocytes % 0.6 % (1.7-12.7); Neutrophils # 2.2 10*3/uL (1.4-7.4); Neutrophils % 65.5 % (38.7-73.9); Platelet Count 352 T/CUMM (130-400); Red Blood Count 3.55 MC/CUMM (3.8-5.5); Red Cell Distribution Width 14.8 % (9.3-17.3); White Blood Count 3.3 T/CUMM (4-12)
[2016-11-05 08:59] LABS: Hypochromasia 1+; Lymphocytes 38 % (20-55); Segmented Neutrophils 60 % (50-85); Total Cells Counted 100
[2016-11-05 09:00] LABS: Microcytosis Slight
[2016-11-05 09:01] LABS: Platelet Estimate Normal
[2016-11-05] MEDS: levETIRAcetam 500 MG TABLET PO SCH ×2 (09:29→21:04)
[2016-11-05] MEDS: guaiFENesin/DM ER 600-30 MG TABLET PO SCH ×2 (09:31→21:03)
[2016-11-05] MEDS: PANTOPRAZOLE 40 MG TABLET PO SCH (09:32)
[2016-11-05] MEDS: METHOCARBAMOL 750 MG TABLET PO SCH ×2 (09:32→21:03)
[2016-11-05] MEDS: ACYCLOVIR 200 MG CAPSULE PO SCH ×2 (09:33→21:04)
[2016-11-05 10:02] LABS: Alanine Aminotransferase 18 U/L (13-56); Albumin 2.5 G/DL (3.4-5.0); Alkaline Phosphatase 65 U/L (45-117); Aspartate Amino Transferase 16 U/L (0-37); Bilirubin,Total < 0.39 MG/DL (0.2-1.0); Blood Urea Nitrogen 8 MG/DL (7-18); Calcium 8.6 MG/DL (8.5-10.1); Glucose 87 MG/DL (74-106); Potassium 3.9 MMOL/L (3.5-5.1); Sodium 143 MMOL/L (136-145); Total Protein 5.8 G/DL (6.4-8.3)
[2016-11-05] MEDS: DESITIN 4OZ/NYSTATIN 15 GRAM MIXTURE PASTE TOP SCH ×2 (13:19→21:13)
--- NOTE | 2016-11-05 13:44 | Hospitalist Progress Note ---
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 Dr. Temple is following along for her B- cell lymphoma. He is guiding therapy. rehabilitation services manager is working on getting her transferred either to swing bed [facility] rehabilitation. Maybe later on this current week 11/05/16 psychiatric social worker is working on transferring the patient to [facility]. She'll only be able to be discharged when okay with Dr. Temple. This should be later on this week. We'll continue to monitor daily labs while patient is in the hospital Current Visit: Yes Qualifiers: B-cell lymphoma type: diffuse large B-cell Lymphoma site: neck Hospitalist: Subjective Interval history: No acute events patient does seem more awake today Exam - Constitutional Vitals: Period Temp Pulse Resp BP Sys/Mcwilliams Pulse Ox Last 24 Hr 96.1 F-97.7 F 56-88 14-21 85-99/54-55 94-99 General appearance: over weight - Head Head exam: Present: other (patient has a craniotomy scar) - ENT ENT exam: Present: normal exam - Neck Neck exam: Present: normal inspection - Respiratory Respiratory exam: Present: clear to auscultation bilaterally - Cardiovascular Cardiovascular exam: Present: regular rate and rhythm - GI/Abdominal GI/Abdominal exam: Present: normal bowel sounds - Extremities Exam Extremities exam: Present: normal inspection - Neurological Exam Neurological exam: Present: other (patient's with left hemiparesis and aphasia) Results - Labs CBC & BMP: 11/05/16 08:15 11/05/16 08:15 Specialty Discharge - Follow Up or Referrals Follow up with: Meek Hendricks DO [Physician] - (Call office if needed)
[2016-11-05] MEDS: AMITRIPTYLINE 10 MG TABLET PO SCH (21:03)
[2016-11-05] MEDS: ATORVASTATIN 10 MG TABLET PO SCH (21:03)
[2016-11-06] MEDS: ALBUTEROL 0.63 MG/3 ML NEB RESP TX SCH ×3 (02:30→11:12)
[2016-11-06] MEDS ORDERED: HEPARIN LOCK FLUSH 500 UNIT/5 ML SYRINGE IV ONE ×2 (03:53→08:43)
[2016-11-06 05:06] LABS: Basophils % 0.5 % (0.0-0.8); Hematocrit 30.1 VOL% (35.7-47.0); Hemoglobin 9.4 GM/DL (12.0-16.0); Immature Granulocytes % 0.8 %; Immature Granulocytes Absolute 0.03 #; Lymphocytes % 25.1 % (21.3-54.2); Mean Corpuscular HGB Conc 31.2 GM/DL (32-36); Mean Corpuscular Hemoglobin 26 PG (27-34); Mean Corpuscular Volume 84.6 FL (87-102); Mean Platelet Volume 10.3 FL (9.6-12.0); Monocytes % 0.5 % (1.7-12.7); Neutrophils # 2.8 10*3/uL (1.4-7.4); Neutrophils % 72.1 % (38.7-73.9); Platelet Count 351 T/CUMM (130-400); Red Blood Count 3.56 MC/CUMM (3.8-5.5); Red Cell Distribution Width 14.8 % (9.3-17.3); White Blood Count 3.8 T/CUMM (4-12)
[2016-11-06 05:27] LABS: Albumin 2.5 G/DL (3.4-5.0); Band Neutrophils 1 % (0-10); Bilirubin,Total 1.1 MG/DL (0.2-1.0); Calcium 8.6 MG/DL (8.5-10.1); Hypochromasia 1+; Lymphocytes 31 % (20-55); Microcytosis 1+; Segmented Neutrophils 67 % (50-85); Total Cells Counted 100
[2016-11-06 05:28] LABS: Platelet Estimate Normal
--- NOTE | 2016-11-06 08:13 | Oncology Progress Note ---
Oncology Subjective PN Interval history: The absolute neutrophil count today is 2800. The platelet count is 351,000. This lady is post course #1 of chemotherapy for diffuse large cell on CD20 positive non-Hodgkin's lymphoma.[id number] Exam - Constitutional Vitals: Period Temp Pulse Resp BP Sys/Mcwilliams Pulse Ox Last 24 Hr 96.5 F-97.8 F 64-93 16-20 84-115/49-58 94-100 Results - Labs CBC & BMP: 11/06/16 03:50 11/06/16 03:50 Specialty Discharge - Follow Up or Referrals Follow up with: Meek Hendricks DO [Physician] - (Call office if needed)
[2016-11-06] MEDS: guaiFENesin/DM ER 600-30 MG TABLET PO SCH (08:51)
[2016-11-06] MEDS: levETIRAcetam 500 MG TABLET PO SCH (08:51)
[2016-11-06] MEDS: METHOCARBAMOL 750 MG TABLET PO SCH (08:52)
[2016-11-06] MEDS: PANTOPRAZOLE 40 MG TABLET PO SCH (08:52)
[2016-11-06] MEDS: DEXTROAMPHETAMINE PO SCH (08:52)
[2016-11-06] MEDS: ACYCLOVIR 200 MG CAPSULE PO SCH (08:52)
[2016-11-06] MEDS: AMPHETAMINE PO SCH (08:52)
[2016-11-06] MEDS: DESITIN 4OZ/NYSTATIN 15 GRAM MIXTURE PASTE TOP SCH (08:53)
--- NOTE | 2016-11-06 09:31 | Discharge Summary ---
Hospital Course - Hospital Course Hospital Course: This is a 51-year-old female is been at [facility] after sustaining a hemorrhagic stroke following an ischemic stroke. Her states that he was called on the date of admission to check an episode where she was clammy with associated nausea and vomiting. She had some swelling around the left side of her neck which seem like it worsened when he saw patient. There is no history of fever chest pain, shortness of breath abdominal pain melena hematochezia, emesis. She is a phasic and will obey simple commands.. She is hemiplegic. She had a previous tracheostomy in the past and does receive tube feedings. She was admitted to our hospital for close observation in ICU. She was monitored in ICU because it was concerned that her airway might be compromised. Patient had a ultrasound-guided biopsy L lymph adenopathy of her neck. After the results of the biopsy were 9 oncology was consulted for lymphoma. Lymphoma is a CD20 positive B-cell non-Hodgkin's lymphoma. Patient received her first course of chemotherapy while in the hospital. Arrangements have been made to transfer the patient back to [facility]. She will need a CBC drawn every day. And I do recommend that Dr. Temple be consulted. 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 (4) Malignant lymphoma Status: Acute (5) Non-Hodgkin lymphoma Status: Acute Specialty Discharge - Follow Up or Referrals Follow up with: Meek Hendricks DO [Physician] - (Call office if needed) Jayro Temple MD [Physician] - Discharge Plan - Discharge Data Disposition: Disch/Xfer-Ip Rehab Fac Condition at Discharge: Stable Discharge Diet: advance to your usual diet Activity: resume usual activities as tolerated - Discharge Medications New oxyCODONE/ACETAMINOPHEN 5-325 [Percocet 5-325] 1 tablet PO Q6H #30 tablet Continue Acyclovir [Acyclovir Cap/Tab] 400 mg PO BID Dextroamphetamine/Amphetamine [Adderall XR] 30 mg PO AC BREAKFAST Amitriptyline [Elavil] 20 mg PO BEDTIME Loratadine [Claritin] 10 mg PO DAILY PRN PRN Reason: Allergy Symptoms Methocarbamol Tab [Robaxin Tab] 750 mg PO BID Polyethylene Glycol Powder [Miralax] 17 gm PO DAILY PRN PRN Reason: Constipation Ondansetron Tab [Zofran Tab] 4 mg PO Q6H PRN PRN Reason: Nausea/Vomiting Nitrofurantoin Macro/[place] [Macrobid] 100 mg PO BID Magnesium Hydroxide Susp [Milk of Magnesia] 30 ml PO DAILY PRN PRN Reason: Indigestion Enoxaparin Sodium 40 mg SUBCUT Q24H Alum/Mag/Simeth Max Str Liquid [Mylanta Max Strength Liquid] 30 ml PO Q6H PRN PRN Reason: Indigestion HYDROcodone/ACETAMIN 5-325 [[place] 5-325] 2 tablet PO Q6H PRN #30 tablet PRN Reason: Pain Ondansetron HCl/Pf [Ondansetron 4 mg/2 ml Ampule] 4 mg IJ Q6H PRN PRN Reason: Nausea/Vomiting Acetaminophen [Acetaminophen ER Tab] 650 mg PO Q6H PRN PRN Reason: Fever Hydrocodone/Acetaminophen [Hydrocodon-Acetaminophen 5-325] 1 each PO Q6H PRN #30 tablet PRN Reason: Pain Moderate (4-7) levETIRAcetam [Levetiracetam] 1,000 mg PO BID Pantoprazole Tab [Protonix Tab] 40 mg PO DAILY Naproxen [Naprosyn Tab] 500 mg PO DAILY guaiFENesin/DM ER 600-30 [Mucinex Dm 600-30 MG] 1 tablet PO BID Atorvastatin [Lipitor] 10 mg PO BEDTIME - Follow Up or Referral Follow Up: Meek Hendricks DO [Physician] - (Call office if needed) Jayro Temple MD [Physician] - - Forms/Instructions Instructions: Lymphadenopathy (GEN) Additional Discharge Instructions: Patient will need a daily CBC drawn for at least the next week. She also needs Dr. Temple to be consulted at [facility] Exam - Constitutional Vitals: Period Temp Pulse Resp BP Sys/Mcwilliams Pulse Ox Last 24 Hr 96.5 F-97.8 F 64-93 16-20 84-115/49-58 94-100 General appearance: over weight - Head Head exam: Present: other (patient has a craniotomy scar) - ENT ENT exam: Present: normal exam - Neck Neck exam: Present: normal inspection - Respiratory Respiratory exam: Present: clear to auscultation bilaterally - Cardiovascular Cardiovascular exam: Present: regular rate and rhythm - GI/Abdominal GI/Abdominal exam: Present: normal bowel sounds - Extremities Exam Extremities exam: Present: normal inspection - Neurological Exam Neurological exam: Present: other (patient's with left hemiparesis and aphasia) Discharge Results Procedures and tests throughout hospitalization: Pending Orders 11/07/16 04:00 Comp Blood Count Auto Diff IN AM Comp Blood Count Auto Diff IN AM Comprehensive Metabolic Panel IN AM Comprehensive Metabolic Panel IN AM LDH [Lactate Dehydrogenase] LDH [Lactate Dehydrogenase] IN AM 11/08/16 04:00 Comp Blood Count Auto Diff IN AM Comprehensive Metabolic Panel IN AM LDH [Lactate Dehydrogenase] IN AM 11/09/16 04:00 Comp Blood Count Auto Diff IN AM Comprehensive Metabolic Panel IN AM LDH [Lactate Dehydrogenase] IN AM 11/10/16 04:00 Comp Blood Count Auto Diff IN AM Comprehensive Metabolic Panel IN AM LDH [Lactate Dehydrogenase] IN AM 11/11/16 04:00 Comp Blood Count Auto Diff IN AM Comprehensive Metabolic Panel IN AM Labs on day of discharge: Labs from last 24 hours 11/06/16 11/06/16 11/05/16 03:50 03:50 08:15 WBC 3.8 L RBC 3.56 L Hgb 9.4 L Hct 30.1 L MCV 84.6 L MCH 26 L MCHC 31.2 L RDW 14.8 Plt Count 351 MPV 10.3 Neut % (Auto) 72.1 Lymph % (Auto) 25.1 [place] % (Auto) 0.5 L Eos % (Auto) 1.0 Baso % (Auto) 0.5 Neut # (Auto) 2.8 Lymph # (Auto) 1.0 L [place] # (Auto) 0.0 L Eos # (Auto) 0.0 Baso # (Auto) 0.0 Total Counted 100 Immature Gran % 0.8 Nucleated RBC % 0.0 Immature Gran # 0.03 Segmented Neutrophils 67 Band Neutrophils 1 Lymphocytes 31 Monocytes 1 L Nucleated RBCs # 0.00 Platelet Estimate Normal Hypochromasia 1+ Microcytosis 1+ Morphology Comment Sodium 143 143 Potassium 4.0 3.9 Chloride 102 103 Carbon Dioxide 33 H 34 H Anion Gap 12.0 9.9 BUN 8 8 Creatinine 0.40 L 0.40 L GFR Calculation 142 142 BUN/Creatinine Ratio 20.00 20.00 Glucose 92 87 Calculated Osmolality 282.0 281.0 Calcium 8.6 8.6 Total Bilirubin 1.10 H < 0.39 AST 16 16 ALT 19 18 Alkaline Phosphatase 69 65 Lactate Dehydrogenase 210 214 Total Protein 6.0 L 5.8 L Albumin 2.5 L 2.5 L Globulin 3.5 3.3 Albumin/Globulin Ratio 0.7 L 0.7 L DS: Provider Date of admission: 10/06/16 19:34 Primary care physician: . No PCP Attending physician on admission: Gabino Campos MD Consults: 10/06/16 21:03 Consult to Physician [CONS] Routine Comment: left parotid swelling Consulting Provider: Meek Hendricks Consulting Provider Notified: Yes When should Consulting Provider be notified: Now Person Notified: carolin called Date Notified: 10/09/16 Time Notified: 08:27 10/10/16 09:45 Consult to Occupational Therapy [CONS] Routine Reason for Occupational Therapy: Evaluate and Treat Consult Comment: Evaluate and Treat for TMR placement Consult to Physical Therapy [CONS] Routine Reason for Physical Therapy: Evaluate and Treat Consult Comment: Evaluate and Treat for TMR placement 10/24/16 08:23 Consult to Physician [CONS] Routine Comment: Lymphoma Consulting Provider: Jayro Cabello Consulting Provider Notified: Yes When should Consulting Provider be notified: Now Consult to Specialist Group: Oncology When should Consulting Provider be notified: Now Person Notified: lebron called Date Notified: 10/25/16 Time Notified: 08:37 10/29/16 09:08 Consult to Physician [CONS] Routine Comment: mediport Consulting Provider: Brigido Dempsey Consulting Provider Notified: Yes When should Consulting Provider be notified: Now Person Notified: angeli called Date Notified: 10/29/16 Time Notified: 09:50 10/29/16 12:59 Consult to Anesthesiology [CONS] Routine Consulting Provider: Reason for Anesthesiology: Pre-op Clearance Discharging clinician: Jayro Dodson MD
[2016-11-06 10:34] VITALS: BP 90/51
--- NOTE | 2016-11-08 12:41 | Pathology Report from [facility] ---
ACCESSION # : [id number] PATIENT NAME : Awilda Goddard ORDERING DR : Meek Hendricks DO CLINICAL HX: Reactive cervical lymphadenopathy POST-OP DX: Same SPECIMEN INFO: Left cervical lymph node GROSS DESCRIPTION: Received fresh labeled with the patient's name "AWILDA GODDARD " and consists of multiple fragments of hyperemic rivera tissue measuring 2.5 x 1.4 cm. Sectioned and submitted in one cassette. DIAGNOSIS FOR AWILDA GODDARD: LEFT CERVICAL LYMPH NODE: Malignant lymphoma, CD20+ Sent for marker studies. SERVICE DATE: 10/17/2016 REPORT DATE: 10/18/2016 SUPPLEMENTAL TEXT: Flow cytometry report from John Nunn MD., PhD., [email or web address] , [place], [place] reported:LEFT NECK MASS SUBMITTED FOR EVALUATION: Tissue with no immunophenotypic evidence of lymphoma.INTERPRETATION: Cytospin is cellular. The integrity of the sample is suitable for analysis. B-cells are rare. There is no evidence of a monotypic B-cell population. T-cells show normal antigen expression, and the CD4:CD8 ratio is normal. NK-cells and plasma cells are not increased. There are ~94% non-lymphoid cells. A non-lymphoid neoplasm cannot be excluded. Correlation with all clinical data, morphology, and ancillary studies is recommended for complete evaluation. These results are interpreted with caution due to reduced viability of the specimen.The following is the consultation report from Roberto Mcintosh MD., [email or web address], [place], [place]:LYMPH NODE , LEFT CERVICAL, BIOPSY: Diffuse large B cell lymphoma, non germinal center B type. (see microscopic description) SUPPLEMENTAL DATE: 11/07/2016 PATHOLOGIST: Frankie Fox III, M.D. [facility]
--- NOTE | 2016-11-08 12:41 | Pathology Report from [facility] ---
ACCESSION # : [id number] PATIENT NAME : Awilda Goddard ORDERING DR : KANCHAN GONZALEZ MD CLINICAL HX: Lymphadenopathy POST-OP DX: Same SPECIMEN INFO: Left neck mass sent for flow and permanent sections GROSS DESCRIPTION: #1 & #2 Received labeled with the patient's name "AWILDA GODDARD and LT NECK MASS BX" consists of multiple red-rivera tissue fragments measuring from 0.1 cm to 1.0 x 0.1 cm. Submitted for flow and permanent sections. DIAGNOSIS FOR AWILDA GODDARD: LEFT NECK MASS, NEEDLE BIOPSY: C20 + malignant lymphoma with extensive tumor necrosis.Flow cytometry report from Michael Nunn MD., PhD., [email or web address], [place], [place] reported:LEFT NECK MASS SUBMITTED FOR EVALUATION: Tissue with no immunophenotypic evidence of lymphoma.INTERPRETATION: Cytospin is cellular. The integrity of the sample is suitable for analysis. B-cells are rare. There is no evidence of a monotypic B -cell population. T-cells show normal antigen expression, and the CD4:CD8 ratio is normal. NK-cells and plasma cells are not increased. There are ~94% non-lymphoid cells. A non-lymphoid neoplasm cannot be excluded. Correlation with all clinical data, morphology, and ancillary studies is recommended for complete evaluation. These results are interpreted with caution due to reduced viability of the specimen. SERVICE DATE: 10/08/2016 REPORT DATE: 10/11/2016 PATHOLOGIST: Frankie Fox III, M.D. [facility]
== END 2016-11-06 12:30 | DRG 824 ==
LOC: EDBD → EDUNIT# → N.ED 17:02 → SUATTDRO 19:34 → N.EDINP 19:34 → N.ICU 20:18 → N.3E 10-08 18:30 → N.4E 10-30 11:30
PROVIDERS: ADMIT Family Medicine; ATTEND Internal Medicine
PROC: IRBXLYN (2016-10-08 13:50)

== ENCOUNTER 2017-01-09 20:34 | Inpatient (IN) ==
[2017-01-09] MEDS ORDERED: SODIUM CHLORIDE 0.9% 500 ML IV STA ×2 (21:37→23:22)
[2017-01-09] MEDS ORDERED: cefTRIAXone 1,000 MG in SODIUM CHLORIDE 0.9% 100 ML IV STA (21:37)
--- NOTE | 2017-01-09 21:54 | XRay Report ---
Exam: XR chest 1V portable Date: 01/09/2017 9:38 PM Indication: Shortness of breath fever, history of lymphoma Comparison: Recent CT scan of the neck chest abdomen and pelvis 01/06/2017 Technical: AP portable Findings: A right-sided subclavian port catheter is present. Cardiomegaly is present. Mild interstitial thickening mid inspiratory exam. External cardiac leads oxygen tubing are present. The bony structures are intact. Mediastinum is unremarkable. No obvious pneumothorax Impression: 1. Cardiomegaly with the mid inspiratory exam with mild interstitial thickening in the perihilar regions bilaterally. No obvious effusions with some dependent atelectatic change present bilaterally 2. Stable appearance of the right subclavian port catheter PROCEDURE INTERPRETED AT [facility] DEPARTMENT OF RADIOLOGY Final Report Signed by: Dr. Soren Molina
[2017-01-09 22:01] LABS: Basophils # 0.1 10*3/uL (0.0-0.2); Basophils % 5.2 % (0.0-0.8); Eosinophils % 3.5 % (0.00-10.9); Hematocrit 30.2 VOL% (35.7-47.0); Hemoglobin 9.9 GM/DL (12.0-16.0); Immature Granulocytes % 0.9 %; Immature Granulocytes Absolute 0.01 #; Lymphocytes # 0.6 10*3/uL (1.4-4.0); Lymphocytes % 47.8 % (21.3-54.2); Mean Corpuscular HGB Conc 32.8 GM/DL (32-36); Mean Corpuscular Hemoglobin 29 PG (27-34); Mean Corpuscular Volume 87.5 FL (87-102); Mean Platelet Volume 10.7 FL (9.6-12.0); Monocytes # 0.3 10*3/uL (0.11-0.8); Monocytes % 24.3 % (1.7-12.7); Neutrophils # 0.2 10*3/uL (1.4-7.4); Neutrophils % 18.3 % (38.7-73.9); Platelet Count 178 T/CUMM (130-400); Red Blood Count 3.45 MC/CUMM (3.8-5.5); Red Cell Distribution Width 19.6 % (9.3-17.3); White Blood Count 1.2 T/CUMM (4-12)
[2017-01-09 22:11] LABS: PT Patient Result 10.2 SECS
--- NOTE | 2017-01-09 22:13 | Emergency Department Note ---
Madeline Restrepo [place], am scribing for, and in the presence of, Donald Jones MD 21:57. Robert Restrepo Charles R, MD, personally performed the services described in this documentation, ascribed by Khanh Correa in my presence, and it is both accurate and complete 213 . Arrival - Arrival Chief Complaint: Fever Stated Complaint: running fever ED Nursing Triage Note: C/O Not feeling well a couple of days- Fever that started today. Pt is currently being treated for non-hodgkins lymphoma- Last chemo was one week ago. Mode of Arrival: Wheelchair Limitations: No Limitations Source: Patient Time Seen by Provider: 01/09/17 21:02 - History of Present Illness HPI Narrative: This is a 51 y/o white female presenting to the ED with c/o not feeling well that onset two days ago. According to the pt's she had a fever today after he came to work. Pt is currently on her fourth round of chemo treatment and is being treated by Dr. Dalton for non-Hodgkins Lymphoma. Her last chemo treatment was last Friday. She denies chills, nausea, vomiting, diarrhea, back pain, hematuria, and dsysuria. She is experiencing some abdominal pain. Pt has a history of reoccurring UTI and frequent urination. She became lethargic the last time she was hospitalized for this compliant. Her PMHx is consistent with HTN, fibromyalgia, and depression. Consistency: constant Severity: moderate Allergies/Adverse Reactions: Allergies Allergy/AdvReac Type Severity Reaction Status Date / Time No Known Allergies Allergy Verified 03/17/15 13:59 Home Medications: Home Medications Medication Instructions Recorded Confirmed Type Acyclovir [Acyclovir Cap/Tab] 400 mg PO BID 03/17/15 01/09/17 History Amitriptyline [Elavil] 20 mg PO BEDTIME 03/17/15 01/09/17 History Dextroamphetamine/Amphetamine 30 mg PO AC BREAKFAST 03/17/15 01/09/17 History [Adderall XR] Methocarbamol Tab [Robaxin Tab] 750 mg PO BID 03/17/15 01/09/17 History Atorvastatin [Lipitor] 10 mg PO BEDTIME 09/18/16 01/09/17 History Naproxen [Naprosyn Tab] 500 mg PO DAILY 09/18/16 01/09/17 History Pantoprazole Tab [Protonix Tab] 40 mg PO DAILY 09/18/16 01/09/17 History levETIRAcetam [Levetiracetam] 1,000 mg PO BID 09/18/16 01/09/17 History HYDROcodone/ACETAMIN 5-325 [[place] 2 tablet PO Q6H PRN #30 tablet 10/30/16 Rx 5-325] Guaifenesin/Pseudoephedrne HCl 1 each PO DAILY 01/09/17 01/09/17 History [Mucinex D ER 600-60 mg Tablet] Loratadine 10 mg PO DAILY 01/09/17 01/09/17 History Review of System - Review of System 12 point system: reviewed and no additional remarkable complaints except as stated - Review of System Constitutional: Present: fever (100). Absent: chills, weakness Eyes: Absent: vision change Head/Ears/Nose/Throat: Absent: nasal drainage Respiratory: Absent: cough, wheezing Cardiovascular: Absent: chest pain, dyspnea on exertion Gastrointestinal: Present: abdominal pain. Absent: nausea, vomiting, diarrhea Genitourinary female: Absent: dysuria Musculoskeletal: Absent: arm pain, back pain, leg pain, neck pain Skin: Absent: rash Neurological: Absent: headache, weakness, confusion, vertigo Psychiatric: Absent: anxiety Endocrine: Absent: fatigue Hematological/Lymphatic: Absent: easy bleeding Allergic/Immunologic: Absent: facial swelling Medical,Surgical,& Family Hx - Medical History Cardio: History of: Hypertension Psychological: History of: ADHD, Depression Neurology: History of: Cerebral Hemorrhage, Cerebrovascular Accident (February 2016) , Migraine, Seizures (after stroke in hospital), TIA (possible in past?) No history of: Brain Aneurysm, Cerebral Palsy, Dementia, Parkinson's Disease , Peripheral Neuropathy, Vertigo, Neurologocal Cancer HEENT: History of: HEENT Problems (old trach. just d/c'd in september 2016) Rheumatology: History of;: Fibromyalgia Respiratory: History of: Intubation, Pneumonia Genitourinary: History of: Recurring Urinary Tract Infections Gastrointestinal: History of: GI Problems (Lactose intolerant) Musculoskeletal: History of: Musculoskeletal Problems (fibromyalgia) Other: History of: Miscellaneous Medical Problems (narcolepsy) - Surgical History Cardiac Surgeries: Sugical HX of: Cardiac Catheterization (x2) Neurologic Surgeries: Surgical HX of: Cerebral Hemorrhage, Neurologic Surgery ( crainiotomy) Patient denies: Brain Aneurysm Abdominal Surgeries: Patient denies: Abdominal Surgery Reproductive Surgeries: Surgical HX of;: Hysterectomy Patient denies;: Genitourinary Surgery, Gynecologic Surgery - Family History Family History: Reports;: Family Cancer (BROTHER), Family Diabetes (FATHER), Family Heart Disease (father and brother), Family Hypertension (MOTHER AND FATHER), Family Stroke (FAHTER) - Social History Smoking Status: Smoker, status unknown Frequency of Alcohol Use: None Type of Drug Use: None Exam Vital Signs: Vital Signs Temperature 99.4 F 01/09/17 20:39 Pulse Rate 96 H 01/09/17 20:39 Respiratory Rate 26 H 01/09/17 20:39 Blood Pressure 92/65 01/09/17 20:39 O2 Sat by Pulse Oximetry 93 L 01/09/17 20:39 - General Exam limited due to: other (decreased LOC) General appearance: in no apparent distress, lethargic - Head Head exam: Present: atraumatic, normocephalic, normal inspection - Eye Eye exam: Present: normal appearance, PERRL, EOMI - ENT ENT exam: Present: normal exam, normal oropharynx, mucous membranes moist, TM's normal bilaterally, normal external ear exam - Neck Neck exam: Present: normal inspection, full ROM, trachea midline. Absent: tenderness - Chest Chest inspection: Present: normal inspection, symmetric chest wall rise. Absent : tenderness - Respiratory Respiratory exam: Present: other (crackles in lung correa bilaterally ) - Cardiovascular Cardiovascular exam: Present: normal rhythm, tachycardia, normal heart sounds. Absent: regular rate - Abdominal Exam Abdominal exam: Present: soft, tenderness (suprapubic ), diminished bowel sounds. Absent: distention, guarding, normal bowel sounds - Extremities Exam Extremities exam: Present: full ROM, normal capillary refill, pedal edema ( bilateral ). Absent: normal inspection, tenderness, calf tenderness - Back Exam Back exam: Present: normal inspection, full ROM. Absent: tenderness - Neurological Exam Neurological exam: Present: alert, oriented X3, CN II-XII intact, normal gait, reflexes normal - Psychiatric Psychiatric exam: Present: normal affect, normal mood - Skin Skin exam: Present: warm, dry, intact, normal color. Absent: rash, diaphoresis Course - Consultations Consultation #1: Dr Cabello will admit pt Time: 23:11 Results - Labs CBC & BMP: 01/09/17 21:12 01/09/17 21:12 Lab Results: I have reviewed the patients labs Critical Care Time Critical Care Time: Yes Total Critical Care Time: 60 Disposition Clinical Impression: Non-Hodgkin lymphoma, Neutropenia, Fever, Generalized weakness, Sepsis Case discussed with: patient, patient's family Disposition: Still a Patient Condition: Guarded Time of Disposition: 23:17
[2017-01-09 22:20] LABS: Alanine Aminotransferase 38 U/L (13-56); Albumin 3.3 G/DL (3.4-5.0); Alkaline Phosphatase 173 U/L (45-117); Amylase 24 U/L (25-115); Aspartate Amino Transferase 34 U/L (0-37); Bilirubin,Total < 0.39 MG/DL (0.2-1.0); Blood Urea Nitrogen 9 MG/DL (7-18); Calcium 8.2 MG/DL (8.5-10.1); Glucose 147 MG/DL (74-106); Osmolality,Calculated 280.4 MOS/KG (273-304); Potassium 3.7 MMOL/L (3.5-5.1); Sodium 140 MMOL/L (136-145); Total Protein 6.8 G/DL (6.4-8.3)
[2017-01-09] MEDS ORDERED: SODIUM CHLORIDE 0.9% 100 ML IV ONE ×2 (22:24→23:44)
[2017-01-09] MEDS ORDERED: cefTRIAXone 1,000 MG VIAL ONE (22:24)
[2017-01-09 22:57] LABS: Apearance,Urine CLEAR (Clear); Bacteria,Urine Occasional /HPF (Few); Bilirubin,Urine Small mg/dL (Negative); Blood, Urine Negative (Negative); Glucose,Urine (UA) Negative (Negative); Ketones,Urine Negative (Negative); Mucus,Urine Occasional /LPF (Occasional); Nitrite,Urine Negative (Negative); Protein,Urine Negative; RBC,Urine 1 /HPF (0-4); Squamous Epithelial Cell,Urine Occasional /HPF (0-10); Urine Color Yellow (Yellow); Urine Specific Gravity 1.027 (1.001-1.035); Urine Urobilinogen < 2.0 EU/DL (0.2-1.0); WBC,Urine <1 /HPF (0-6)
[2017-01-09] MEDS ORDERED: FILGRASTIM-SNDZ 300 MCG/0.5 ML SYRINGE SUBCUT ONE (23:22)
[2017-01-09] MEDS ORDERED: PIPERACILLIN/TAZOBACTAM 3,375 MG in SODIUM CHLORIDE 0.9% 100 ML IV STA (23:32)
[2017-01-09] MEDS ORDERED: PIPERACILLIN/TAZOBACTAM 3,375 MG VIAL IV ONE (23:44)
[2017-01-10 01:13] LABS: Band Neutrophils 4 % (0-10); Eosinophils 6 % (0-10); Lymphocytes 44 % (20-55); Metamyelocytes 2 %; Platelet Estimate Adequate; Segmented Neutrophils 14 % (50-85); Total Cells Counted 100
[2017-01-10 01:14] LABS: Polychromasia Slight
[2017-01-10 01:15] LABS: Hypochromasia Slight
[2017-01-10] MEDS ORDERED: traMADol 50 MG TABLET PO PRN (01:25)
[2017-01-10] MEDS ORDERED: ALUMINUM/MAGNES/SIMETH MAX STR 30 ML UDCUP PO PRN (01:25)
[2017-01-10] MEDS ORDERED: chlorproMAZINE INJ 25 MG in SODIUM CHLORIDE 0.9% 100 ML IV PRN (01:25)
[2017-01-10] MEDS ORDERED: guaiFENesin 200 MG/10 ML UDCUP PO PRN (01:25)
[2017-01-10] MEDS ORDERED: ALPRAZolam 0.25 MG TABLET PO PRN (01:25)
[2017-01-10] MEDS ORDERED: MYLANTA/LIDO VISC 2:1 300 ML BOTTLE SWISH/SWAL PRN (01:25)
[2017-01-10] MEDS ORDERED: ONDANSETRON 4 MG/2 ML VIAL IV PRN (01:25)
[2017-01-10] MEDS ORDERED: PROMETHAZINE INJ 25 MG in SODIUM CHLORIDE 0.9% 50 ML IV PRN (01:25)
[2017-01-10] MEDS ORDERED: ACETAMINOPHEN 325 MG TABLET PO PRN (01:25)
[2017-01-10] MEDS ORDERED: MYLANTA/LIDO VISC 2:1 300 ML BOTTLE SWISH/SPIT PRN (01:25)
[2017-01-10] MEDS ORDERED: LACTULOSE 20 GM/30 ML UDCUP PO PRN (01:25)
[2017-01-10] MEDS ORDERED: chlorproMAZINE INJ 50 MG in SODIUM CHLORIDE 0.9% 100 ML IV PRN (01:25)
[2017-01-10] MEDS ORDERED: TEMAZEPAM 7.5 MG CAPSULE PO PRN (01:25)
[2017-01-10] MEDS ORDERED: chlorproMAZINE 25 MG TABLET PO PRN (01:25)
[2017-01-10] MEDS ORDERED: BENZTROPINE 2 MG/2 ML AMP IV PRN (01:25)
[2017-01-10] MEDS ORDERED: diphenhydrAMINE CAP 25 MG CAPSULE PO PRN (01:25)
[2017-01-10] MEDS ORDERED: MAGNESIUM HYDROXIDE SUSP 30 ML UDCUP PO PRN (01:25)
[2017-01-10] MEDS ORDERED: LOPERAMIDE 2 MG CAPSULE PO PRN ×2 (01:25)
[2017-01-10 04:06] LABS: Sedimentation Rate-Westergren 96 MM/HR (0-30)
[2017-01-10] MEDS: SODIUM CHLORIDE 0.9% 1,000 ML IV SCH ×3 (04:24→21:25)
[2017-01-10 05:24] LABS: Basophils # 0.1 10*3/uL (0.0-0.2); Basophils % 2.3 % (0.0-0.8); Eosinophils # 0.1 10*3/uL (0.0-0.87); Eosinophils % 2.7 % (0.00-10.9); Hematocrit 27.5 VOL% (35.7-47.0); Hemoglobin 8.7 GM/DL (12.0-16.0); Immature Granulocytes % 2.7 %; Immature Granulocytes Absolute 0.07 #; Lymphocytes # 1.1 10*3/uL (1.4-4.0); Lymphocytes % 41.4 % (21.3-54.2); Mean Corpuscular HGB Conc 31.6 GM/DL (32-36); Mean Corpuscular Hemoglobin 28 PG (27-34); Mean Platelet Volume 11.5 FL (9.6-12.0); Monocytes # 0.7 10*3/uL (0.11-0.8); Monocytes % 26.2 % (1.7-12.7); NRBC # 0.04 10*3/uL; Neutrophils # 0.6 10*3/uL (1.4-7.4); Neutrophils % 24.7 % (38.7-73.9); Platelet Count 158 T/CUMM (130-400); Red Blood Count 3.09 MC/CUMM (3.8-5.5); Red Cell Distribution Width 19.7 % (9.3-17.3); White Blood Count 2.6 T/CUMM (4-12)
[2017-01-10 05:27] LABS: Albumin 3.1 G/DL (3.4-5.0); Bilirubin,Total 0.6 MG/DL (0.2-1.0); Calcium 8.6 MG/DL (8.5-10.1); Osmolality,Calculated 282.1 MOS/KG (273-304); Potassium 3.6 MMOL/L (3.5-5.1); Total Protein 6.2 G/DL (6.4-8.3); Uric Acid 5.6 MG/DL (2.6-6.0)
[2017-01-10 06:03] LABS: Band Neutrophils 5 % (0-10); Elliptocytes Few; Eosinophils 1 % (0-10); Hypochromasia 1+; Lymphocytes 45 % (20-55); Nucleated Red Blood Cells 2 (0-5); Platelet Estimate Normal; Segmented Neutrophils 20 % (50-85); Total Cells Counted 100
--- NOTE | 2017-01-10 07:38 | XRay Report ---
History short of breath Comparison 01/09/2017 The heart is mildly enlarged MediPort present There is been slight improved aeration in the lung bases. Remains mild elevation of the right diaphragm with minimal right basilar atelectasis. Upper lung long are clear Impression: Mild improved aeration in the lung bases PROCEDURE INTERPRETED AT [facility] DEPARTMENT OF RADIOLOGY Final Report Signed by: Dr. Kendra Hawkins
[2017-01-10] MEDS: DEXTROAMPHETAMINE PO SCH (08:41)
[2017-01-10] MEDS: AMPHETAMINE PO SCH (08:41)
[2017-01-10] MEDS: PIPERACILLIN/TAZOBACTAM 3,375 MG in SODIUM CHLORIDE 0.9% 100 ML IV SCH ×2 (08:41→16:20)
[2017-01-10] MEDS: FILGRASTIM-SNDZ 300 MCG/0.5 ML SYRINGE SUBCUT SCH (08:42)
[2017-01-10] MEDS: levETIRAcetam 500 MG TABLET PO SCH ×2 (08:42→21:21)
[2017-01-10] MEDS: LORATADINE 10 MG TABLET PO SCH (08:43)
[2017-01-10] MEDS: METHOCARBAMOL 750 MG TABLET PO SCH ×2 (08:43→21:21)
[2017-01-10] MEDS: PANTOPRAZOLE 40 MG TABLET PO SCH (08:43)
[2017-01-10] MEDS: PSEUDOEPHEDRINE 30 MG TABLET PO SCH (08:43)
[2017-01-10] MEDS: ACYCLOVIR 200 MG CAPSULE PO SCH ×2 (08:43→21:20)
[2017-01-10] MEDS: NAPROXEN 500 MG TABLET PO SCH (08:44)
[2017-01-10] MEDS ORDERED: PANTOPRAZOLE 40 MG VIAL IV SCH (09:00)
--- NOTE | 2017-01-10 11:02 | Oncology History&Physical ---
History of Present Illness Chief complaint: Febrile neutropenia/sepsis History of present illness: Ms. 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 She has had an excellent response to chemotherapy already. She has very little residual disease in the left neck. Prior to institution of chemotherapy there was bulky lymphadenopathy there. She was admitted at this time with febrile leukopenia and suspected sepsis. She has previously suffered a left sided stroke that was initially a hemorrhagic stroke and subsequently extended as a thrombotic stroke apparently from edema. This developed prior to the diagnosis of lymphoma. She has expressive aphasia, actually dysphagia, and it is relatively stable or perhaps minimally improved. Lab work on this admission includes a white cell count of 2600 with an absolute neutrophil count of 600. She is also anemic with a hemoglobin of 8.7. Her platelet count is normal at 158,000. Past Medical History Cardio: History of: Hypertension Psychological: History of: ADHD, Depression Neurology: History of: Cerebral Hemorrhage, Cerebrovascular Accident (February 2016) , Migraine, Seizures (after stroke in hospital), TIA (possible in past?) No history of: Brain Aneurysm, Cerebral Palsy, Dementia, Parkinson's Disease , Peripheral Neuropathy, Vertigo, Neurologocal Cancer HEENT: History of: HEENT Problems (old trach. just d/c'd in september 2016) Rheumatology: History of;: Fibromyalgia Respiratory: History of: Intubation, Pneumonia Genitourinary: History of: Recurring Urinary Tract Infections Gastrointestinal: History of: GI Problems (Lactose intolerant) Musculoskeletal: History of: Musculoskeletal Problems (fibromyalgia) Other: History of: Miscellaneous Medical Problems (narcolepsy) - Surgical History Cardiac Surgeries: Sugical HX of: Cardiac Catheterization (x2) Neurologic Surgeries: Surgical HX of: Cerebral Hemorrhage, Neurologic Surgery ( crainiotomy) Patient denies: Brain Aneurysm Abdominal Surgeries: Patient denies: Abdominal Surgery Reproductive Surgeries: Surgical HX of;: Hysterectomy Patient denies;: Genitourinary Surgery, Gynecologic Surgery - Family History Family History: Reports;: Family Cancer (BROTHER), Family Diabetes (FATHER), Family Heart Disease (father and brother), Family Hypertension (MOTHER AND FATHER), Family Stroke (FAHTER) - Social History Smoking Status: Smoker, status unknown Frequency of Alcohol Use: None Type of Drug Use: None Review of systems is difficult to obtain because the patient has expressive dysphasia. On physical examination today, she appears to be fully oriented and alert. However, she has expressive aphasia. Eyes: Normal lids and conjunctivae. ENT: Her oral mucosa and pharynx are normal. Her hearing appears normal. Neck: The extensive mass-effect on the left side of her neck has decreased considerably. There is evidence of residual adenopathy but it is substantially diminished. Cardiovascular: Her heart rhythm is regular without murmur, gallop or rub. She has no jugular venous distention, clubbing or cyanosis. Lungs: Breath sounds are normal and her chest moves symmetrically with respiration. Abdomen: She has no abdominal masses, organomegaly, or distention but she is tender in the lower to mid abdomen. She has a PEG tube in place in the left upper quadrant. Musculoskeletal: She has spastic left facial and right extremity hemiparesis. Neurologic: See musculoskeletal. She has expressive dysphasia. Psychiatric: The patient appears fully oriented alert but has expressive dysphasia. Nodes:There are still matted adenopathy in the left cervical and supraclavicular area but it certainly less noticeable. Skin: I see no significant rashes. Impression: #1: Febrile neutropenia/sepsis #2: Diffuse large cell CD20 positive non-Hodgkin's lymphoma on chemotherapy and responding well. #3: Cerebrovascular accident with left facial and right extremity hemiparesis due to prior thrombotic stroke followed by hemorrhagic stroke. Home Medications Medication Instructions Recorded Confirmed Type Acyclovir [Acyclovir Cap/Tab] 400 mg PO BID 03/17/15 01/09/17 History Amitriptyline [Elavil] 20 mg PO BEDTIME 03/17/15 01/09/17 History Dextroamphetamine/Amphetamine 30 mg PO AC BREAKFAST 03/17/15 01/09/17 History [Adderall XR] Methocarbamol Tab [Robaxin Tab] 750 mg PO BID 03/17/15 01/09/17 History Atorvastatin [Lipitor] 10 mg PO BEDTIME 09/18/16 01/09/17 History Naproxen [Naprosyn Tab] 500 mg PO DAILY 09/18/16 01/09/17 History Pantoprazole Tab [Protonix Tab] 40 mg PO DAILY 09/18/16 01/09/17 History levETIRAcetam [Levetiracetam] 1,000 mg PO BID 09/18/16 01/09/17 History HYDROcodone/ACETAMIN 5-325 [[place] 2 tablet PO Q6H PRN #30 tablet 10/30/16 Rx 5-325] Guaifenesin/Pseudoephedrne HCl 1 each PO DAILY 01/09/17 01/09/17 History [Mucinex D ER 600-60 mg Tablet] Loratadine 10 mg PO DAILY 01/09/17 01/09/17 History Allergies Allergy/AdvReac Type Severity Reaction Status Date / Time No Known Allergies Allergy Verified 03/17/15 13:59 Medical,Surgical,& Family Hx - Medical History Cardio: History of: Hypertension Psychological: History of: ADHD, Depression Neurology: History of: Cerebral Hemorrhage, Cerebrovascular Accident (February 2016) , Migraine, Seizures (after stroke in hospital), TIA (possible in past?) No history of: Brain Aneurysm, Cerebral Palsy, Dementia, Parkinson's Disease , Peripheral Neuropathy, Vertigo, Neurologocal Cancer HEENT: History of: HEENT Problems (old trach. just d/c'd in september 2016) Rheumatology: History of;: Fibromyalgia Respiratory: History of: Intubation, Pneumonia Genitourinary: History of: Recurring Urinary Tract Infections Gastrointestinal: History of: GI Problems (Lactose intolerant) Musculoskeletal: History of: Musculoskeletal Problems (fibromyalgia) Other: History of: Miscellaneous Medical Problems (narcolepsy) - Surgical History Cardiac Surgeries: Sugical HX of: Cardiac Catheterization (x2) Neurologic Surgeries: Surgical HX of: Cerebral Hemorrhage, Neurologic Surgery ( crainiotomy) Patient denies: Brain Aneurysm Abdominal Surgeries: Patient denies: Abdominal Surgery Reproductive Surgeries: Surgical HX of;: Hysterectomy Patient denies;: Genitourinary Surgery, Gynecologic Surgery - Family History Family History: Reports;: Family Cancer (BROTHER), Family Diabetes (FATHER), Family Heart Disease (father and brother), Family Hypertension (MOTHER AND FATHER), Family Stroke (FAHTER) - Social History Smoking Status: Smoker, status unknown Frequency of Alcohol Use: None Type of Drug Use: None Exam - Constitutional Vitals: Period Temp Pulse Resp BP Sys/Mcwilliams Pulse Ox Last 24 Hr 96.8 F-98.0 F 97-108 16-20 92-110/52-74 89-100 Results - Labs CBC & BMP: 01/10/17 04:14 01/10/17 04:14
[2017-01-10] MEDS: ATORVASTATIN 10 MG TABLET PO SCH (21:20)
[2017-01-10] MEDS: AMITRIPTYLINE 10 MG TABLET PO SCH (21:21)
[2017-01-11] MEDS ORDERED: HEPARIN LOCK FLUSH 500 UNIT/5 ML SYRINGE IV ONE (00:31)
[2017-01-11] MEDS: PIPERACILLIN/TAZOBACTAM 3,375 MG in SODIUM CHLORIDE 0.9% 100 ML IV SCH ×3 (00:35→16:38)
[2017-01-11] MEDS ORDERED: ALTEPLASE 2 MG VIAL INTRACATH ONE (04:31)
[2017-01-11] MEDS: SODIUM CHLORIDE 0.9% 1,000 ML IV SCH ×2 (06:12→14:58)
[2017-01-11 06:31] LABS: Basophils # 0.1 10*3/uL (0.0-0.2); Basophils % 1.8 % (0.0-0.8); Eosinophils # 0.1 10*3/uL (0.0-0.87); Eosinophils % 1.2 % (0.00-10.9); Hematocrit 26.7 VOL% (35.7-47.0); Hemoglobin 8.5 GM/DL (12.0-16.0); Immature Granulocytes % 11.1 %; Immature Granulocytes Absolute 0.82 #; Lymphocytes # 0.9 10*3/uL (1.4-4.0); Lymphocytes % 12.7 % (21.3-54.2); Mean Corpuscular HGB Conc 31.8 GM/DL (32-36); Mean Corpuscular Hemoglobin 28 PG (27-34); Mean Platelet Volume 11.1 FL (9.6-12.0); Monocytes # 1.1 10*3/uL (0.11-0.8); Monocytes % 14.9 % (1.7-12.7); NRBC # 0.07 10*3/uL; Neutrophils # 4.3 10*3/uL (1.4-7.4); Neutrophils % 58.3 % (38.7-73.9); Platelet Count 131 T/CUMM (130-400); Red Blood Count 3.07 MC/CUMM (3.8-5.5); Red Cell Distribution Width 19.8 % (9.3-17.3); White Blood Count 7.4 T/CUMM (4-12)
[2017-01-11 07:08] LABS: Albumin 2.6 G/DL (3.4-5.0); Bilirubin,Total 0.8 MG/DL (0.2-1.0); Calcium 8.1 MG/DL (8.5-10.1); Osmolality,Calculated 283.8 MOS/KG (273-304); Potassium 3.4 MMOL/L (3.5-5.1); Total Protein 5.5 G/DL (6.4-8.3)
[2017-01-11 07:25] LABS: Band Neutrophils 4 % (0-10); Eosinophils 2 % (0-10); Hypochromasia 2+; Lymphocytes 13 % (20-55); Metamyelocytes 5 %; Myelocytes 1 %; Nucleated Red Blood Cells 3 (0-5); Platelet Estimate Decreased; Segmented Neutrophils 58 % (50-85); Total Cells Counted 100
[2017-01-11 07:26] LABS: Ovalocytes Few
[2017-01-11] MEDS: PSEUDOEPHEDRINE 30 MG TABLET PO SCH (08:51)
[2017-01-11] MEDS: PANTOPRAZOLE 40 MG TABLET PO SCH (08:51)
[2017-01-11] MEDS: ACYCLOVIR 200 MG CAPSULE PO SCH ×2 (08:53→20:31)
[2017-01-11] MEDS: NAPROXEN 500 MG TABLET PO SCH (08:53)
[2017-01-11] MEDS: FILGRASTIM-SNDZ 300 MCG/0.5 ML SYRINGE SUBCUT SCH (08:54)
[2017-01-11] MEDS: LORATADINE 10 MG TABLET PO SCH (08:54)
[2017-01-11] MEDS: levETIRAcetam 500 MG TABLET PO SCH ×2 (08:54→20:29)
[2017-01-11] MEDS: AMPHETAMINE PO SCH (09:03)
[2017-01-11] MEDS: DEXTROAMPHETAMINE PO SCH (09:03)
[2017-01-11] MEDS: METHOCARBAMOL 750 MG TABLET PO SCH ×2 (09:07→20:30)
--- NOTE | 2017-01-11 09:45 | Oncology Progress Note ---
Oncology Subjective PN Interval history: Patient with diffuse large B-cell lymphoma admitted with chemotherapy associated neutropenia. Blood cultures are negative. Flu swab was negative. Patient is a phasic from prior CVA. She is PEG tube dependent with an obese abdomen. She is breathing comfortable with clear breath sounds on bilateral auscultation. Heart rhythm is regular. Continue antibiotics. Probably today' s dose of Neupogen will be all that is necessary. Exam - Constitutional Vitals: Period Temp Pulse Resp BP Sys/[place]ams Pulse Ox Last 24 Hr 97.2 F-97.7 F 85-117 18-20 89-122/50-74 92-97 Results - Labs CBC & BMP: 01/11/17 05:50 01/11/17 05:50
[2017-01-11] MEDS: AMITRIPTYLINE 10 MG TABLET PO SCH (20:29)
[2017-01-11] MEDS: ATORVASTATIN 10 MG TABLET PO SCH (20:30)
[2017-01-12] MEDS: PIPERACILLIN/TAZOBACTAM 3,375 MG in SODIUM CHLORIDE 0.9% 100 ML IV SCH ×3 (00:50→16:34)
[2017-01-12 04:12] LABS: Basophils # 0.2 10*3/uL (0.0-0.2); Basophils % 0.9 % (0.0-0.8); Eosinophils # 0.2 10*3/uL (0.0-0.87); Eosinophils % 0.9 % (0.00-10.9); Hematocrit 26.7 VOL% (35.7-47.0); Hemoglobin 8.3 GM/DL (12.0-16.0); Immature Granulocytes % 13.7 %; Immature Granulocytes Absolute 2.84 #; Lymphocytes # 1.4 10*3/uL (1.4-4.0); Lymphocytes % 6.5 % (21.3-54.2); Mean Corpuscular HGB Conc 31.1 GM/DL (32-36); Mean Corpuscular Hemoglobin 27 PG (27-34); Mean Corpuscular Volume 88.1 FL (87-102); Mean Platelet Volume 11.4 FL (9.6-12.0); Monocytes # 1.8 10*3/uL (0.11-0.8); Monocytes % 8.8 % (1.7-12.7); NRBC # 0.05 10*3/uL; Neutrophils # 14.3 10*3/uL (1.4-7.4); Neutrophils % 69.2 % (38.7-73.9); Platelet Count 124 T/CUMM (130-400); Red Blood Count 3.03 MC/CUMM (3.8-5.5); Red Cell Distribution Width 19.9 % (9.3-17.3); White Blood Count 20.7 T/CUMM (4-12)
[2017-01-12 04:58] LABS: Albumin 2.6 G/DL (3.4-5.0); Bilirubin,Total 0.9 MG/DL (0.2-1.0); Calcium 8.3 MG/DL (8.5-10.1); Osmolality,Calculated 289.3 MOS/KG (273-304); Potassium 3.2 MMOL/L (3.5-5.1); Total Protein 5.1 G/DL (6.4-8.3)
[2017-01-12 05:58] LABS: Band Neutrophils 5 % (0-10); Hypochromasia 1+; Lymphocytes 7 % (20-55); Myelocytes 1 %; Ovalocytes Slight; Platelet Estimate Normal; Segmented Neutrophils 81 % (50-85); Total Cells Counted 100
[2017-01-12] MEDS: SODIUM CHLORIDE 0.9% 1,000 ML IV SCH (07:34)
[2017-01-12] MEDS: ACYCLOVIR 200 MG CAPSULE PO SCH ×2 (09:33→21:49)
[2017-01-12] MEDS: levETIRAcetam 500 MG TABLET PO SCH ×2 (09:34→21:49)
[2017-01-12] MEDS: AMPHETAMINE PO SCH (09:34)
[2017-01-12] MEDS: NAPROXEN 500 MG TABLET PO SCH (09:34)
[2017-01-12] MEDS: LORATADINE 10 MG TABLET PO SCH (09:34)
[2017-01-12] MEDS: PANTOPRAZOLE 40 MG TABLET PO SCH (09:34)
[2017-01-12] MEDS: METHOCARBAMOL 750 MG TABLET PO SCH ×2 (09:34→21:49)
[2017-01-12] MEDS: PSEUDOEPHEDRINE 30 MG TABLET PO SCH (09:34)
[2017-01-12] MEDS: DEXTROAMPHETAMINE PO SCH (09:34)
[2017-01-12] MEDS ORDERED: POTASSIUM CHLORIDE 20 MEQ TABLET PO ONE (11:21)
--- NOTE | 2017-01-12 11:23 | Oncology Progress Note ---
Oncology Subjective PN Interval history: Patient with large B-cell lymphoma appears stable this morning. Tolerating feeds. White blood cell count has increased to 20,000. No further Neupogen since yesterday. Anemic but stable. Mild hypokalemia is noted with plans for a one-time oral replacement. Continue present Rx Exam - Constitutional Vitals: Period Temp Pulse Resp BP Sys/[place]ams Pulse Ox Last 24 Hr 97 F-98.3 F 83-100 18-24 80-106/44-70 95-99 Results - Labs CBC & BMP: 01/12/17 03:16 01/12/17 03:16
[2017-01-12] MEDS: AMITRIPTYLINE 10 MG TABLET PO SCH (21:48)
[2017-01-12] MEDS: ATORVASTATIN 10 MG TABLET PO SCH (21:50)
[2017-01-13] MEDS: SODIUM CHLORIDE 0.9% 1,000 ML IV SCH ×4 (00:09→18:00)
[2017-01-13] MEDS: PIPERACILLIN/TAZOBACTAM 3,375 MG in SODIUM CHLORIDE 0.9% 100 ML IV SCH ×3 (00:10→17:49)
[2017-01-13 06:11] LABS: Basophils # 0.2 10*3/uL (0.0-0.2); Eosinophils # 0.2 10*3/uL (0.0-0.87); Hematocrit 23.7 VOL% (35.7-47.0); Hemoglobin 8.2 GM/DL (12.0-16.0); Immature Granulocytes % 19.3 %; Immature Granulocytes Absolute 3.18 #; Lymphocytes # 1.1 10*3/uL (1.4-4.0); Lymphocytes % 6.4 % (21.3-54.2); Mean Corpuscular HGB Conc 34.6 GM/DL (32-36); Mean Corpuscular Hemoglobin 31 PG (27-34); Mean Corpuscular Volume 89.4 FL (87-102); Mean Platelet Volume 10.8 FL (9.6-12.0); Monocytes # 1.5 10*3/uL (0.11-0.8); Monocytes % 8.8 % (1.7-12.7); NRBC # 0.05 10*3/uL; Neutrophils # 10.4 10*3/uL (1.4-7.4); Neutrophils % 63.5 % (38.7-73.9); Platelet Count 109 T/CUMM (130-400); Red Blood Count 2.65 MC/CUMM (3.8-5.5); Red Cell Distribution Width 20.9 % (9.3-17.3); White Blood Count 16.5 T/CUMM (4-12)
[2017-01-13 06:51] LABS: Albumin 2.5 G/DL (3.4-5.0); Bilirubin,Total 0.5 MG/DL (0.2-1.0); Calcium 7.9 MG/DL (8.5-10.1); Osmolality,Calculated 286.4 MOS/KG (273-304); Potassium 3.3 MMOL/L (3.5-5.1); Total Protein 5.3 G/DL (6.4-8.3)
[2017-01-13 06:59] LABS: Band Neutrophils 4 % (0-10); Eosinophils 1 % (0-10); Hypochromasia 1+; Lymphocytes 9 % (20-55); Microcytosis Slight; Myelocytes 2 %; Ovalocytes Slight; Platelet Estimate Normal; Segmented Neutrophils 75 % (50-85); Total Cells Counted 100
--- NOTE | 2017-01-13 07:24 | Oncology Progress Note ---
Oncology Subjective PN Interval history: Patient with diffuse large B cell non-Hodgkin's lymphoma on chemotherapy using Rituxan plus CHOP. Lab work today includes a white cell count of 16,500 with an absolute neutrophil count of 10,400. Hemoglobin is 8.2 and the platelet count is 109, 000. Blood cultures are negative so far. The patient has tested negative for influenza A and influenza B. She is clearly feeling better today. Her oral mucosa and pharynx are normal. Her trachea is midline and she has no neck masses. Lungs: Breath sounds are normal without rubs, rales or rhonchi. Cardiovascular: Her heart rhythm is regular without murmur, gallop or rub. There is no jugular venous distention, clubbing or cyanosis. She has expressive aphasia but she clearly understands what I am telling her. I anticipate discharge possibly as soon as tomorrow. She was supposed to have an appointment to see me this week but I will postpone that and set her up for chemotherapy next week. Exam - Constitutional Vitals: Period Temp Pulse Resp BP Sys/[place]ams Pulse Ox Last 24 Hr 97.2 F-98.3 F 83-97 18-20 92-107/50-71 94-99 Results - Labs CBC & BMP: 01/13/17 04:59 01/13/17 04:59
[2017-01-13] MEDS: PANTOPRAZOLE 40 MG TABLET PO SCH (09:23)
[2017-01-13] MEDS: ACYCLOVIR 200 MG CAPSULE PO SCH ×2 (09:23→20:31)
[2017-01-13] MEDS: PSEUDOEPHEDRINE 30 MG TABLET PO SCH (09:24)
[2017-01-13] MEDS: levETIRAcetam 500 MG TABLET PO SCH ×2 (09:24→20:32)
[2017-01-13] MEDS: METHOCARBAMOL 750 MG TABLET PO SCH ×2 (09:24→20:31)
[2017-01-13] MEDS: LORATADINE 10 MG TABLET PO SCH (09:24)
[2017-01-13] MEDS: NAPROXEN 500 MG TABLET PO SCH (09:24)
[2017-01-13] MEDS: AMITRIPTYLINE 10 MG TABLET PO SCH (20:28)
[2017-01-13] MEDS: ATORVASTATIN 10 MG TABLET PO SCH (20:31)
[2017-01-14] MEDS: PIPERACILLIN/TAZOBACTAM 3,375 MG in SODIUM CHLORIDE 0.9% 100 ML IV SCH ×3 (00:08→16:46)
[2017-01-14] MEDS: SODIUM CHLORIDE 0.9% 1,000 ML IV SCH ×4 (00:10→23:13)
[2017-01-14 05:48] LABS: Basophils # 0.1 10*3/uL (0.0-0.2); Basophils % 0.8 % (0.0-0.8); Eosinophils # 0.1 10*3/uL (0.0-0.87); Eosinophils % 1.2 % (0.00-10.9); Hematocrit 25.7 VOL% (35.7-47.0); Hemoglobin 8.4 GM/DL (12.0-16.0); Immature Granulocytes % 22.3 %; Immature Granulocytes Absolute 2.61 #; Lymphocytes # 1.3 10*3/uL (1.4-4.0); Lymphocytes % 10.7 % (21.3-54.2); Mean Corpuscular HGB Conc 32.7 GM/DL (32-36); Mean Corpuscular Hemoglobin 29 PG (27-34); Mean Corpuscular Volume 88.6 FL (87-102); Mean Platelet Volume 10.8 FL (9.6-12.0); Monocytes # 1.1 10*3/uL (0.11-0.8); Monocytes % 9.1 % (1.7-12.7); NRBC # 0.04 10*3/uL; Neutrophils # 6.6 10*3/uL (1.4-7.4); Neutrophils % 55.9 % (38.7-73.9); Platelet Count 121 T/CUMM (130-400); Red Cell Distribution Width 20.1 % (9.3-17.3); White Blood Count 11.7 T/CUMM (4-12)
[2017-01-14 06:24] LABS: Albumin 2.7 G/DL (3.4-5.0); Bilirubin,Total 0.4 MG/DL (0.2-1.0); Calcium 7.9 MG/DL (8.5-10.1); Osmolality,Calculated 289.3 MOS/KG (273-304); Potassium 3.2 MMOL/L (3.5-5.1); Total Protein 5.3 G/DL (6.4-8.3)
[2017-01-14 07:12] LABS: Band Neutrophils 8 % (0-10); Hypochromasia 1+; Lymphocytes 16 % (20-55); Metamyelocytes 4 %; Microcytosis 1+; Myelocytes 2 %; Nucleated Red Blood Cells 1 (0-5); Ovalocytes Slight; Segmented Neutrophils 61 % (50-85); Total Cells Counted 100
[2017-01-14 07:13] LABS: Platelet Estimate Adequate; Tear Drop Cells Slight
--- NOTE | 2017-01-14 07:16 | Oncology Progress Note ---
Oncology Subjective PN Interval history: Ms. Goddard is afebrile and her CBC is satisfactory. Her hemoglobin is 8.4. Her platelet count is 121,000. She has underlying diffuse large B cell non-Hodgkin's lymphoma and is due chemotherapy again this week. However, I may delay it a week in order to give her time to recover from this neutropenic episode. Blood cultures are negative. Her is not with her this morning I cannot tell whether she is having discomfort or not. I mentioned the possibility of discharge today and she seemed to get a little agitated about it but she has expressive dysphasia/ aphasia and I cannot understand her. Exam - Constitutional Vitals: Period Temp Pulse Resp BP Sys/[place]williams Pulse Ox Last 24 Hr 96.4 F-97.6 F 66-84 18-20 107-119/60-71 96-100 Results - Labs CBC & BMP: 01/14/17 04:00 01/14/17 04:00
[2017-01-14] MEDS: DEXTROAMPHETAMINE PO SCH ×3 (09:47→14:17)
[2017-01-14] MEDS: AMPHETAMINE PO SCH ×3 (09:47→14:17)
[2017-01-14] MEDS: PSEUDOEPHEDRINE 30 MG TABLET PO SCH (09:48)
[2017-01-14] MEDS: LORATADINE 10 MG TABLET PO SCH (09:49)
[2017-01-14] MEDS: levETIRAcetam 500 MG TABLET PO SCH ×2 (09:51→20:18)
[2017-01-14] MEDS: NAPROXEN 500 MG TABLET PO SCH (09:53)
[2017-01-14] MEDS: PANTOPRAZOLE 40 MG TABLET PO SCH (09:54)
[2017-01-14] MEDS: METHOCARBAMOL 750 MG TABLET PO SCH ×2 (09:55→20:19)
[2017-01-14] MEDS: ACYCLOVIR 200 MG CAPSULE PO SCH ×2 (09:56→20:18)
[2017-01-14 13:07] LABS: Apearance,Urine CLEAR (Clear); Bilirubin,Urine Negative (Negative); Blood, Urine Negative (Negative); Glucose,Urine (UA) Negative (Negative); Ketones,Urine Negative (Negative); Nitrite,Urine Negative (Negative); Protein,Urine Negative; Squamous Epithelial Cell,Urine Occasional /HPF (0-10); Urine Specific Gravity 1.008 (1.001-1.035); Urine Urobilinogen < 2.0 EU/DL (0.2-1.0); WBC,Urine 2 /HPF (0-6)
[2017-01-14 13:10] LABS: Urine Color Light Yellow (Yellow)
[2017-01-14] MEDS: ATORVASTATIN 10 MG TABLET PO SCH (20:18)
[2017-01-14] MEDS: AMITRIPTYLINE 10 MG TABLET PO SCH (20:19)
[2017-01-15] MEDS: PIPERACILLIN/TAZOBACTAM 3,375 MG in SODIUM CHLORIDE 0.9% 100 ML IV SCH ×2 (00:24→08:37)
[2017-01-15 05:37] LABS: Basophils # 0.1 10*3/uL (0.0-0.2); Eosinophils # 0.1 10*3/uL (0.0-0.87); Eosinophils % 1.1 % (0.00-10.9); Hematocrit 25.1 VOL% (35.7-47.0); Hemoglobin 8.4 GM/DL (12.0-16.0); Immature Granulocytes % 19.8 %; Immature Granulocytes Absolute 1.87 #; Lymphocytes # 1.2 10*3/uL (1.4-4.0); Lymphocytes % 12.7 % (21.3-54.2); Mean Corpuscular HGB Conc 33.5 GM/DL (32-36); Mean Corpuscular Hemoglobin 29 PG (27-34); Mean Corpuscular Volume 86.6 FL (87-102); Mean Platelet Volume 10.9 FL (9.6-12.0); Monocytes % 10.5 % (1.7-12.7); NRBC # 0.03 10*3/uL; Neutrophils # 5.2 10*3/uL (1.4-7.4); Neutrophils % 54.9 % (38.7-73.9); Platelet Count 135 T/CUMM (130-400); Red Cell Distribution Width 20.6 % (9.3-17.3); White Blood Count 9.5 T/CUMM (4-12)
[2017-01-15 06:06] LABS: Band Neutrophils 5 % (0-10); Eosinophils 5 % (0-10); Lymphocytes 15 % (20-55); Myelocytes 2 %; Nucleated Red Blood Cells 1 (0-5); Segmented Neutrophils 66 % (50-85); Total Cells Counted 100
[2017-01-15 06:07] LABS: Hypochromasia 1+; Microcytosis Slight; Ovalocytes Slight; Platelet Estimate Normal
[2017-01-15 06:15] LABS: Albumin 2.6 G/DL (3.4-5.0); Bilirubin,Total 0.8 MG/DL (0.2-1.0); Calcium 7.8 MG/DL (8.5-10.1); Osmolality,Calculated 287.4 MOS/KG (273-304); Potassium 3.2 MMOL/L (3.5-5.1); Total Protein 5.3 G/DL (6.4-8.3)
--- NOTE | 2017-01-15 08:18 | Oncology Progress Note ---
Oncology Subjective PN Interval history: Patient with diffuse large cell non-Hodgkin's lymphoma admitted with febrile leukopenia and suspected sepsis. Her blood counts have risen. Blood cultures remain negative. She is hypokalemic and I am ordering supplemental potassium. Exam - Constitutional Vitals: Period Temp Pulse Resp BP Sys/[place]ams Pulse Ox Last 24 Hr 96.4 F-97.1 F 66-94 18-20 92-120/50-71 93-100 Results - Labs CBC & BMP: 01/15/17 04:43 01/15/17 04:43
[2017-01-15] MEDS: NAPROXEN 500 MG TABLET PO SCH (08:32)
[2017-01-15] MEDS: levETIRAcetam 500 MG TABLET PO SCH (08:34)
[2017-01-15] MEDS: METHOCARBAMOL 750 MG TABLET PO SCH (08:34)
[2017-01-15] MEDS: PSEUDOEPHEDRINE 30 MG TABLET PO SCH (08:34)
[2017-01-15] MEDS: PANTOPRAZOLE 40 MG TABLET PO SCH (08:35)
[2017-01-15] MEDS: LORATADINE 10 MG TABLET PO SCH (08:35)
[2017-01-15] MEDS: ACYCLOVIR 200 MG CAPSULE PO SCH (08:36)
[2017-01-15] MEDS: AMPHETAMINE PO SCH (08:39)
[2017-01-15] MEDS: DEXTROAMPHETAMINE PO SCH (08:39)
[2017-01-15] MEDS ORDERED: POTASSIUM CHLORIDE 20 MEQ TABLET PO SCH (09:00)
--- NOTE | 2017-01-15 09:14 | Discharge Summary ---
Hospital Course - Hospital Course Hospital Course: Diagnoses: #1: Febrile neutropenia/sepsis #2: Diffuse large cell CD20 positive non-Hodgkin's lymphoma on chemotherapy and responding well. #3: Cerebrovascular accident with expressive aphasia, left facial and right extremity hemiparesis due to prior thrombotic stroke followed by hemorrhagic stroke. #4: Hypokalemia This patient was admitted with febrile neutropenia. Blood cultures were negative on admission. She was started on granulocyte colony-stimulating factor and IV antibiotics and her blood work gradually improved. Her white cell count is normal and she is afebrile.Lab work today includes a white cell count of 9500 with an absolute neutrophil count of 5200. Her hemoglobin is 8.4 and her platelet count is 135,000. The patient was found to be hypokalemic during this hospital stay and will be discharged on potassium chloride 20 mEq p.o. daily. She has been on chemotherapy using Rituxan, Cytoxan, Adriamycin, vincristine and dexamethasone. She was due chemotherapy and I am scheduling it for next week. She will have an appointment for chemotherapy next week and an appointment to see me in 3 weeks for follow-up. Discharge Plan - Discharge Data Disposition: Disch To Home/Self Care Condition at Discharge: Guarded Discharge Diet: advance to your usual diet Activity: resume usual activities as tolerated Hygiene: no restrictions Weight Bearing at Discharge: weight bear as tolerated Driving: other Contact your physician if you experience:: fever over 101, Difficulty voiding, Redness or swelling, Nausea/Vomiting, Shortness of breath, Bleeding, pain uncontrolled by pain medications - Discharge Medications Continue Acyclovir [Acyclovir Cap/Tab] 400 mg PO BID Dextroamphetamine/Amphetamine [Adderall XR] 30 mg PO AC BREAKFAST Amitriptyline [Elavil] 20 mg PO BEDTIME Methocarbamol Tab [Robaxin Tab] 750 mg PO BID HYDROcodone/ACETAMIN 5-325 [[place] 5-325] 2 tablet PO Q6H PRN #30 tablet PRN Reason: Pain Loratadine 10 mg PO DAILY Guaifenesin/Pseudoephedrne HCl [Mucinex D ER 600-60 mg Tablet] 1 each PO DAILY levETIRAcetam [Levetiracetam] 1,000 mg PO BID Pantoprazole Tab [Protonix Tab] 40 mg PO DAILY Naproxen [Naprosyn Tab] 500 mg PO DAILY Atorvastatin [Lipitor] 10 mg PO BEDTIME - Follow Up or Referral - Forms/Instructions Additional Discharge Instructions: Discharge. Schedule the patient for chemotherapy next week and for Neulasta to be given the day after chemotherapy. Appointment to see me in 3 weeks with CBC, CMP and LDH. Exam - Constitutional Vitals: Period Temp Pulse Resp BP Sys/Mcwilliams Pulse Ox Last 24 Hr 96.4 F-97.1 F 66-94 18-20 92-120/50-71 93-100 Discharge Results Procedures and tests throughout hospitalization: Pending Orders 01/16/17 04:00 Comp Blood Count Auto Diff IN AM Comprehensive Metabolic Panel IN AM Labs on day of discharge: Labs from last 24 hours 01/15/17 01/15/17 01/14/17 04:43 04:43 11:40 WBC 9.5 RBC 2.90 L Hgb 8.4 L Hct 25.1 L MCV 86.6 L MCH 29 MCHC 33.5 RDW 20.6 H Plt Count 135 MPV 10.9 Neut % (Auto) 54.9 Lymph % (Auto) 12.7 L [place] % (Auto) 10.5 Eos % (Auto) 1.1 Baso % (Auto) 1.0 H Neut # (Auto) 5.2 Lymph # (Auto) 1.2 L [place] # (Auto) 1.0 H Eos # (Auto) 0.1 Baso # (Auto) 0.1 Total Counted 100 Immature Gran % 19.8 Nucleated RBC % 0.3 Immature Gran # 1.87 Segmented Neutrophils 66 Band Neutrophils 5 Lymphocytes 15 L Monocytes 7 Eosinophils 5 Myelocytes 2 Nucleated RBCs 1 Nucleated RBCs # 0.03 Platelet Estimate Normal Hypochromasia 1+ Microcytosis Slight Ovalocytes Slight Morphology Comment Sodium 147 H Potassium 3.2 L Chloride 110 H Carbon Dioxide 28 Anion Gap 12.2 BUN 1 L Creatinine 0.60 GFR Calculation 123 BUN/Creatinine Ratio 1.00 L Glucose 100 Calculated Osmolality 287.4 Calcium 7.8 L Total Bilirubin 0.80 AST 16 ALT 31 Alkaline Phosphatase 108 Lactate Dehydrogenase 230 Total Protein 5.3 L Albumin 2.6 L Globulin 2.7 Albumin/Globulin Ratio 0.9 L Urine Color Light yellow Urine Appearance Clear Urine pH 5.0 Ur Specific [place] 1.008 Urine Protein Negative Urine Glucose (UA) Negative Urine Ketones Negative Urine Blood Negative Urine Nitrate Negative Urine Bilirubin Negative Urine Urobilinogen < 2.0 H Urine Leukocytes Negative Urine WBC 2 Ur Squamous Epith Cells Occasional Ur Culture Indicated? Not indicated DS: Provider Date of admission: 01/09/17 23:32 Primary care physician: . No PCP Attending physician on admission: Jayro Temple MD Discharging clinician: Jayro Temple MD
[2017-01-15 09:30] VITALS: BP 100/59
[2017-01-15] MEDS ORDERED: HEPARIN LOCK FLUSH 500 UNIT/5 ML SYRINGE IV ONE (09:36)
== END 2017-01-15 10:40 | disposition home or self-care (01) | DRG 872 ==
LOC: N.ED 20:34 → N.EDINP 23:32 → N.4E 23:56
PROVIDERS: ADMIT Specialist; ATTEND Specialist

== ENCOUNTER 2018-04-02 12:43 | Inpatient (IN) ==
[2018-04-02 14:27] LABS: Basophils # 0.1 10*3/uL (0.0-0.2); Basophils % 0.9 % (0.0-0.8); Eosinophils # 0.1 10*3/uL (0.0-0.87); Eosinophils % 1.6 % (0.00-10.9); Hematocrit 40.9 VOL% (35.7-47.0); Hemoglobin 13.1 GM/DL (12.0-16.0); Immature Granulocytes % 0.2 %; Immature Granulocytes Absolute 0.01 #; Lymphocytes # 1.7 10*3/uL (1.4-4.0); Lymphocytes % 28.8 % (21.3-54.2); Mean Corpuscular Hemoglobin 29 PG (27-34); Mean Corpuscular Volume 91.3 FL (87-102); Mean Platelet Volume 10.3 FL (9.6-12.0); Monocytes # 0.4 10*3/uL (0.11-0.8); Monocytes % 6.1 % (1.7-12.7); Neutrophils # 3.6 10*3/uL (1.4-7.4); Neutrophils % 62.4 % (38.7-73.9); Platelet Count 278 T/CUMM (130-400); Red Blood Count 4.48 MC/CUMM (3.8-5.5); Red Cell Distribution Width 13.4 % (9.3-17.3); White Blood Count 5.8 T/CUMM (4-12)
[2018-04-02 14:46] LABS: Alanine Aminotransferase 31 U/L (13-56); Albumin 3.1 G/DL (3.4-5.0); Alkaline Phosphatase 137 U/L (45-117); Aspartate Amino Transferase 20 U/L (0-37); Bilirubin,Total < 0.39 MG/DL (0.2-1.0); Blood Urea Nitrogen 8 MG/DL (7-18); Calcium 8.4 MG/DL (8.5-10.1); Glucose 118 MG/DL (74-106); Osmolality,Calculated 284.8 MOS/KG (273-304); Potassium 4.4 MMOL/L (3.5-5.1); Sodium 144 MMOL/L (136-145)
[2018-04-02 15:09] LABS: Apearance,Urine Slightly Hazy (Clear); Bacteria,Urine Occasional /HPF (Few); Bilirubin,Urine Negative (Negative); Blood, Urine Large mg/dL (Negative); Glucose,Urine (UA) Negative (Negative); Ketones,Urine Negative (Negative); Mucus,Urine Occasional /LPF (Occasional); Nitrite,Urine Negative (Negative); Protein,Urine Negative; RBC,Urine 133 /HPF (0-4); Urine Color Yellow (Yellow); Urine Specific Gravity 1.014 (1.001-1.035); Urine Urobilinogen < 2.0 EU/DL (0.2-1.0)
[2018-04-02] MEDS ORDERED: HYDROmorphone 2 MG TABLET PO PRN (17:52)
[2018-04-02] MEDS ORDERED: ACETAMINOPHEN 325 MG TABLET PO PRN ×2 (17:52)
[2018-04-02] MEDS ORDERED: POLYETHYLENE GLYCOL POWDER 17 GM PACK PO PRN (17:52)
[2018-04-02] MEDS ORDERED: ONDANSETRON 4 MG/2 ML VIAL IV PRN (17:52)
[2018-04-02] MEDS: SODIUM CHLORIDE 0.9% 1,000 ML IV SCH (18:26)
[2018-04-02] MEDS: metroNIDAZOLE INJ 500 MG in PREMIX 1 EACH IV SCH (18:26)
[2018-04-02] MEDS: AMPICILLIN/SULBACTAM 3,000 MG in SODIUM CHLORIDE 0.9% 100 ML IV SCH (21:13)
[2018-04-02] MEDS: DOCUSATE SODIUM 100 MG CAPSULE PO SCH (21:14)
[2018-04-02] MEDS: levETIRAcetam 500 MG TABLET PO SCH (21:14)
[2018-04-02] MEDS: PANTOPRAZOLE 40 MG TABLET PO SCH (21:15)
[2018-04-02] MEDS: AMITRIPTYLINE 10 MG TABLET PO SCH (21:15)
[2018-04-02] MEDS: ACYCLOVIR 200 MG CAPSULE PO SCH (21:15)
[2018-04-02] MEDS: ENOXAPARIN 40 MG/0.4 ML SYRINGE SUBCUT SCH (21:15)
[2018-04-02] MEDS: ATORVASTATIN 10 MG TABLET PO SCH (21:15)
[2018-04-03] MEDS: metroNIDAZOLE INJ 500 MG in PREMIX 1 EACH IV SCH ×3 (02:49→17:54)
[2018-04-03] MEDS: AMPICILLIN/SULBACTAM 3,000 MG in SODIUM CHLORIDE 0.9% 100 ML IV SCH ×3 (05:07→21:24)
[2018-04-03] MEDS: SODIUM CHLORIDE 0.9% 1,000 ML IV SCH ×4 (05:07→16:52)
[2018-04-03 06:16] LABS: Basophils # 0.1 10*3/uL (0.0-0.2); Eosinophils # 0.1 10*3/uL (0.0-0.87); Eosinophils % 2.1 % (0.00-10.9); Hemoglobin 11.8 GM/DL (12.0-16.0); Immature Granulocytes % 0.2 %; Immature Granulocytes Absolute 0.01 #; Lymphocytes # 1.7 10*3/uL (1.4-4.0); Mean Corpuscular HGB Conc 32.8 GM/DL (32-36); Mean Corpuscular Hemoglobin 29 PG (27-34); Mean Corpuscular Volume 88.9 FL (87-102); Mean Platelet Volume 10.8 FL (9.6-12.0); Monocytes # 0.4 10*3/uL (0.11-0.8); Monocytes % 8.8 % (1.7-12.7); Neutrophils # 2.6 10*3/uL (1.4-7.4); Neutrophils % 53.9 % (38.7-73.9); Platelet Count 258 T/CUMM (130-400); Red Blood Count 4.05 MC/CUMM (3.8-5.5); Red Cell Distribution Width 13.6 % (9.3-17.3); White Blood Count 4.9 T/CUMM (4-12)
[2018-04-03] MEDS ORDERED: AMPHETAMINE PO SCH (07:30)
[2018-04-03] MEDS ORDERED: [UNRECOGNIZED DRUG - OTHER] PO SCH (07:30)
[2018-04-03] MEDS ORDERED: DEXTROAMPHETAMINE PO SCH (07:30)
[2018-04-03] MEDS: levETIRAcetam 500 MG TABLET PO SCH ×2 (08:24→21:28)
[2018-04-03] MEDS: LORATADINE 10 MG TABLET PO SCH (08:24)
[2018-04-03] MEDS: ACYCLOVIR 200 MG CAPSULE PO SCH ×2 (08:25→21:29)
[2018-04-03] MEDS: LINACLOTIDE 145 MCG CAPSULE PO SCH (08:25)
[2018-04-03] MEDS: DOCUSATE SODIUM 100 MG CAPSULE PO SCH ×2 (08:25→21:29)
[2018-04-03] MEDS: NAPROXEN 500 MG TABLET PO SCH (08:25)
[2018-04-03] MEDS: POTASSIUM CHLORIDE 20 MEQ TABLET PO SCH (08:25)
[2018-04-03] MEDS ORDERED: PANTOPRAZOLE 40 MG TABLET PO SCH (09:00)
[2018-04-03] MEDS ORDERED: ZINC OXIDE PASTE 113 GM TUBE TOP PRN (11:52)
[2018-04-03] MEDS: AMITRIPTYLINE 10 MG TABLET PO SCH (21:28)
[2018-04-03] MEDS: ATORVASTATIN 10 MG TABLET PO SCH (21:29)
[2018-04-03] MEDS: PANTOPRAZOLE 40 MG TABLET PO SCH (21:29)
[2018-04-03] MEDS: ENOXAPARIN 40 MG/0.4 ML SYRINGE SUBCUT SCH (21:33)
[2018-04-04] MEDS: metroNIDAZOLE INJ 500 MG in PREMIX 1 EACH IV SCH ×3 (01:49→17:32)
[2018-04-04] MEDS: SODIUM CHLORIDE 0.9% 1,000 ML IV SCH ×3 (01:51→17:32)
[2018-04-04] MEDS: ONDANSETRON 4 MG/2 ML VIAL IV PRN ×2 (03:11→09:01)
[2018-04-04] MEDS: AMPICILLIN/SULBACTAM 3,000 MG in SODIUM CHLORIDE 0.9% 100 ML IV SCH ×3 (04:32→21:26)
[2018-04-04 07:29] LABS: Eosinophils # 0.1 10*3/uL (0.0-0.87); Eosinophils % 2.4 % (0.00-10.9); Hematocrit 37.7 VOL% (35.7-47.0); Hemoglobin 12.3 GM/DL (12.0-16.0); Immature Granulocytes % 0.2 %; Immature Granulocytes Absolute 0.01 #; Lymphocytes # 1.4 10*3/uL (1.4-4.0); Lymphocytes % 34.4 % (21.3-54.2); Mean Corpuscular HGB Conc 32.6 GM/DL (32-36); Mean Corpuscular Hemoglobin 30 PG (27-34); Mean Corpuscular Volume 91.3 FL (87-102); Mean Platelet Volume 10.5 FL (9.6-12.0); Monocytes # 0.3 10*3/uL (0.11-0.8); Monocytes % 6.9 % (1.7-12.7); Neutrophils # 2.3 10*3/uL (1.4-7.4); Neutrophils % 55.1 % (38.7-73.9); Platelet Count 256 T/CUMM (130-400); Red Blood Count 4.13 MC/CUMM (3.8-5.5); Red Cell Distribution Width 13.5 % (9.3-17.3); White Blood Count 4.2 T/CUMM (4-12)
[2018-04-04 08:01] LABS: Albumin 2.6 G/DL (3.4-5.0); Bilirubin,Total 0.4 MG/DL (0.2-1.0); Calcium 7.9 MG/DL (8.5-10.1); Osmolality,Calculated 282.8 MOS/KG (273-304); Potassium 3.5 MMOL/L (3.5-5.1); Total Protein 6.3 G/DL (6.4-8.3)
[2018-04-04] MEDS: DOCUSATE SODIUM 100 MG CAPSULE PO SCH ×2 (08:58→21:29)
[2018-04-04] MEDS: POTASSIUM CHLORIDE 20 MEQ TABLET PO SCH (08:58)
[2018-04-04] MEDS: levETIRAcetam 500 MG TABLET PO SCH ×2 (08:58→21:29)
[2018-04-04] MEDS: NAPROXEN 500 MG TABLET PO SCH (09:00)
[2018-04-04] MEDS: LORATADINE 10 MG TABLET PO SCH (09:00)
[2018-04-04] MEDS: ACYCLOVIR 200 MG CAPSULE PO SCH ×2 (09:01→21:29)
[2018-04-04] MEDS: LINACLOTIDE 145 MCG CAPSULE PO SCH (09:01)
[2018-04-04] MEDS: AMITRIPTYLINE 10 MG TABLET PO SCH (21:29)
[2018-04-04] MEDS: PANTOPRAZOLE 40 MG TABLET PO SCH (21:29)
[2018-04-04] MEDS: ENOXAPARIN 40 MG/0.4 ML SYRINGE SUBCUT SCH (21:30)
[2018-04-04] MEDS: ATORVASTATIN 10 MG TABLET PO SCH (21:30)
[2018-04-05] MEDS: metroNIDAZOLE INJ 500 MG in PREMIX 1 EACH IV SCH ×3 (01:32→18:32)
[2018-04-05] MEDS: SODIUM CHLORIDE 0.9% 1,000 ML IV SCH ×3 (01:33→17:20)
[2018-04-05] MEDS: AMPICILLIN/SULBACTAM 3,000 MG in SODIUM CHLORIDE 0.9% 100 ML IV SCH ×3 (05:22→20:43)
[2018-04-05] MEDS ORDERED: ALUMINUM/MAGNES/SIMETH MAX STR 30 ML UDCUP PO PRN (08:08)
[2018-04-05] MEDS: LINACLOTIDE 145 MCG CAPSULE PO SCH (09:56)
[2018-04-05] MEDS: levETIRAcetam 500 MG TABLET PO SCH ×2 (09:57→20:42)
[2018-04-05] MEDS: ACYCLOVIR 200 MG CAPSULE PO SCH ×2 (10:00→20:42)
[2018-04-05] MEDS: POTASSIUM CHLORIDE 20 MEQ TABLET PO SCH (10:00)
[2018-04-05] MEDS: DOCUSATE SODIUM 100 MG CAPSULE PO SCH ×2 (10:01→20:42)
[2018-04-05] MEDS: NAPROXEN 500 MG TABLET PO SCH (10:01)
[2018-04-05] MEDS: LORATADINE 10 MG TABLET PO SCH (10:01)
[2018-04-05] MEDS: ENOXAPARIN 40 MG/0.4 ML SYRINGE SUBCUT SCH (20:41)
[2018-04-05] MEDS: AMITRIPTYLINE 10 MG TABLET PO SCH (20:42)
[2018-04-05] MEDS: ATORVASTATIN 10 MG TABLET PO SCH (20:43)
[2018-04-05] MEDS: PANTOPRAZOLE 40 MG TABLET PO SCH (20:43)
[2018-04-06] MEDS: metroNIDAZOLE INJ 500 MG in PREMIX 1 EACH IV SCH ×3 (01:49→18:25)
[2018-04-06] MEDS: AMPICILLIN/SULBACTAM 3,000 MG in SODIUM CHLORIDE 0.9% 100 ML IV SCH ×3 (04:19→20:04)
[2018-04-06 05:08] LABS: Basophils # 0.1 10*3/uL (0.0-0.2); Basophils % 1.1 % (0.0-0.8); Eosinophils # 0.1 10*3/uL (0.0-0.87); Eosinophils % 2.2 % (0.00-10.9); Hematocrit 34.8 VOL% (35.7-47.0); Hemoglobin 12.3 GM/DL (12.0-16.0); Immature Granulocytes % 0.2 %; Immature Granulocytes Absolute 0.01 #; Lymphocytes # 1.4 10*3/uL (1.4-4.0); Lymphocytes % 30.3 % (21.3-54.2); Mean Corpuscular HGB Conc 35.3 GM/DL (32-36); Mean Corpuscular Hemoglobin 33 PG (27-34); Mean Corpuscular Volume 92.1 FL (87-102); Mean Platelet Volume 10.4 FL (9.6-12.0); Monocytes # 0.4 10*3/uL (0.11-0.8); Monocytes % 8.5 % (1.7-12.7); Neutrophils # 2.6 10*3/uL (1.4-7.4); Neutrophils % 57.7 % (38.7-73.9); Platelet Count 232 T/CUMM (130-400); Red Blood Count 3.78 MC/CUMM (3.8-5.5); Red Cell Distribution Width 14.1 % (9.3-17.3); White Blood Count 4.5 T/CUMM (4-12)
[2018-04-06 05:31] LABS: Albumin 2.6 G/DL (3.4-5.0); Bilirubin,Total 0.4 MG/DL (0.2-1.0); Calcium 7.9 MG/DL (8.5-10.1); Osmolality,Calculated 283.7 MOS/KG (273-304); Potassium 3.3 MMOL/L (3.5-5.1); Total Protein 5.8 G/DL (6.4-8.3)
[2018-04-06] MEDS ORDERED: MAGNESIUM CITRATE 300 ML BOTTLE PO ONE (07:54)
[2018-04-06] MEDS: SODIUM CHLORIDE 0.9% 1,000 ML IV SCH ×3 (09:49→17:31)
[2018-04-06] MEDS: levETIRAcetam 500 MG TABLET PO SCH ×2 (11:35→20:06)
[2018-04-06] MEDS: POTASSIUM CHLORIDE 20 MEQ TABLET PO SCH (11:37)
[2018-04-06] MEDS: LORATADINE 10 MG TABLET PO SCH (11:37)
[2018-04-06] MEDS: NAPROXEN 500 MG TABLET PO SCH (11:37)
[2018-04-06] MEDS: ACYCLOVIR 200 MG CAPSULE PO SCH ×2 (11:37→20:08)
[2018-04-06] MEDS: DOCUSATE SODIUM 100 MG CAPSULE PO SCH ×2 (11:38→20:07)
[2018-04-06] MEDS: LINACLOTIDE 145 MCG CAPSULE PO SCH (11:38)
[2018-04-06] MEDS: ENOXAPARIN 40 MG/0.4 ML SYRINGE SUBCUT SCH (20:03)
[2018-04-06] MEDS: AMITRIPTYLINE 10 MG TABLET PO SCH (20:06)
[2018-04-06] MEDS: ATORVASTATIN 10 MG TABLET PO SCH (20:07)
[2018-04-06] MEDS: PANTOPRAZOLE 40 MG TABLET PO SCH (20:07)
[2018-04-07] MEDS: metroNIDAZOLE INJ 500 MG in PREMIX 1 EACH IV SCH ×2 (01:59→09:09)
[2018-04-07] MEDS: SODIUM CHLORIDE 0.9% 1,000 ML IV SCH ×2 (01:59→13:24)
[2018-04-07] MEDS: AMPICILLIN/SULBACTAM 3,000 MG in SODIUM CHLORIDE 0.9% 100 ML IV SCH (04:28)
[2018-04-07] MEDS: HYDROmorphone 2 MG/1 ML VIAL IV PRN ×2 (04:28→09:01)
[2018-04-07] MEDS: DOCUSATE SODIUM 100 MG CAPSULE PO SCH (09:00)
[2018-04-07] MEDS: POTASSIUM CHLORIDE 20 MEQ TABLET PO SCH (09:00)
[2018-04-07] MEDS: levETIRAcetam 500 MG TABLET PO SCH (09:00)
[2018-04-07] MEDS: ACYCLOVIR 200 MG CAPSULE PO SCH (09:00)
[2018-04-07] MEDS: NAPROXEN 500 MG TABLET PO SCH (09:01)
[2018-04-07] MEDS: LORATADINE 10 MG TABLET PO SCH (09:01)
[2018-04-07] MEDS: LINACLOTIDE 145 MCG CAPSULE PO SCH (09:05)
[2018-04-07 14:18] VITALS: BP 123/83
== END 2018-04-07 15:10 | disposition home or self-care (01) | DRG 392 ==
LOC: N.ED 12:43 → N.EDINP 15:49 → N.5E 17:50
PROVIDERS: ADMIT Family Medicine; ATTEND Family Medicine

== ENCOUNTER 2018-04-29 09:37 | Inpatient (IN) ==
[~2018-04-29 09:37] MED LIST: LACTATED RINGERS 1,000 ML IV SCH; cefTRIAXone 1,000 MG in SYRINGE 1 EACH IV ONE
[2018-04-29] MEDS ORDERED: cefTRIAXone 1,000 MG VIAL ONE (11:40)
[2018-04-29] MEDS ORDERED: SEVOFLURANE 1 UNIT/15 MINUTE INH ONE (13:27)
[2018-04-29] MEDS ORDERED: PROPOFOL 200 MG/20 ML VIAL IV ONE (13:27)
[2018-04-29] MEDS ORDERED: ONDANSETRON 4 MG/2 ML VIAL ONE ×2 (13:27→13:35)
[2018-04-29] MEDS ORDERED: GLYCOPYRROLATE 0.4 MG/2 ML VIAL ONE (13:27)
[2018-04-29] MEDS ORDERED: fentaNYL 100 MCG/2 ML VIAL ONE (13:27)
[2018-04-29] MEDS ORDERED: NEOSTIGMINE 10 MG/10 ML VIAL ONE (13:28)
[2018-04-29] MEDS ORDERED: ROCURONIUM 100 MG/10 ML VIAL IV ONE (13:28)
[2018-04-29] MEDS ORDERED: HYDROmorphone 2 MG/1 ML VIAL ONE (13:35)
[2018-04-29] MEDS ORDERED: ONDANSETRON 4 MG/2 ML VIAL IV PRN ×2 (13:39→14:42)
[2018-04-29] MEDS: HYDROmorphone 2 MG/1 ML VIAL IV PRN ×4 (13:41→14:15)
[2018-04-29] MEDS ORDERED: ALBUTEROL/IPRATROPIUM 3 ML NEB RESP TX ONE ×2 (13:46→15:56)
[2018-04-29] MEDS ORDERED: DEXAMETHASONE 10 MG/1 ML VIAL IV ONE (13:52)
[2018-04-29] MEDS ORDERED: PROMETHAZINE 25 MG/1 ML VIAL IM PRN (14:42)
[2018-04-29] MEDS ORDERED: PROMETHAZINE 25 MG TABLET PO PRN (14:45)
[2018-04-29] MEDS ORDERED: SODIUM CHLORIDE 0.9% 100 ML IV ONE (15:11)
[2018-04-29] MEDS ORDERED: RACEPINEPHRINE 0.5 ML NEB RESP TX ONE (16:25)
[2018-04-29] MEDS ORDERED: DEXAMETHASONE 4 MG/1 ML VIAL IV ONE (16:27)
[2018-04-29 17:09] LABS: Allen Test Positive
[2018-04-29 17:12] LABS: ABG Base Excess -2.3 MMOL/L (-2.5-2.5); ABG HCO3 22.4 MMOL/L (20-26); ABG Oxygen Saturation 95.7 % (95-100); ABG PCO2 60.4 MM HG (35-48); ABG PH 7.254 (7.35-7.45); ABG PO2 94.9 MM HG (80-95); ABG TCO2 23.3 MMOL/L (23-27)
[2018-04-29 18:15] LABS: Alanine Aminotransferase 50 U/L (13-56); Albumin 3.4 G/DL (3.4-5.0); Alkaline Phosphatase 134 U/L (45-117); Aspartate Amino Transferase 45 U/L (0-37); Bilirubin,Indirect 0.2 MG/DL (0.0-1.0); Bilirubin,Total < 0.39 MG/DL (0.2-1.0); Total Protein 7.5 G/DL (6.4-8.3)
[2018-04-29] MEDS: ACETAMINOPHEN 325 MG TABLET PO SCH ×2 (18:21→20:18)
[2018-04-29 18:35] LABS: Calcium 8.3 MG/DL (8.5-10.1); Potassium 3.6 MMOL/L (3.5-5.1)
[2018-04-29] MEDS: SODIUM CHLORIDE 0.9% 1,000 ML IV SCH (18:37)
[2018-04-29] MEDS: levETIRAcetam 500 MG TABLET PO SCH (20:17)
[2018-04-29] MEDS: ACYCLOVIR 200 MG CAPSULE PO SCH (20:17)
[2018-04-29] MEDS: POTASSIUM CHLORIDE 20 MEQ/15 ML UDCUP PER TUBE PRN (20:18)
[2018-04-29] MEDS: ATORVASTATIN 10 MG TABLET PO SCH (20:18)
[2018-04-29 20:28] LABS: Apearance,Urine CLOUDY (Clear); Bilirubin,Urine Negative (Negative); Blood, Urine Large mg/dL (Negative); Glucose,Urine (UA) 50 mg/dL (Negative); Ketones,Urine Negative (Negative); Nitrite,Urine Negative (Negative); Protein,Urine 100 MG/DL; RBC,Urine 1546 /HPF (0-4); Urine Color Amber (Yellow); Urine Specific Gravity 1.012 (1.001-1.035); Urine Urobilinogen < 2.0 EU/DL (0.2-1.0); WBC,Urine 59 /HPF (0-6)
[2018-04-29 21:02] LABS: Ammonia 22 UMOL/L (11-32)
[2018-04-30 00:55] LABS: Basophils % 0.3 % (0.0-0.8); Eosinophils % 0.1 % (0.00-10.9); Hematocrit 46.9 VOL% (35.7-47.0); Hemoglobin 14.8 GM/DL (12.0-16.0); Immature Granulocytes % 0.4 %; Immature Granulocytes Absolute 0.04 #; Lymphocytes # 0.9 10*3/uL (1.4-4.0); Lymphocytes % 9.4 % (21.3-54.2); Mean Corpuscular HGB Conc 31.6 GM/DL (32-36); Mean Corpuscular Hemoglobin 30 PG (27-34); Mean Corpuscular Volume 95.1 FL (87-102); Monocytes # 0.1 10*3/uL (0.11-0.8); Monocytes % 1.1 % (1.7-12.7); Neutrophils # 8.9 10*3/uL (1.4-7.4); Neutrophils % 88.7 % (38.7-73.9); Platelet Count 315 T/CUMM (130-400); Red Blood Count 4.93 MC/CUMM (3.8-5.5); Red Cell Distribution Width 14.5 % (9.3-17.3)
[2018-04-30] MEDS: POTASSIUM CHLORIDE 20 MEQ/15 ML UDCUP PER TUBE PRN (01:16)
[2018-04-30] MEDS: ALBUTEROL/IPRATROPIUM 3 ML NEB RESP TX SCH ×4 (01:24→19:21)
[2018-04-30] MEDS: ACETAMINOPHEN 325 MG TABLET PO SCH ×2 (03:47→08:01)
[2018-04-30] MEDS: methylPREDNISolone SOD SUC 40 MG/1 ML VIAL IV SCH ×2 (06:48→18:33)
[2018-04-30] MEDS: PIPERACILLIN/TAZOBACTAM 3,375 MG in SODIUM CHLORIDE 0.9% 100 ML IV SCH ×3 (06:49→23:36)
[2018-04-30 07:52] LABS: ABG Base Excess 0.8 MMOL/L (-2.5-2.5); ABG Oxygen Saturation 95.4 % (95-100); ABG PCO2 45.8 MM HG (35-48); ABG TCO2 23.4 MMOL/L (23-27)
[2018-04-30] MEDS: levETIRAcetam 500 MG TABLET PO SCH ×2 (07:59→20:30)
[2018-04-30] MEDS: ACYCLOVIR 200 MG CAPSULE PO SCH ×2 (08:00→20:31)
[2018-04-30] MEDS: ASPIRIN EC 81 MG TABLET PO SCH (08:01)
[2018-04-30] MEDS: TAMSULOSIN 0.4 MG CAPSULE PO SCH (08:01)
[2018-04-30] MEDS: SODIUM CHLORIDE 0.9% 1,000 ML IV SCH ×2 (08:04→20:31)
[2018-04-30] MEDS: LINACLOTIDE 145 MCG CAPSULE PO PRN (09:29)
[2018-04-30] MEDS ORDERED: ACETAMINOPHEN 325 MG TABLET PO PRN (10:24)
[2018-04-30] MEDS: ATORVASTATIN 10 MG TABLET PO SCH (20:31)
[2018-05-01] MEDS: ALBUTEROL/IPRATROPIUM 3 ML NEB RESP TX SCH ×4 (02:00→19:54)
[2018-05-01 04:27] LABS: Basophils % 0.1 % (0.0-0.8); Hematocrit 35.9 VOL% (35.7-47.0); Hemoglobin 12.4 GM/DL (12.0-16.0); Immature Granulocytes % 0.7 %; Immature Granulocytes Absolute 0.09 #; Lymphocytes # 0.9 10*3/uL (1.4-4.0); Mean Corpuscular HGB Conc 34.5 GM/DL (32-36); Mean Corpuscular Hemoglobin 31 PG (27-34); Mean Corpuscular Volume 90.9 FL (87-102); Monocytes # 0.3 10*3/uL (0.11-0.8); Monocytes % 2.4 % (1.7-12.7); Neutrophils % 89.8 % (38.7-73.9); Platelet Count 297 T/CUMM (130-400); Red Blood Count 3.95 MC/CUMM (3.8-5.5); Red Cell Distribution Width 14.1 % (9.3-17.3); White Blood Count 13.4 T/CUMM (4-12)
[2018-05-01 04:40] LABS: Calcium 8.4 MG/DL (8.5-10.1); Osmolality,Calculated 292.4 MOS/KG (273-304)
[2018-05-01] MEDS: PIPERACILLIN/TAZOBACTAM 3,375 MG in SODIUM CHLORIDE 0.9% 100 ML IV SCH ×3 (06:11→22:46)
[2018-05-01] MEDS: methylPREDNISolone SOD SUC 40 MG/1 ML VIAL IV SCH ×2 (06:11→19:12)
[2018-05-01] MEDS: HYDROmorphone 2 MG/1 ML VIAL IV PRN ×4 (07:37→20:29)
[2018-05-01] MEDS: LINACLOTIDE 145 MCG CAPSULE PO PRN (09:18)
[2018-05-01] MEDS: TAMSULOSIN 0.4 MG CAPSULE PO SCH (09:19)
[2018-05-01] MEDS: levETIRAcetam 500 MG TABLET PO SCH ×2 (09:19→20:30)
[2018-05-01] MEDS: ACYCLOVIR 200 MG CAPSULE PO SCH ×2 (09:20→20:31)
[2018-05-01] MEDS: ASPIRIN EC 81 MG TABLET PO SCH (09:20)
[2018-05-01] MEDS: SODIUM CHLORIDE 0.45% 1,000 ML IV SCH (09:22)
[2018-05-01] MEDS: SODIUM CHLORIDE 0.9% 1,000 ML IV SCH (10:03)
[2018-05-01] MEDS: ZINC OXIDE PASTE 113 GM TUBE TOP SCH ×3 (14:03→22:47)
[2018-05-01] MEDS: ATORVASTATIN 10 MG TABLET PO SCH (20:31)
[2018-05-02] MEDS: ALBUTEROL/IPRATROPIUM 3 ML NEB RESP TX SCH ×4 (01:06→19:18)
[2018-05-02 03:48] LABS: Hematocrit 36.2 VOL% (35.7-47.0); Hemoglobin 11.9 GM/DL (12.0-16.0); Immature Granulocytes % 0.6 %; Immature Granulocytes Absolute 0.06 #; Lymphocytes # 0.6 10*3/uL (1.4-4.0); Lymphocytes % 6.2 % (21.3-54.2); Mean Corpuscular HGB Conc 32.9 GM/DL (32-36); Mean Corpuscular Hemoglobin 30 PG (27-34); Mean Corpuscular Volume 90.3 FL (87-102); Monocytes # 0.1 10*3/uL (0.11-0.8); Monocytes % 1.5 % (1.7-12.7); Neutrophils # 8.8 10*3/uL (1.4-7.4); Neutrophils % 91.7 % (38.7-73.9); Platelet Count 245 T/CUMM (130-400); Red Blood Count 4.01 MC/CUMM (3.8-5.5); Red Cell Distribution Width 14.1 % (9.3-17.3); White Blood Count 9.6 T/CUMM (4-12)
[2018-05-02 04:27] LABS: Calcium 8.2 MG/DL (8.5-10.1); Osmolality,Calculated 290.7 MOS/KG (273-304); Potassium 3.8 MMOL/L (3.5-5.1)
[2018-05-02 05:41] LABS: Band Neutrophils 1 % (0-10); Lymphocytes 4 % (20-55); Segmented Neutrophils 94 % (50-85); Total Cells Counted 100
[2018-05-02] MEDS: HYDROmorphone 2 MG/1 ML VIAL IV PRN ×6 (06:38→21:06)
[2018-05-02] MEDS: methylPREDNISolone SOD SUC 40 MG/1 ML VIAL IV SCH (06:38)
[2018-05-02] MEDS: PIPERACILLIN/TAZOBACTAM 3,375 MG in SODIUM CHLORIDE 0.9% 100 ML IV SCH (06:39)
[2018-05-02] MEDS: SODIUM CHLORIDE 0.45% 1,000 ML IV SCH ×2 (06:41→17:50)
[2018-05-02] MEDS: [UNRECOGNIZED DRUG - OTHER] PO SCH (08:31)
[2018-05-02] MEDS: AMPHETAMINE PO SCH (08:31)
[2018-05-02] MEDS: DEXTROAMPHETAMINE PO SCH (08:31)
[2018-05-02] MEDS: levETIRAcetam 500 MG TABLET PO SCH ×2 (08:47→20:58)
[2018-05-02] MEDS: AMOXICILLIN/CLAV 500 MG TABLET PO SCH ×3 (08:47→20:58)
[2018-05-02] MEDS: predniSONE 20 MG TABLET PO SCH (08:47)
[2018-05-02] MEDS: TAMSULOSIN 0.4 MG CAPSULE PO SCH (08:47)
[2018-05-02] MEDS: ACYCLOVIR 200 MG CAPSULE PO SCH ×2 (08:48→20:58)
[2018-05-02] MEDS: ASPIRIN EC 81 MG TABLET PO SCH (08:48)
[2018-05-02] MEDS: ZINC OXIDE PASTE 113 GM TUBE TOP SCH ×2 (09:42→20:59)
[2018-05-02] MEDS: OXYBUTYNIN XL 15 MG TABLET PO SCH (15:55)
[2018-05-02] MEDS: LINACLOTIDE 145 MCG CAPSULE PO PRN (17:01)
[2018-05-02] MEDS: ATORVASTATIN 10 MG TABLET PO SCH (20:58)
[2018-05-03] MEDS: ALBUTEROL/IPRATROPIUM 3 ML NEB RESP TX SCH ×4 (00:02→19:31)
[2018-05-03 03:49] LABS: Basophils % 0.1 % (0.0-0.8); Hematocrit 37.2 VOL% (35.7-47.0); Hemoglobin 12.5 GM/DL (12.0-16.0); Immature Granulocytes % 0.5 %; Immature Granulocytes Absolute 0.05 #; Lymphocytes # 1.2 10*3/uL (1.4-4.0); Lymphocytes % 11.2 % (21.3-54.2); Mean Corpuscular HGB Conc 33.6 GM/DL (32-36); Mean Corpuscular Hemoglobin 31 PG (27-34); Mean Corpuscular Volume 91.4 FL (87-102); Mean Platelet Volume 10.6 FL (9.6-12.0); Monocytes # 0.8 10*3/uL (0.11-0.8); Monocytes % 7.3 % (1.7-12.7); Neutrophils # 8.5 10*3/uL (1.4-7.4); Neutrophils % 80.9 % (38.7-73.9); Platelet Count 266 T/CUMM (130-400); Red Blood Count 4.07 MC/CUMM (3.8-5.5); Red Cell Distribution Width 14.2 % (9.3-17.3); White Blood Count 10.5 T/CUMM (4-12)
[2018-05-03 04:30] LABS: Calcium 8.6 MG/DL (8.5-10.1); Osmolality,Calculated 281.3 MOS/KG (273-304); Potassium 3.4 MMOL/L (3.5-5.1)
[2018-05-03] MEDS: SODIUM CHLORIDE 0.45% 1,000 ML IV SCH ×2 (04:46→15:32)
[2018-05-03] MEDS: AMPHETAMINE PO SCH (07:20)
[2018-05-03] MEDS: [UNRECOGNIZED DRUG - OTHER] PO SCH (07:20)
[2018-05-03] MEDS: DEXTROAMPHETAMINE PO SCH (07:20)
[2018-05-03] MEDS: TAMSULOSIN 0.4 MG CAPSULE PO SCH (08:29)
[2018-05-03] MEDS: OXYBUTYNIN XL 15 MG TABLET PO SCH (08:29)
[2018-05-03] MEDS: AMOXICILLIN/CLAV 500 MG TABLET PO SCH ×3 (08:29→21:19)
[2018-05-03] MEDS: levETIRAcetam 500 MG TABLET PO SCH ×2 (08:30→21:20)
[2018-05-03] MEDS: ACYCLOVIR 200 MG CAPSULE PO SCH ×2 (08:30→21:19)
[2018-05-03] MEDS: predniSONE 20 MG TABLET PO SCH (08:30)
[2018-05-03] MEDS: ASPIRIN EC 81 MG TABLET PO SCH (08:30)
[2018-05-03] MEDS: POTASSIUM CHLORIDE 20 MEQ/15 ML UDCUP PER TUBE PRN (08:31)
[2018-05-03] MEDS: POTASSIUM CHLORIDE 20 MEQ TABLET PO PRN ×2 (11:07→14:29)
[2018-05-03] MEDS: LINACLOTIDE 145 MCG CAPSULE PO PRN (11:08)
[2018-05-03] MEDS: ZINC OXIDE PASTE 113 GM TUBE TOP SCH ×2 (11:13→21:20)
[2018-05-03] MEDS: ATORVASTATIN 10 MG TABLET PO SCH (21:20)
[2018-05-04] MEDS: ALBUTEROL/IPRATROPIUM 3 ML NEB RESP TX SCH ×2 (00:34→07:05)
[2018-05-04] MEDS: SODIUM CHLORIDE 0.45% 1,000 ML IV SCH (01:48)
[2018-05-04 04:36] LABS: Eosinophils % 0.2 % (0.00-10.9); Hematocrit 36.1 VOL% (35.7-47.0); Hemoglobin 11.9 GM/DL (12.0-16.0); Immature Granulocytes % 0.6 %; Immature Granulocytes Absolute 0.03 #; Lymphocytes # 1.3 10*3/uL (1.4-4.0); Lymphocytes % 25.3 % (21.3-54.2); Mean Corpuscular Hemoglobin 29 PG (27-34); Mean Corpuscular Volume 88.7 FL (87-102); Mean Platelet Volume 10.6 FL (9.6-12.0); Monocytes # 0.4 10*3/uL (0.11-0.8); Monocytes % 7.3 % (1.7-12.7); Neutrophils # 3.4 10*3/uL (1.4-7.4); Neutrophils % 66.6 % (38.7-73.9); Platelet Count 201 T/CUMM (130-400); Red Blood Count 4.07 MC/CUMM (3.8-5.5); White Blood Count 5.1 T/CUMM (4-12)
[2018-05-04 05:10] LABS: Osmolality,Calculated 285.7 MOS/KG (273-304); Potassium 3.3 MMOL/L (3.5-5.1)
[2018-05-04] MEDS: HYDROmorphone 2 MG/1 ML VIAL IV PRN (05:33)
[2018-05-04] MEDS: POTASSIUM CHLORIDE 20 MEQ/15 ML UDCUP PER TUBE PRN (05:39)
[2018-05-04 08:01] VITALS: BP 107/68
[2018-05-04] MEDS: OXYBUTYNIN XL 15 MG TABLET PO SCH (08:35)
[2018-05-04] MEDS: ACYCLOVIR 200 MG CAPSULE PO SCH (08:35)
[2018-05-04] MEDS: ASPIRIN EC 81 MG TABLET PO SCH (08:35)
[2018-05-04] MEDS: POTASSIUM CHLORIDE 20 MEQ TABLET PO PRN (08:35)
[2018-05-04] MEDS: AMOXICILLIN/CLAV 500 MG TABLET PO SCH (08:35)
[2018-05-04] MEDS: TAMSULOSIN 0.4 MG CAPSULE PO SCH (08:36)
[2018-05-04] MEDS: levETIRAcetam 500 MG TABLET PO SCH (08:36)
[2018-05-04] MEDS: predniSONE 20 MG TABLET PO SCH (08:36)
[2018-05-04] MEDS: [UNRECOGNIZED DRUG - OTHER] PO SCH (09:31)
[2018-05-04] MEDS: AMPHETAMINE PO SCH (09:31)
[2018-05-04] MEDS: DEXTROAMPHETAMINE PO SCH (09:31)
== END 2018-05-04 10:45 | disposition home or self-care (01) | DRG 189 ==
LOC: N.OR 09:37 → N.SDSINP 09:38 → N.ICU 17:40 → N.TELEN 05-01 16:21
PROVIDERS: ADMIT Surgery; ATTEND Surgery

== ENCOUNTER 2018-05-21 06:19 | Inpatient (IN) ==
[2018-05-20 14:59] LABS: Basophils # 0.1 10*3/uL (0.0-0.2); Basophils % 0.8 % (0.0-0.8); Eosinophils # 0.1 10*3/uL (0.0-0.87); Eosinophils % 1.7 % (0.00-10.9); Hematocrit 48.7 VOL% (35.7-47.0); Hemoglobin 15.3 GM/DL (12.0-16.0); Immature Granulocytes % 0.3 %; Immature Granulocytes Absolute 0.02 #; Lymphocytes # 1.7 10*3/uL (1.4-4.0); Lymphocytes % 22.5 % (21.3-54.2); Mean Corpuscular HGB Conc 31.4 GM/DL (32-36); Mean Corpuscular Hemoglobin 29 PG (27-34); Mean Corpuscular Volume 92.6 FL (87-102); Mean Platelet Volume 10.4 FL (9.6-12.0); Monocytes # 0.5 10*3/uL (0.11-0.8); Monocytes % 6.5 % (1.7-12.7); Neutrophils # 5.2 10*3/uL (1.4-7.4); Neutrophils % 68.2 % (38.7-73.9); Platelet Count 322 T/CUMM (130-400); Red Blood Count 5.26 MC/CUMM (3.8-5.5); Red Cell Distribution Width 13.8 % (9.3-17.3); White Blood Count 7.6 T/CUMM (4-12)
[2018-05-20 15:21] LABS: Albumin 3.2 G/DL (3.4-5.0); Bilirubin,Total 0.4 MG/DL (0.2-1.0); Calcium 9.2 MG/DL (8.5-10.1); Osmolality,Calculated 282.1 MOS/KG (273-304); Potassium 3.8 MMOL/L (3.5-5.1); Total Protein 7.7 G/DL (6.4-8.3)
[~2018-05-21 06:19] MED LIST changes: -LACTATED RINGERS 1,000 ML IV SCH; +cefTRIAXone 1,000 MG VIAL ONE; -cefTRIAXone 1,000 MG in SYRINGE 1 EACH IV ONE
[2018-05-21] MEDS ORDERED: cefTRIAXone 1,000 MG in SYRINGE 1 EACH IV ONE (06:30)
[2018-05-21] MEDS: LACTATED RINGERS 1,000 ML IV SCH (06:33)
[2018-05-21] MEDS ORDERED: SUGAMMADEX 200 MG/2 ML VIAL IV ONE (06:55)
[2018-05-21] MEDS ORDERED: ONDANSETRON 4 MG/2 ML VIAL IV PRN (08:52)
[2018-05-21] MEDS ORDERED: PROMETHAZINE 25 MG/1 ML VIAL IM PRN (08:52)
[2018-05-21] MEDS ORDERED: LINACLOTIDE 145 MCG CAPSULE PO PRN (08:55)
[2018-05-21] MEDS ORDERED: tiZANidine 4 MG TABLET PO PRN (08:55)
[2018-05-21] MEDS ORDERED: fentaNYL 100 MCG/2 ML VIAL ONE (09:16)
[2018-05-21] MEDS ORDERED: SEVOFLURANE 1 UNIT/15 MINUTE INH ONE (09:16)
[2018-05-21] MEDS ORDERED: ONDANSETRON 4 MG/2 ML VIAL ONE (09:16)
[2018-05-21] MEDS ORDERED: PROPOFOL 200 MG/20 ML VIAL IV ONE (09:16)
[2018-05-21] MEDS ORDERED: MIDAZOLAM 2 MG/2 ML VIAL ONE (09:16)
[2018-05-21] MEDS ORDERED: PHENYLEPHRINE 10 MG/1 ML VIAL IV ONE (09:17)
[2018-05-21] MEDS ORDERED: ROCURONIUM 100 MG/10 ML VIAL IV ONE (09:17)
[2018-05-21] MEDS ORDERED: ACETAMINOPHEN 1,000 MG/100 ML VIAL IV ONE (09:17)
[2018-05-21] MEDS ORDERED: KETOROLAC 30 MG/1 ML VIAL ONE (09:17)
[2018-05-21] MEDS ORDERED: LACTATED RINGERS 1,000 ML IV ONE (09:17)
[2018-05-21] MEDS: SODIUM CHLORIDE 0.9% 1,000 ML IV SCH ×2 (09:52→21:56)
[2018-05-21] MEDS: levETIRAcetam 500 MG TABLET PO SCH ×2 (11:04→20:53)
[2018-05-21] MEDS: MORPHINE 10 MG/1 ML VIAL IV PRN (13:09)
[2018-05-21] MEDS: ASPIRIN EC 81 MG TABLET PO SCH (14:27)
[2018-05-21] MEDS: POTASSIUM CHLORIDE 20 MEQ TABLET PO SCH (14:27)
[2018-05-21] MEDS: NEOMYCIN/POLYMYXIN/DEXAMETH OPH OINT 3.5 GM TUBE RIGHT EYE SCH ×3 (14:28→18:38)
[2018-05-21] MEDS: LORATADINE 10 MG TABLET PO SCH (14:28)
[2018-05-21] MEDS: TAMSULOSIN 0.4 MG CAPSULE PO SCH (14:28)
[2018-05-21] MEDS: ACYCLOVIR 200 MG CAPSULE PO SCH ×2 (14:28→20:54)
[2018-05-21] MEDS: ACETAMINOPHEN 325 MG TABLET PO SCH ×3 (14:29→20:53)
[2018-05-21] MEDS ORDERED: DIGOXIN 0.5 MG/2 ML AMP IV ONE (18:23)
[2018-05-21] MEDS ORDERED: SODIUM CHLORIDE 0.9% 1,000 ML IV ONE (19:40)
[2018-05-21 20:01] LABS: Troponin I Only < 0.015 NG/ML (0.00-0.045)
[2018-05-21] MEDS: PREGABALIN 100 MG CAPSULE PO SCH (20:53)
[2018-05-21] MEDS: OXYBUTYNIN XL 15 MG TABLET PO SCH (20:53)
[2018-05-21] MEDS: ATORVASTATIN 10 MG TABLET PO SCH (20:53)
[2018-05-22] MEDS: SODIUM CHLORIDE 0.9% 1,000 ML IV SCH ×4 (00:07→21:00)
[2018-05-22 00:50] LABS: Apearance,Urine CLOUDY (Clear); Bilirubin,Urine Negative (Negative); Blood, Urine Large mg/dL (Negative); Glucose,Urine (UA) Negative (Negative); Ketones,Urine Negative (Negative); Mucus,Urine Many /LPF (Occasional); Nitrite,Urine Negative (Negative); Protein,Urine 100 MG/DL; RBC,Urine 2771 /HPF (0-4); Urine Color Amber (Yellow); Urine Specific Gravity 1.016 (1.001-1.035); Urine Urobilinogen < 2.0 EU/DL (0.2-1.0); WBC,Urine 650 /HPF (0-6)
[2018-05-22] MEDS: ACETAMINOPHEN 325 MG TABLET PO SCH ×4 (03:57→20:34)
[2018-05-22] MEDS: LACTATED RINGERS 1,000 ML IV SCH (05:34)
[2018-05-22 06:27] LABS: Basophils % 0.3 % (0.0-0.8); Hemoglobin 11.5 GM/DL (12.0-16.0); Immature Granulocytes % 0.8 %; Immature Granulocytes Absolute 0.09 #; Lymphocytes # 0.3 10*3/uL (1.4-4.0); Lymphocytes % 2.4 % (21.3-54.2); Mean Corpuscular HGB Conc 31.1 GM/DL (32-36); Mean Corpuscular Hemoglobin 29 PG (27-34); Mean Corpuscular Volume 93.2 FL (87-102); Mean Platelet Volume 10.9 FL (9.6-12.0); Monocytes # 0.3 10*3/uL (0.11-0.8); Monocytes % 2.4 % (1.7-12.7); Neutrophils # 10.4 10*3/uL (1.4-7.4); Neutrophils % 94.1 % (38.7-73.9); Platelet Count 179 T/CUMM (130-400); Red Blood Count 3.97 MC/CUMM (3.8-5.5); Red Cell Distribution Width 13.9 % (9.3-17.3)
[2018-05-22 06:47] LABS: Calcium 7.3 MG/DL (8.5-10.1); Osmolality,Calculated 283.8 MOS/KG (273-304); Potassium 4.3 MMOL/L (3.5-5.1)
[2018-05-22 06:49] LABS: Band Neutrophils 12 % (0-10); Hypochromasia 1+; Lymphocytes 1 % (20-55); Platelet Estimate Normal; Segmented Neutrophils 82 % (50-85); Total Cells Counted 100
[2018-05-22] MEDS ORDERED: cefTRIAXone 1,000 MG in SYRINGE 1 EACH IV SCH (08:00)
[2018-05-22] MEDS: TAMSULOSIN 0.4 MG CAPSULE PO SCH (08:26)
[2018-05-22] MEDS: LORATADINE 10 MG TABLET PO SCH (08:26)
[2018-05-22] MEDS: ACYCLOVIR 200 MG CAPSULE PO SCH ×2 (08:26→20:34)
[2018-05-22] MEDS: POTASSIUM CHLORIDE 20 MEQ TABLET PO SCH (08:26)
[2018-05-22] MEDS: Dextroamphetamine/Amphetamine [Adderall Xr 30 Mg Capsule] PO SCH (08:26)
[2018-05-22] MEDS: ASPIRIN EC 81 MG TABLET PO SCH (08:27)
[2018-05-22] MEDS: levETIRAcetam 500 MG TABLET PO SCH ×2 (08:27→20:34)
[2018-05-22] MEDS: GENTAMICIN INJ 140 MG in SODIUM CHLORIDE 0.9% 100 ML IV SCH ×2 (09:36→22:04)
[2018-05-22] MEDS ORDERED: ALBUTEROL/IPRATROPIUM 3 ML NEB RESP TX PRN (10:10)
[2018-05-22] MEDS ORDERED: MAGNESIUM SULF RIDER 4 GM in PREMIX 1 EACH IV PRN (10:11)
[2018-05-22] MEDS ORDERED: METOPROLOL TARTRATE 5 MG/5 ML VIAL IV ONE (10:12)
[2018-05-22] MEDS: MEROPENEM 1,000 MG in SODIUM CHLORIDE 0.9% 100 ML IV SCH (15:10)
[2018-05-22 15:11] LABS: Basophils % 0.3 % (0.0-0.8); Hematocrit 38.1 VOL% (35.7-47.0); Hemoglobin 11.9 GM/DL (12.0-16.0); Immature Granulocytes % 1.2 %; Immature Granulocytes Absolute 0.07 #; Lymphocytes # 0.3 10*3/uL (1.4-4.0); Lymphocytes % 4.4 % (21.3-54.2); Mean Corpuscular HGB Conc 31.2 GM/DL (32-36); Mean Corpuscular Hemoglobin 29 PG (27-34); Mean Corpuscular Volume 93.2 FL (87-102); Mean Platelet Volume 10.4 FL (9.6-12.0); Monocytes # 0.1 10*3/uL (0.11-0.8); Monocytes % 1.9 % (1.7-12.7); Neutrophils # 5.3 10*3/uL (1.4-7.4); Neutrophils % 92.2 % (38.7-73.9); Platelet Count 137 T/CUMM (130-400); Red Blood Count 4.09 MC/CUMM (3.8-5.5); Red Cell Distribution Width 13.9 % (9.3-17.3); White Blood Count 5.7 T/CUMM (4-12)
[2018-05-22 15:44] LABS: Calcium 7.4 MG/DL (8.5-10.1); Potassium 4.1 MMOL/L (3.5-5.1)
[2018-05-22] MEDS ORDERED: NOREPINEPHRINE 8 MG in SODIUM CHLORIDE 0.9% 242 ML IV PRN (16:02)
[2018-05-22] MEDS: MAGNESIUM SULF RIDER 2 GM in PREMIX 1 EACH IV PRN ×2 (16:27→18:03)
[2018-05-22 17:30] LABS: Lactic Acid 2.2 MMOL/L (0.4-2.0)
[2018-05-22 17:46] LABS: Band Neutrophils 13 % (0-10); Lymphocytes 4 % (20-55); Segmented Neutrophils 81 % (50-85)
[2018-05-22 17:47] LABS: Total Cells Counted 100
[2018-05-22] MEDS ORDERED: SODIUM CHLORIDE 0.9% 2,000 ML IV ONE (17:56)
[2018-05-22] MEDS: ATORVASTATIN 10 MG TABLET PO SCH (20:35)
[2018-05-22] MEDS: PREGABALIN 100 MG CAPSULE PO SCH (20:35)
[2018-05-22] MEDS: NYSTATIN 500,000 UNIT/5 ML UDCUP SWISH/SWAL SCH (20:35)
[2018-05-22] MEDS: OXYBUTYNIN XL 15 MG TABLET PO SCH (21:00)
[2018-05-23] MEDS: ACETAMINOPHEN 325 MG TABLET PO SCH ×4 (02:29→21:04)
[2018-05-23] MEDS: MEROPENEM 1,000 MG in SODIUM CHLORIDE 0.9% 100 ML IV SCH ×2 (02:50→15:10)
[2018-05-23 04:27] LABS: Basophils % 0.3 % (0.0-0.8); Eosinophils % 0.3 % (0.00-10.9); Hematocrit 33.3 VOL% (35.7-47.0); Hemoglobin 10.8 GM/DL (12.0-16.0); Immature Granulocytes Absolute 0.04 #; Lymphocytes # 0.4 10*3/uL (1.4-4.0); Lymphocytes % 9.1 % (21.3-54.2); Mean Corpuscular HGB Conc 32.4 GM/DL (32-36); Mean Corpuscular Hemoglobin 29 PG (27-34); Mean Corpuscular Volume 88.6 FL (87-102); Mean Platelet Volume 10.7 FL (9.6-12.0); Monocytes # 0.1 10*3/uL (0.11-0.8); Monocytes % 3.6 % (1.7-12.7); Neutrophils # 3.3 10*3/uL (1.4-7.4); Neutrophils % 85.7 % (38.7-73.9); Platelet Count 133 T/CUMM (130-400); Red Blood Count 3.76 MC/CUMM (3.8-5.5); White Blood Count 3.9 T/CUMM (4-12)
[2018-05-23 04:51] LABS: Calcium 7.2 MG/DL (8.5-10.1); Osmolality,Calculated 281.1 MOS/KG (273-304); Potassium 3.7 MMOL/L (3.5-5.1)
[2018-05-23] MEDS: SODIUM CHLORIDE 0.9% 1,000 ML IV SCH ×3 (05:04→22:40)
[2018-05-23 05:19] LABS: Band Neutrophils 11 % (0-10); Lymphocytes 5 % (20-55); Platelet Estimate Decreased; Segmented Neutrophils 82 % (50-85); Total Cells Counted 100
[2018-05-23] MEDS: LACTATED RINGERS 1,000 ML IV SCH (06:59)
[2018-05-23] MEDS: Dextroamphetamine/Amphetamine [Adderall Xr 30 Mg Capsule] PO SCH (08:48)
[2018-05-23] MEDS: ASPIRIN EC 81 MG TABLET PO SCH (09:01)
[2018-05-23] MEDS: ACYCLOVIR 200 MG CAPSULE PO SCH ×2 (09:02→21:05)
[2018-05-23] MEDS: TAMSULOSIN 0.4 MG CAPSULE PO SCH (09:02)
[2018-05-23] MEDS: LORATADINE 10 MG TABLET PO SCH (09:03)
[2018-05-23] MEDS: NYSTATIN 500,000 UNIT/5 ML UDCUP SWISH/SWAL SCH ×4 (09:03→21:05)
[2018-05-23] MEDS: POTASSIUM CHLORIDE 20 MEQ TABLET PO SCH (09:03)
[2018-05-23] MEDS: levETIRAcetam 500 MG TABLET PO SCH ×2 (09:05→21:04)
[2018-05-23] MEDS: GENTAMICIN INJ 140 MG in SODIUM CHLORIDE 0.9% 100 ML IV SCH ×2 (09:18→21:09)
[2018-05-23] MEDS: ATORVASTATIN 10 MG TABLET PO SCH (21:04)
[2018-05-23] MEDS: PREGABALIN 100 MG CAPSULE PO SCH (21:05)
[2018-05-23] MEDS: OXYBUTYNIN XL 15 MG TABLET PO SCH (21:05)
[2018-05-24] MEDS: ACETAMINOPHEN 325 MG TABLET PO SCH ×4 (03:07→20:31)
[2018-05-24] MEDS: MEROPENEM 1,000 MG in SODIUM CHLORIDE 0.9% 100 ML IV SCH ×2 (03:07→18:05)
[2018-05-24] MEDS: Dextroamphetamine/Amphetamine [Adderall Xr 30 Mg Capsule] PO SCH (08:45)
[2018-05-24] MEDS: NYSTATIN 500,000 UNIT/5 ML UDCUP SWISH/SWAL SCH ×4 (08:57→20:30)
[2018-05-24] MEDS: POTASSIUM CHLORIDE 20 MEQ TABLET PO SCH (08:59)
[2018-05-24] MEDS: TAMSULOSIN 0.4 MG CAPSULE PO SCH (08:59)
[2018-05-24] MEDS: ACYCLOVIR 200 MG CAPSULE PO SCH ×2 (08:59→20:32)
[2018-05-24] MEDS: ASPIRIN EC 81 MG TABLET PO SCH (08:59)
[2018-05-24] MEDS: levETIRAcetam 500 MG TABLET PO SCH ×2 (09:00→20:31)
[2018-05-24] MEDS: LORATADINE 10 MG TABLET PO SCH (09:00)
[2018-05-24] MEDS: GENTAMICIN INJ 140 MG in SODIUM CHLORIDE 0.9% 100 ML IV SCH (09:15)
[2018-05-24] MEDS: SODIUM CHLORIDE 0.9% 1,000 ML IV SCH ×3 (12:15→20:25)
[2018-05-24] MEDS: FLUCONAZOLE INJ 400 MG in PREMIX 1 EACH IV SCH (15:10)
[2018-05-24] MEDS: MORPHINE 10 MG/1 ML VIAL IV PRN (18:10)
[2018-05-24] MEDS: ENOXAPARIN 40 MG/0.4 ML SYRINGE SUBCUT SCH (20:30)
[2018-05-24] MEDS: PREGABALIN 100 MG CAPSULE PO SCH (20:32)
[2018-05-24] MEDS: ATORVASTATIN 10 MG TABLET PO SCH (20:32)
[2018-05-24] MEDS: OXYBUTYNIN XL 15 MG TABLET PO SCH (20:33)
[2018-05-25] MEDS: SODIUM CHLORIDE 0.9% 1,000 ML IV SCH ×3 (04:10→23:51)
[2018-05-25 06:16] LABS: Basophils % 0.2 % (0.0-0.8); Eosinophils # 0.1 10*3/uL (0.0-0.87); Eosinophils % 3.3 % (0.00-10.9); Hematocrit 34.7 VOL% (35.7-47.0); Hemoglobin 11.3 GM/DL (12.0-16.0); Immature Granulocytes % 0.2 %; Immature Granulocytes Absolute 0.01 #; Lymphocytes # 1.1 10*3/uL (1.4-4.0); Mean Corpuscular HGB Conc 32.6 GM/DL (32-36); Mean Corpuscular Hemoglobin 29 PG (27-34); Mean Platelet Volume 11.2 FL (9.6-12.0); Monocytes # 0.3 10*3/uL (0.11-0.8); Monocytes % 8.1 % (1.7-12.7); Neutrophils # 2.6 10*3/uL (1.4-7.4); Neutrophils % 61.2 % (38.7-73.9); Platelet Count 137 T/CUMM (130-400); Red Cell Distribution Width 14.6 % (9.3-17.3); White Blood Count 4.2 T/CUMM (4-12)
[2018-05-25 06:33] LABS: Calcium 7.8 MG/DL (8.5-10.1); Osmolality,Calculated 284.7 MOS/KG (273-304); Potassium 3.7 MMOL/L (3.5-5.1)
[2018-05-25 06:46] LABS: Band Neutrophils 2 % (0-10); Eosinophils 1 % (0-10); Lymphocytes 25 % (20-55); Segmented Neutrophils 65 % (50-85); Total Cells Counted 100
[2018-05-25 06:47] LABS: Anisocytosis 1+; Platelet Estimate Adequate
[2018-05-25] MEDS: ACETAMINOPHEN 325 MG TABLET PO SCH ×4 (07:26→21:50)
[2018-05-25] MEDS: MEROPENEM 1,000 MG in SODIUM CHLORIDE 0.9% 100 ML IV SCH ×2 (07:45→17:00)
[2018-05-25] MEDS: levETIRAcetam 500 MG TABLET PO SCH ×2 (08:35→21:39)
[2018-05-25] MEDS: TAMSULOSIN 0.4 MG CAPSULE PO SCH (08:35)
[2018-05-25] MEDS: POTASSIUM CHLORIDE 20 MEQ TABLET PO SCH (08:35)
[2018-05-25] MEDS: ASPIRIN EC 81 MG TABLET PO SCH (08:35)
[2018-05-25] MEDS: ACYCLOVIR 200 MG CAPSULE PO SCH ×2 (08:35→21:39)
[2018-05-25] MEDS: NYSTATIN 500,000 UNIT/5 ML UDCUP SWISH/SWAL SCH ×4 (08:35→21:38)
[2018-05-25] MEDS: LORATADINE 10 MG TABLET PO SCH (08:35)
[2018-05-25] MEDS: Dextroamphetamine/Amphetamine [Adderall Xr 30 Mg Capsule] PO SCH (09:28)
[2018-05-25] MEDS: FLUCONAZOLE INJ 400 MG in PREMIX 1 EACH IV SCH (14:18)
[2018-05-25] MEDS: OXYBUTYNIN XL 15 MG TABLET PO SCH (21:39)
[2018-05-25] MEDS: ATORVASTATIN 10 MG TABLET PO SCH (21:40)
[2018-05-25] MEDS: ENOXAPARIN 40 MG/0.4 ML SYRINGE SUBCUT SCH (21:47)
[2018-05-25] MEDS: PREGABALIN 100 MG CAPSULE PO SCH (23:20)
[2018-05-26] MEDS: ACETAMINOPHEN 325 MG TABLET PO SCH ×4 (04:47→20:58)
[2018-05-26] MEDS: MEROPENEM 1,000 MG in SODIUM CHLORIDE 0.9% 100 ML IV SCH (06:29)
[2018-05-26] MEDS: levETIRAcetam 500 MG TABLET PO SCH ×2 (09:00→20:41)
[2018-05-26] MEDS: ACYCLOVIR 200 MG CAPSULE PO SCH ×2 (09:01→20:41)
[2018-05-26] MEDS: LORATADINE 10 MG TABLET PO SCH (09:01)
[2018-05-26] MEDS: NYSTATIN 500,000 UNIT/5 ML UDCUP SWISH/SWAL SCH ×5 (09:02→20:59)
[2018-05-26] MEDS: POTASSIUM CHLORIDE 20 MEQ TABLET PO SCH (09:02)
[2018-05-26] MEDS: TAMSULOSIN 0.4 MG CAPSULE PO SCH (09:02)
[2018-05-26] MEDS: ASPIRIN EC 81 MG TABLET PO SCH (09:02)
[2018-05-26] MEDS: Dextroamphetamine/Amphetamine [Adderall Xr 30 Mg Capsule] PO SCH (09:09)
[2018-05-26] MEDS: ERTAPENEM 1,000 MG in SODIUM CHLORIDE 0.9% 100 ML IV SCH (09:14)
[2018-05-26] MEDS: SODIUM CHLORIDE 0.9% 1,000 ML IV SCH ×2 (09:15→16:58)
[2018-05-26] MEDS: FLUCONAZOLE INJ 400 MG in PREMIX 1 EACH IV SCH (17:00)
[2018-05-26] MEDS: PREGABALIN 100 MG CAPSULE PO SCH (20:41)
[2018-05-26] MEDS: ATORVASTATIN 10 MG TABLET PO SCH (20:41)
[2018-05-26] MEDS: OXYBUTYNIN XL 15 MG TABLET PO SCH (20:41)
[2018-05-26] MEDS: ENOXAPARIN 40 MG/0.4 ML SYRINGE SUBCUT SCH (20:45)
[2018-05-27] MEDS: ACETAMINOPHEN 325 MG TABLET PO SCH ×2 (03:36→09:38)
[2018-05-27] MEDS: SODIUM CHLORIDE 0.9% 1,000 ML IV SCH ×2 (03:40→09:38)
[2018-05-27] MEDS: Dextroamphetamine/Amphetamine [Adderall Xr 30 Mg Capsule] PO SCH (09:34)
[2018-05-27] MEDS: levETIRAcetam 500 MG TABLET PO SCH (09:35)
[2018-05-27] MEDS: NYSTATIN 500,000 UNIT/5 ML UDCUP SWISH/SWAL SCH (09:35)
[2018-05-27] MEDS: LORATADINE 10 MG TABLET PO SCH (09:36)
[2018-05-27] MEDS: ASPIRIN EC 81 MG TABLET PO SCH (09:37)
[2018-05-27] MEDS: ERTAPENEM 1,000 MG in SODIUM CHLORIDE 0.9% 100 ML IV SCH (09:37)
[2018-05-27] MEDS: POTASSIUM CHLORIDE 20 MEQ TABLET PO SCH (09:37)
[2018-05-27] MEDS: ACYCLOVIR 200 MG CAPSULE PO SCH (09:37)
[2018-05-27] MEDS: TAMSULOSIN 0.4 MG CAPSULE PO SCH (09:37)
[2018-05-27 11:50] VITALS: BP 104/72
[2018-05-29 23:51] LABS: Stone Source Passed Stone
== END 2018-05-27 11:20 | disposition home or self-care (01) | DRG 668 ==
LOC: N.OR 06:19 → N.SDSINP 06:20 → N.5E 09:47 → N.TELEN 18:00 → N.ICU 05-22 14:44 → N.5E 05-24 14:42
PROVIDERS: ADMIT Surgery; ATTEND Surgery

== ENCOUNTER 2020-01-08 17:12 | Inpatient (IN) ==
[2020-01-08] MEDS ORDERED: AZITHROMYCIN INJ 500 MG in SODIUM CHLORIDE 0.9% 250 ML IV STA (17:36)
[2020-01-08] MEDS ORDERED: cefTRIAXone 1,000 MG in SODIUM CHLORIDE 0.9% 100 ML IV STA (17:36)
[2020-01-08] MEDS ORDERED: ONDANSETRON 4 MG/2 ML VIAL IV PRN (18:30)
[2020-01-08] MEDS ORDERED: ACETAMINOPHEN 325 MG TABLET PO PRN (18:30)
[2020-01-08] MEDS ORDERED: PROMETHAZINE 25 MG TABLET PO PRN (18:38)
[2020-01-08] MEDS ORDERED: AZITHROMYCIN INJ 500 MG in SODIUM CHLORIDE 0.9% 250 ML IV SCH (19:00)
[2020-01-08 19:04] LABS: Basophils # 0.1 10*3/uL (0.0-0.2); Basophils % 0.4 % (0.0-0.8); Eosinophils # 0.2 10*3/uL (0.0-0.87); Eosinophils % 1.1 % (0.00-10.9); Hematocrit 40.7 VOL% (35.7-47.0); Hemoglobin 13.5 GM/DL (12.0-16.0); Immature Granulocytes % 0.3 %; Immature Granulocytes Absolute 0.05 #; Lymphocytes # 1.2 10*3/uL (1.4-4.0); Lymphocytes % 7.8 % (21.3-54.2); Mean Corpuscular HGB Conc 33.2 GM/DL (32-36); Mean Corpuscular Volume 96.2 FL (87-102); Monocytes % 3.8 % (1.7-12.7); Neutrophils % 86.6 % (38.7-73.9); Platelet Count 260 T/CUMM (130-400); Red Blood Count 4.23 MC/CUMM (3.8-5.5); Red Cell Distribution Width 14.2 % (9.3-17.3); White Blood Count 14.9 T/CUMM (4-12)
[2020-01-08 19:15] LABS: PT Patient Result 10.4 SECS (9.8-11.9); Partial Thromboplastin Time 27.9 SECS (23.9-33.8)
[2020-01-08 19:25] LABS: Albumin 2.8 G/DL (3.4-5.0); Bilirubin,Total 0.5 MG/DL (0.2-1.0); Calcium 8.9 MG/DL (8.5-10.1); Osmolality,Calculated 276.5 MOS/KG (273-304); Total Protein 7.8 G/DL (6.4-8.3)
[2020-01-08] MEDS ORDERED: tiZANidine 4 MG TABLET PO PRN (20:34)
[2020-01-08] MEDS ORDERED: BUTALBITAL/ACETAMIN/CAFFEINE 50-325-40 MG TABLET PO PRN (20:39)
[2020-01-08 20:49] LABS: Apearance,Urine CLEAR (Clear); Bilirubin,Urine Negative (Negative); Blood, Urine Negative (Negative); Glucose,Urine (UA) Negative (Negative); Ketones,Urine Negative (Negative); Mucus,Urine Many /LPF (Occasional); Nitrite,Urine Negative (Negative); Protein,Urine Negative; Squamous Epithelial Cell,Urine Occasional /HPF (0-10); Urine Color Amber (Yellow); Urine Specific Gravity 1.027 (1.001-1.035); Urine Urobilinogen < 2.0 EU/DL (0.2-1.0); WBC,Urine 1 /HPF (0-6)
[2020-01-08] MEDS ORDERED: ACYCLOVIR 400 MG PO SCH (21:00)
[2020-01-08] MEDS: levETIRAcetam 500 MG TABLET PO SCH (21:45)
[2020-01-08] MEDS: ATORVASTATIN 10 MG TABLET PO SCH (21:45)
[2020-01-08] MEDS: ENOXAPARIN 40 MG/0.4 ML SYRINGE SUBCUT SCH (21:45)
[2020-01-08] MEDS: PREGABALIN 100 MG CAPSULE PO SCH (21:45)
[2020-01-08] MEDS: AMITRIPTYLINE 50 MG TABLET PO SCH (21:45)
[2020-01-08] MEDS: DOCUSATE SODIUM 100 MG CAPSULE PO SCH (21:45)
[2020-01-08] MEDS: TOPIRAMATE 25 MG TABLET PO SCH (21:45)
[2020-01-08] MEDS: DEXTROSE 5% NACL 0.9% 1,000 ML IV SCH (21:45)
[2020-01-09] MEDS: AZITHROMYCIN 250 MG TABLET PO SCH (08:56)
[2020-01-09] MEDS: PANTOPRAZOLE 40 MG TABLET PO SCH (08:56)
[2020-01-09] MEDS: ASPIRIN EC 81 MG TABLET PO SCH (08:56)
[2020-01-09] MEDS: POTASSIUM CHLORIDE 20 MEQ TABLET PO SCH (08:57)
[2020-01-09] MEDS: DOCUSATE SODIUM 100 MG CAPSULE PO SCH ×2 (08:57→21:24)
[2020-01-09] MEDS: MULTIVITAMIN (CENTRUM) TABLET PO SCH (08:57)
[2020-01-09] MEDS: levETIRAcetam 500 MG TABLET PO SCH ×2 (08:57→21:24)
[2020-01-09] MEDS: TOPIRAMATE 25 MG TABLET PO SCH ×2 (08:57→21:24)
[2020-01-09] MEDS: FOLIC ACID 1 MG TABLET PO SCH (08:57)
[2020-01-09] MEDS: cefTRIAXone 1,000 MG in SYRINGE 1 EACH IV SCH (18:48)
[2020-01-09] MEDS: ATORVASTATIN 10 MG TABLET PO SCH (21:24)
[2020-01-09] MEDS: AMITRIPTYLINE 50 MG TABLET PO SCH (21:24)
[2020-01-09] MEDS: PREGABALIN 100 MG CAPSULE PO SCH (21:24)
[2020-01-09] MEDS: ENOXAPARIN 40 MG/0.4 ML SYRINGE SUBCUT SCH (21:24)
[2020-01-09] MEDS: DEXTROSE 5% NACL 0.9% 1,000 ML IV SCH (22:26)
[2020-01-10 07:01] LABS: Basophils # 0.1 10*3/uL (0.0-0.2); Basophils % 0.7 % (0.0-0.8); Eosinophils # 0.2 10*3/uL (0.0-0.87); Eosinophils % 3.2 % (0.00-10.9); Hematocrit 35.9 VOL% (35.7-47.0); Immature Granulocytes % 0.8 %; Immature Granulocytes Absolute 0.06 #; Lymphocytes # 1.9 10*3/uL (1.4-4.0); Lymphocytes % 25.6 % (21.3-54.2); Mean Corpuscular Volume 99.4 FL (87-102); Mean Platelet Volume 10.6 FL (9.6-12.0); Monocytes % 5.9 % (1.7-12.7); Neutrophils % 63.8 % (38.7-73.9); Platelet Count 248 T/CUMM (130-400); Red Blood Count 3.61 MC/CUMM (3.8-5.5); Red Cell Distribution Width 14.3 % (9.3-17.3)
[2020-01-10 07:03] LABS: Hemoglobin 11.5 GM/DL (12.0-16.0); White Blood Count 7.4 T/CUMM (4-12)
[2020-01-10 07:16] LABS: Alanine Aminotransferase 39 U/L (13-56); Albumin 2.3 G/DL (3.4-5.0); Alkaline Phosphatase 126 U/L (45-117); Aspartate Amino Transferase 27 U/L (0-37); Bilirubin,Total < 0.39 MG/DL (0.2-1.0); Blood Urea Nitrogen 8 MG/DL (7-18); Calcium 8.1 MG/DL (8.5-10.1); Estimated Glom Filtration Rate 88 ML/MIN; Glucose 122 MG/DL (74-106); HDL Cholesterol 22 MG/DL (40-60); Osmolality,Calculated 286.7 MOS/KG (273-304); Total Protein 6.3 G/DL (6.4-8.3); Triglycerides 104 MG/DL (2-150); VLDL CHOLESTEROL 20.8 MG/DL
[2020-01-10] MEDS: MULTIVITAMIN (CENTRUM) TABLET PO SCH (09:10)
[2020-01-10] MEDS: TOPIRAMATE 25 MG TABLET PO SCH ×2 (09:10→21:44)
[2020-01-10] MEDS: POTASSIUM CHLORIDE 20 MEQ TABLET PO SCH (09:10)
[2020-01-10] MEDS: ASPIRIN EC 81 MG TABLET PO SCH (09:10)
[2020-01-10] MEDS: FOLIC ACID 1 MG TABLET PO SCH (09:10)
[2020-01-10] MEDS: PANTOPRAZOLE 40 MG TABLET PO SCH (09:10)
[2020-01-10] MEDS: DOCUSATE SODIUM 100 MG CAPSULE PO SCH ×2 (09:10→21:44)
[2020-01-10] MEDS: AZITHROMYCIN 250 MG TABLET PO SCH (09:10)
[2020-01-10] MEDS: levETIRAcetam 500 MG TABLET PO SCH ×2 (09:10→21:43)
[2020-01-10] MEDS: cefTRIAXone 1,000 MG in SYRINGE 1 EACH IV SCH (18:48)
[2020-01-10] MEDS: ENOXAPARIN 40 MG/0.4 ML SYRINGE SUBCUT SCH (21:43)
[2020-01-10] MEDS: PREGABALIN 100 MG CAPSULE PO SCH (21:44)
[2020-01-10] MEDS: AMITRIPTYLINE 50 MG TABLET PO SCH (21:44)
[2020-01-10] MEDS: ATORVASTATIN 10 MG TABLET PO SCH (21:44)
[2020-01-11 05:59] LABS: Basophils # 0.1 10*3/uL (0.0-0.2); Basophils % 0.7 % (0.0-0.8); Eosinophils # 0.3 10*3/uL (0.0-0.87); Eosinophils % 3.3 % (0.00-10.9); Hematocrit 35.3 VOL% (35.7-47.0); Hemoglobin 11.2 GM/DL (12.0-16.0); Immature Granulocytes % 0.7 %; Immature Granulocytes Absolute 0.05 #; Lymphocytes # 2.4 10*3/uL (1.4-4.0); Lymphocytes % 32.4 % (21.3-54.2); Mean Corpuscular HGB Conc 31.7 GM/DL (32-36); Mean Corpuscular Volume 96.7 FL (87-102); Mean Platelet Volume 10.2 FL (9.6-12.0); Neutrophils % 56.9 % (38.7-73.9); Platelet Count 243 T/CUMM (130-400); Red Blood Count 3.65 MC/CUMM (3.8-5.5); Red Cell Distribution Width 14.1 % (9.3-17.3); White Blood Count 7.5 T/CUMM (4-12)
[2020-01-11 06:20] LABS: Alanine Aminotransferase 36 U/L (13-56); Albumin 2.4 G/DL (3.4-5.0); Alkaline Phosphatase 102 U/L (45-117); Aspartate Amino Transferase 21 U/L (0-37); Bilirubin,Total < 0.39 MG/DL (0.2-1.0); Blood Urea Nitrogen 6 MG/DL (7-18); Calcium 8.2 MG/DL (8.5-10.1); Estimated Glom Filtration Rate 104 ML/MIN; Glucose 117 MG/DL (74-106); Osmolality,Calculated 286.7 MOS/KG (273-304); Total Protein 6.1 G/DL (6.4-8.3)
[2020-01-11] MEDS: POTASSIUM CHLORIDE 20 MEQ TABLET PO SCH (09:26)
[2020-01-11] MEDS: ASPIRIN EC 81 MG TABLET PO SCH (09:26)
[2020-01-11] MEDS: PANTOPRAZOLE 40 MG TABLET PO SCH (09:26)
[2020-01-11] MEDS: levETIRAcetam 500 MG TABLET PO SCH ×2 (09:26→22:45)
[2020-01-11] MEDS: MULTIVITAMIN (CENTRUM) TABLET PO SCH (09:26)
[2020-01-11] MEDS: TOPIRAMATE 25 MG TABLET PO SCH ×2 (09:26→22:45)
[2020-01-11] MEDS: AZITHROMYCIN 250 MG TABLET PO SCH (09:26)
[2020-01-11] MEDS: DOCUSATE SODIUM 100 MG CAPSULE PO SCH ×2 (09:26→22:44)
[2020-01-11] MEDS: FOLIC ACID 1 MG TABLET PO SCH (09:26)
[2020-01-11] MEDS: DEXTROSE 5% NACL 0.9% 1,000 ML IV SCH ×2 (09:26→10:54)
[2020-01-11] MEDS: cefTRIAXone 1,000 MG in SYRINGE 1 EACH IV SCH (17:50)
[2020-01-11] MEDS: PREGABALIN 100 MG CAPSULE PO SCH (22:45)
[2020-01-11] MEDS: ENOXAPARIN 40 MG/0.4 ML SYRINGE SUBCUT SCH (22:45)
[2020-01-11] MEDS: ATORVASTATIN 10 MG TABLET PO SCH (22:45)
[2020-01-11] MEDS: AMITRIPTYLINE 50 MG TABLET PO SCH (22:47)
[2020-01-12 06:02] LABS: Basophils # 0.1 10*3/uL (0.0-0.2); Basophils % 0.9 % (0.0-0.8); Eosinophils # 0.2 10*3/uL (0.0-0.87); Hematocrit 38.7 VOL% (35.7-47.0); Hemoglobin 12.6 GM/DL (12.0-16.0); Immature Granulocytes % 0.9 %; Immature Granulocytes Absolute 0.06 #; Lymphocytes # 2.6 10*3/uL (1.4-4.0); Lymphocytes % 36.8 % (21.3-54.2); Mean Corpuscular HGB Conc 32.6 GM/DL (32-36); Mean Corpuscular Volume 96.8 FL (87-102); Mean Platelet Volume 10.2 FL (9.6-12.0); Monocytes % 7.2 % (1.7-12.7); Neutrophils % 51.2 % (38.7-73.9); Platelet Count 266 T/CUMM (130-400); Red Cell Distribution Width 13.8 % (9.3-17.3)
[2020-01-12 06:36] LABS: Albumin 2.5 G/DL (3.4-5.0); Bilirubin,Total 0.4 MG/DL (0.2-1.0); Calcium 8.4 MG/DL (8.5-10.1); Osmolality,Calculated 282.8 MOS/KG (273-304); Total Protein 6.7 G/DL (6.4-8.3)
[2020-01-12] MEDS: DOCUSATE SODIUM 100 MG CAPSULE PO SCH ×3 (13:29→22:45)
[2020-01-12] MEDS: MULTIVITAMIN (CENTRUM) TABLET PO SCH (13:29)
[2020-01-12] MEDS: ASPIRIN EC 81 MG TABLET PO SCH (13:29)
[2020-01-12] MEDS: POTASSIUM CHLORIDE 20 MEQ TABLET PO SCH (13:30)
[2020-01-12] MEDS: AZITHROMYCIN 250 MG TABLET PO SCH (13:30)
[2020-01-12] MEDS: PANTOPRAZOLE 40 MG TABLET PO SCH (13:30)
[2020-01-12] MEDS: TOPIRAMATE 25 MG TABLET PO SCH ×2 (13:30→21:30)
[2020-01-12] MEDS: levETIRAcetam 500 MG TABLET PO SCH ×2 (13:30→21:31)
[2020-01-12] MEDS: FOLIC ACID 1 MG TABLET PO SCH (13:30)
[2020-01-12] MEDS: DEXTROSE 5% NACL 0.9% 1,000 ML IV SCH (17:37)
[2020-01-12] MEDS: cefTRIAXone 1,000 MG in SYRINGE 1 EACH IV SCH (18:42)
[2020-01-12] MEDS: ATORVASTATIN 10 MG TABLET PO SCH (21:30)
[2020-01-12] MEDS: ENOXAPARIN 40 MG/0.4 ML SYRINGE SUBCUT SCH (21:33)
[2020-01-12] MEDS: PREGABALIN 100 MG CAPSULE PO SCH (21:34)
[2020-01-12] MEDS: AMITRIPTYLINE 50 MG TABLET PO SCH (21:42)
[2020-01-13] MEDS: DEXTROSE 5% NACL 0.9% 1,000 ML IV SCH (10:13)
[2020-01-13] MEDS: AZITHROMYCIN 250 MG TABLET PO SCH (10:24)
[2020-01-13] MEDS: MULTIVITAMIN (CENTRUM) TABLET PO SCH (10:24)
[2020-01-13] MEDS: levETIRAcetam 500 MG TABLET PO SCH (10:25)
[2020-01-13] MEDS: PANTOPRAZOLE 40 MG TABLET PO SCH (10:25)
[2020-01-13] MEDS: ASPIRIN EC 81 MG TABLET PO SCH (10:25)
[2020-01-13] MEDS: POTASSIUM CHLORIDE 20 MEQ TABLET PO SCH (10:25)
[2020-01-13] MEDS: DOCUSATE SODIUM 100 MG CAPSULE PO SCH (10:25)
[2020-01-13] MEDS: FOLIC ACID 1 MG TABLET PO SCH (10:26)
[2020-01-13] MEDS: TOPIRAMATE 25 MG TABLET PO SCH (10:26)
[2020-01-13 10:55] VITALS: BP 113/72
== END 2020-01-13 11:30 | disposition home or self-care (01) | DRG 194 ==
LOC: EDUNIT# → EDBD → N.ED 17:12 → N.EDINP 18:30 → N.2E 19:37
PROVIDERS: ADMIT Family Medicine; ATTEND Family Medicine

== ENCOUNTER 2021-09-04 16:21 | Inpatient (IN) ==
[2021-09-04] MEDS ORDERED: SODIUM CHLORIDE 0.9% 1,000 ML IV STA (17:06)
[2021-09-04 17:36] LABS: Basophils # 0.1 10*3/uL (0.0-0.2); Basophils % 0.7 % (0.0-0.8); Eosinophils # 0.2 10*3/uL (0.0-0.87); Eosinophils % 1.6 % (0.00-10.9); Hematocrit 42.2 VOL% (35.7-47.0); Hemoglobin 13.4 GM/DL (12.0-16.0); Immature Granulocytes % 0.6 %; Immature Granulocytes Absolute 0.06 #; Lymphocytes # 2.1 10*3/uL (1.4-4.0); Lymphocytes % 22.2 % (21.3-54.2); Mean Corpuscular HGB Conc 31.8 GM/DL (32-36); Mean Corpuscular Volume 96.1 FL (87-102); Mean Platelet Volume 10.8 FL (9.6-12.0); Monocytes % 5.9 % (1.7-12.7); Platelet Count 284 T/CUMM (130-400); Red Blood Count 4.39 MC/CUMM (3.8-5.5); Red Cell Distribution Width 13.5 % (9.3-17.3); White Blood Count 9.5 T/CUMM (4-12)
[2021-09-04 17:37] LABS: Alanine Aminotransferase 27 U/L (13-56); Albumin 2.9 G/DL (3.4-5.0); Alkaline Phosphatase 136 U/L (45-117); Amylase 18 U/L (25-115); Aspartate Amino Transferase 21 U/L (0-37); Bilirubin,Total < 0.39 MG/DL (0.20-1.00); Blood Urea Nitrogen 9 MG/DL (7-18); Calcium 8.7 MG/DL (8.5-10.1); Carbon Dioxide 30 MMOL/L (21-32); Estimated Glom Filtration Rate 95 ML/MIN; Glucose 119 MG/DL (74-106); Osmolality,Calculated 280.3 MOS/KG (273-304); Potassium 3.1 MMOL/L (3.5-5.1); Sodium 141 MMOL/L (136-145)
[2021-09-04 19:06] LABS: Bilirubin,Urine Negative (Negative); Blood, Urine Negative (Negative); Glucose,Urine (UA) Negative (Negative); Ketones,Urine Negative (Negative); Nitrite,Urine Negative (Negative); Protein,Urine Negative; RBC,Urine <1 /HPF (0-4); Squamous Epithelial Cell,Urine Occasional /HPF (0-10); Urine Appearance CLEAR (Clear); Urine Color Yellow (Yellow); Urine Specific Gravity 1.024 (1.001-1.035); Urine Urobilinogen < 2.0 EU/DL (0.2-1.0)
[2021-09-04] MEDS ORDERED: MORPHINE 2 MG/1 ML SYRINGE IV PRN (22:47)
[2021-09-04] MEDS ORDERED: ACETAMINOPHEN 325 MG TABLET PO PRN (22:47)
[2021-09-04] MEDS ORDERED: oxyCODONE/ACETAMINOPHEN 5-325 MG TABLET PO PRN (22:47)
[2021-09-04] MEDS ORDERED: PROMETHAZINE 25 MG/1 ML VIAL IM PRN (22:47)
[2021-09-04] MEDS ORDERED: ONDANSETRON 4 MG/2 ML VIAL IV PRN (22:47)
[2021-09-04] MEDS: DOCUSATE SODIUM 100 MG CAPSULE PO SCH (23:27)
[2021-09-04] MEDS: CIPROFLOXACIN INJ 400 MG/200 ML PREMIX IV SCH (23:30)
[2021-09-04] MEDS: SODIUM CHLORIDE 0.45% 1,000 ML IV SCH (23:30)
[2021-09-05] MEDS: metroNIDAZOLE INJ 500 MG/100 ML PREMIX IV SCH ×3 (00:50→17:30)
[2021-09-05] MEDS: SODIUM CHLORIDE 0.45% 1,000 ML IV SCH ×2 (07:14→17:29)
[2021-09-05] MEDS ORDERED: PROMETHAZINE 25 MG TABLET PO PRN (07:53)
[2021-09-05] MEDS ORDERED: HYDROmorphone 2 MG/1 ML VIAL IV STA (08:07)
[2021-09-05] MEDS ORDERED: tiZANidine 4 MG TABLET PO PRN (09:33)
[2021-09-05] MEDS ORDERED: BUTALBITAL/ACETAMIN/CAFFEINE 50-325-40 MG TABLET PO PRN (09:33)
[2021-09-05] MEDS: PANTOPRAZOLE 40 MG TABLET PO SCH (10:39)
[2021-09-05] MEDS: levETIRAcetam 500 MG TABLET PO SCH ×2 (10:39→21:32)
[2021-09-05] MEDS: TOPIRAMATE 25 MG TABLET PO SCH ×2 (10:39→21:26)
[2021-09-05] MEDS: ASPIRIN EC 81 MG TABLET PO SCH (10:40)
[2021-09-05] MEDS: DOCUSATE SODIUM 100 MG CAPSULE PO SCH ×2 (10:40→21:31)
[2021-09-05] MEDS: MULTIVITAMIN (CENTRUM) TABLET PO SCH (10:40)
[2021-09-05] MEDS: ACYCLOVIR 200 MG CAPSULE PO SCH ×2 (11:46→21:28)
[2021-09-05] MEDS ORDERED: ONDANSETRON 4 MG/2 ML VIAL IV ONE (11:47)
[2021-09-05] MEDS ORDERED: SODIUM CHLORIDE 0.9% 500 ML IV STA (11:48)
[2021-09-05] MEDS: CIPROFLOXACIN INJ 400 MG/200 ML PREMIX IV SCH (13:31)
[2021-09-05] MEDS: ATORVASTATIN 10 MG TABLET PO SCH (21:27)
[2021-09-05] MEDS: AMITRIPTYLINE 50 MG TABLET PO SCH (21:31)
[2021-09-05] MEDS: PREGABALIN 100 MG CAPSULE PO SCH (21:31)
[2021-09-06] MEDS: CIPROFLOXACIN INJ 400 MG/200 ML PREMIX IV SCH (00:10)
[2021-09-06] MEDS: SODIUM CHLORIDE 0.45% 1,000 ML IV SCH ×2 (01:45→07:56)
[2021-09-06] MEDS: metroNIDAZOLE INJ 500 MG/100 ML PREMIX IV SCH ×2 (01:46→08:36)
[2021-09-06] MEDS: DEXT 5% NACL 0.45% KCL 20 MEQ 20 MEQ/1,000 ML BAG IV SCH ×2 (08:36→18:01)
[2021-09-06] MEDS: MULTIVITAMIN (CENTRUM) TABLET PO SCH (08:37)
[2021-09-06] MEDS: TOPIRAMATE 25 MG TABLET PO SCH ×2 (08:37→23:40)
[2021-09-06] MEDS: DOCUSATE SODIUM 100 MG CAPSULE PO SCH ×2 (08:37→23:40)
[2021-09-06] MEDS: ASPIRIN EC 81 MG TABLET PO SCH (08:37)
[2021-09-06] MEDS: ACYCLOVIR 200 MG CAPSULE PO SCH ×2 (08:37→23:41)
[2021-09-06] MEDS: PANTOPRAZOLE 40 MG TABLET PO SCH (08:37)
[2021-09-06] MEDS: levETIRAcetam 500 MG TABLET PO SCH ×2 (08:37→23:42)
[2021-09-06] MEDS: CEFUROXIME 500 MG TABLET PO SCH ×2 (11:10→23:39)
[2021-09-06] MEDS: AMITRIPTYLINE 50 MG TABLET PO SCH (23:39)
[2021-09-06] MEDS: ATORVASTATIN 10 MG TABLET PO SCH (23:42)
[2021-09-06] MEDS: PREGABALIN 100 MG CAPSULE PO SCH (23:42)
[2021-09-07] MEDS: DEXT 5% NACL 0.45% KCL 20 MEQ 20 MEQ/1,000 ML BAG IV SCH ×2 (05:50→10:20)
[2021-09-07 08:07] VITALS: BP 140/87
[2021-09-07] MEDS: CEFUROXIME 500 MG TABLET PO SCH (09:04)
[2021-09-07] MEDS: TOPIRAMATE 25 MG TABLET PO SCH (09:05)
[2021-09-07] MEDS: PANTOPRAZOLE 40 MG TABLET PO SCH (09:11)
[2021-09-07] MEDS: ASPIRIN EC 81 MG TABLET PO SCH (09:11)
[2021-09-07] MEDS: DOCUSATE SODIUM 100 MG CAPSULE PO SCH (09:11)
[2021-09-07] MEDS: ACYCLOVIR 200 MG CAPSULE PO SCH (09:11)
[2021-09-07] MEDS: MULTIVITAMIN (CENTRUM) TABLET PO SCH (09:11)
[2021-09-07] MEDS: levETIRAcetam 500 MG TABLET PO SCH (09:11)
== END 2021-09-07 10:42 | disposition home or self-care (01) | DRG 392 ==
LOC: N.ED 16:21 → N.EDINP 19:55 → N.5E 09-05 17:20
PROVIDERS: ADMIT Family Medicine; ATTEND Family Medicine

== ENCOUNTER 2021-09-29 15:33 | Inpatient (IN) ==
[2021-09-29] MEDS ORDERED: PANTOPRAZOLE 40 MG VIAL IV STA (20:58)
[2021-09-29] MEDS ORDERED: ONDANSETRON 4 MG/2 ML VIAL IV STA (20:58)
[2021-09-29] MEDS ORDERED: MORPHINE 2 MG/1 ML SYRINGE IV STA ×2 (21:13→23:24)
[2021-09-29 21:47] LABS: Basophils # 0.1 10*3/uL (0.0-0.2); Basophils % 0.7 % (0.0-0.8); Eosinophils # 0.2 10*3/uL (0.0-0.87); Hematocrit 46.1 VOL% (35.7-47.0); Hemoglobin 14.6 GM/DL (12.0-16.0); Immature Granulocytes % 0.4 %; Immature Granulocytes Absolute 0.04 #; Lymphocytes # 1.8 10*3/uL (1.4-4.0); Lymphocytes % 20.1 % (21.3-54.2); Mean Corpuscular HGB Conc 31.7 GM/DL (32-36); Mean Corpuscular Volume 94.3 FL (87-102); Mean Platelet Volume 10.1 FL (9.6-12.0); Monocytes % 5.8 % (1.7-12.7); Platelet Count 240 T/CUMM (130-400); Red Blood Count 4.89 MC/CUMM (3.8-5.5); Red Cell Distribution Width 13.7 % (9.3-17.3)
[2021-09-29 22:13] LABS: Alanine Aminotransferase 46 U/L (13-56); Albumin 3.1 G/DL (3.4-5.0); Alkaline Phosphatase 119 U/L (45-117); Amylase 23 U/L (25-115); Aspartate Amino Transferase 31 U/L (0-37); Bilirubin,Total < 0.39 MG/DL (0.20-1.00); Blood Urea Nitrogen 8 MG/DL (7-18); Calcium 9.2 MG/DL (8.5-10.1); Carbon Dioxide 28 MMOL/L (21-32); Estimated Glom Filtration Rate 80 ML/MIN; Glucose 130 MG/DL (74-106); Osmolality,Calculated 282.1 MOS/KG (273-304); Potassium 3.6 MMOL/L (3.5-5.1); Sodium 142 MMOL/L (136-145); Total Protein 7.6 G/DL (6.4-8.2)
[2021-09-29 22:29] LABS: Bacteria,Urine Occasional /HPF (Few); Bilirubin,Urine Negative (Negative); Blood, Urine Negative (Negative); Calcium Oxalate Crystals,Urine Occasional /HPF (Few); Glucose,Urine (UA) Negative (Negative); Ketones,Urine Negative (Negative); Mucus,Urine Occasional /LPF (Occasional); Nitrite,Urine Negative (Negative); Protein,Urine Negative; RBC,Urine 1 /HPF (0-4); Squamous Epithelial Cell,Urine Occasional /HPF (0-10); Urine Appearance CLEAR (Clear); Urine Color Yellow (Yellow); Urine Specific Gravity 1.012 (1.001-1.035); Urine Urobilinogen < 2.0 EU/DL (<2.0)
[2021-09-29] MEDS ORDERED: SODIUM CHLORIDE 0.9% 1,000 ML IV STA (23:25)
[2021-09-30] MEDS ORDERED: ONDANSETRON 4 MG/2 ML VIAL IV STA (00:01)
[2021-09-30] MEDS ORDERED: MEROPENEM 1,000 MG in SODIUM CHLORIDE 0.9% 100 ML IV STA (00:37)
[2021-09-30] MEDS ORDERED: ONDANSETRON 4 MG/2 ML VIAL IV PRN (02:40)
[2021-09-30] MEDS ORDERED: ACETAMINOPHEN 325 MG TABLET PO PRN (02:40)
[2021-09-30] MEDS: SODIUM CHLORIDE 0.9% 1,000 ML IV SCH (04:47)
[2021-09-30] MEDS: PANTOPRAZOLE 40 MG TABLET PO SCH (09:33)
[2021-09-30] MEDS: MEROPENEM 500 MG in SODIUM CHLORIDE 0.9% 100 ML IV SCH ×3 (09:33→23:10)
[2021-09-30] MEDS ORDERED: tiZANidine 4 MG TABLET PO PRN (13:52)
[2021-09-30] MEDS ORDERED: BUTALBITAL/ACETAMIN/CAFFEINE 50-325-40 MG TABLET PO PRN (13:53)
[2021-09-30] MEDS: ASPIRIN EC 81 MG TABLET PO SCH (15:08)
[2021-09-30] MEDS: levETIRAcetam 500 MG TABLET PO SCH ×2 (15:09→23:11)
[2021-09-30] MEDS: NYSTATIN CREAM 15 GM TUBE TOP SCH ×2 (15:12→23:12)
[2021-09-30] MEDS: TOPIRAMATE 25 MG TABLET PO SCH ×2 (15:12→23:11)
[2021-09-30] MEDS: ACYCLOVIR 200 MG CAPSULE PO SCH ×2 (15:13→23:11)
[2021-09-30] MEDS: ATORVASTATIN 10 MG TABLET PO SCH (23:11)
[2021-09-30] MEDS: PREGABALIN 100 MG CAPSULE PO SCH (23:11)
[2021-09-30] MEDS: AMITRIPTYLINE 50 MG TABLET PO SCH (23:12)
[2021-10-01] MEDS: MEROPENEM 500 MG in SODIUM CHLORIDE 0.9% 100 ML IV SCH (04:50)
[2021-10-01 06:10] LABS: Basophils % 0.8 % (0.0-0.8); Eosinophils # 0.1 10*3/uL (0.0-0.87); Eosinophils % 2.3 % (0.00-10.9); Hematocrit 41.3 VOL% (35.7-47.0); Hemoglobin 12.8 GM/DL (12.0-16.0); Immature Granulocytes % 0.4 %; Immature Granulocytes Absolute 0.02 #; Lymphocytes # 1.6 10*3/uL (1.4-4.0); Lymphocytes % 30.5 % (21.3-54.2); Mean Corpuscular Volume 97.6 FL (87-102); Mean Platelet Volume 10.8 FL (9.6-12.0); Monocytes % 6.3 % (1.7-12.7); Neutrophils % 59.7 % (38.7-73.9); Platelet Count 204 T/CUMM (130-400); Red Blood Count 4.23 MC/CUMM (3.8-5.5); Red Cell Distribution Width 13.6 % (9.3-17.3); White Blood Count 5.1 T/CUMM (4-12)
[2021-10-01 06:28] LABS: Calcium 8.1 MG/DL (8.5-10.1); Potassium 3.5 MMOL/L (3.5-5.1)
[2021-10-01] MEDS: TOPIRAMATE 25 MG TABLET PO SCH ×2 (09:44→21:26)
[2021-10-01] MEDS: ACYCLOVIR 200 MG CAPSULE PO SCH ×2 (09:44→21:26)
[2021-10-01] MEDS: levETIRAcetam 500 MG TABLET PO SCH ×2 (09:44→21:26)
[2021-10-01] MEDS: NYSTATIN CREAM 15 GM TUBE TOP SCH ×2 (09:45→21:31)
[2021-10-01] MEDS: ASPIRIN EC 81 MG TABLET PO SCH (09:45)
[2021-10-01] MEDS: PANTOPRAZOLE 40 MG TABLET PO SCH (09:45)
[2021-10-01] MEDS ORDERED: ZINC OXIDE PASTE 113 GM TUBE TOP PRN (11:03)
[2021-10-01] MEDS: PIPERACILLIN/TAZOBACTAM 3,375 MG in SODIUM CHLORIDE 0.9% 100 ML IV SCH ×2 (14:34→21:27)
[2021-10-01] MEDS: PREGABALIN 100 MG CAPSULE PO SCH (21:27)
[2021-10-01] MEDS: AMITRIPTYLINE 50 MG TABLET PO SCH (21:27)
[2021-10-01] MEDS: ATORVASTATIN 10 MG TABLET PO SCH (21:27)
[2021-10-02] MEDS: PIPERACILLIN/TAZOBACTAM 3,375 MG in SODIUM CHLORIDE 0.9% 100 ML IV SCH ×3 (05:04→21:37)
[2021-10-02] MEDS: TOPIRAMATE 25 MG TABLET PO SCH ×2 (09:18→21:37)
[2021-10-02] MEDS: ACYCLOVIR 200 MG CAPSULE PO SCH ×2 (09:19→21:37)
[2021-10-02] MEDS: PANTOPRAZOLE 40 MG TABLET PO SCH (09:19)
[2021-10-02] MEDS: ASPIRIN EC 81 MG TABLET PO SCH (09:19)
[2021-10-02] MEDS: SODIUM CHLORIDE 0.9% 1,000 ML IV SCH ×2 (09:20→19:59)
[2021-10-02] MEDS: NYSTATIN CREAM 15 GM TUBE TOP SCH ×2 (09:21→21:40)
[2021-10-02] MEDS: levETIRAcetam 500 MG TABLET PO SCH ×2 (09:22→21:37)
[2021-10-02] MEDS: PREGABALIN 100 MG CAPSULE PO SCH (21:36)
[2021-10-02] MEDS: AMITRIPTYLINE 50 MG TABLET PO SCH (21:37)
[2021-10-02] MEDS: ATORVASTATIN 10 MG TABLET PO SCH (21:37)
[2021-10-03] MEDS: SODIUM CHLORIDE 0.9% 1,000 ML IV SCH ×4 (05:21→13:25)
[2021-10-03] MEDS: PIPERACILLIN/TAZOBACTAM 3,375 MG in SODIUM CHLORIDE 0.9% 100 ML IV SCH ×3 (05:54→20:55)
[2021-10-03] MEDS: levETIRAcetam 500 MG TABLET PO SCH ×2 (08:44→20:54)
[2021-10-03] MEDS: ACYCLOVIR 200 MG CAPSULE PO SCH ×2 (08:44→20:54)
[2021-10-03] MEDS: PANTOPRAZOLE 40 MG TABLET PO SCH (08:44)
[2021-10-03] MEDS: ASPIRIN EC 81 MG TABLET PO SCH (08:45)
[2021-10-03] MEDS: TOPIRAMATE 25 MG TABLET PO SCH ×2 (08:45→20:54)
[2021-10-03] MEDS: NYSTATIN CREAM 15 GM TUBE TOP SCH ×2 (10:35→20:55)
[2021-10-03] MEDS: PREGABALIN 100 MG CAPSULE PO SCH (20:54)
[2021-10-03] MEDS: ATORVASTATIN 10 MG TABLET PO SCH (20:54)
[2021-10-03] MEDS: AMITRIPTYLINE 50 MG TABLET PO SCH (21:04)
[2021-10-04] MEDS: PIPERACILLIN/TAZOBACTAM 3,375 MG in SODIUM CHLORIDE 0.9% 100 ML IV SCH ×2 (04:44→14:22)
[2021-10-04] MEDS: SODIUM CHLORIDE 0.9% 1,000 ML IV SCH ×3 (04:46→13:54)
[2021-10-04] MEDS: TOPIRAMATE 25 MG TABLET PO SCH (09:18)
[2021-10-04] MEDS: PANTOPRAZOLE 40 MG TABLET PO SCH (09:18)
[2021-10-04] MEDS: levETIRAcetam 500 MG TABLET PO SCH (09:18)
[2021-10-04] MEDS: ACYCLOVIR 200 MG CAPSULE PO SCH (09:18)
[2021-10-04] MEDS: ASPIRIN EC 81 MG TABLET PO SCH (09:18)
[2021-10-04] MEDS: NYSTATIN CREAM 15 GM TUBE TOP SCH (13:54)
[2021-10-04 16:35] VITALS: BP 152/82
== END 2021-10-04 16:20 | disposition home health service (06) | DRG 392 ==
LOC: N.EDINP 15:33 → N.ED 15:33 → N.EDINP 09-30 02:33 → N.3E 09-30 02:38
PROVIDERS: ADMIT Family Medicine; ATTEND Family Medicine